=== PATIENT | female | born 1940 | race Caucasian/White ===

== ENCOUNTER → 2018-05-05 10:47 | Outpatient (CLI) | payer MEDICARE, SELFPAY ==
--- NOTE | 2018-05-05 10:54 | RAD_ITS ---
STUDY: X-RAY - ABDOMEN/PELVIS REASON FOR EXAM: Female, 77 years old. Abdominal pain and back pain TECHNIQUE: AP supine and upright views of the abdomen and pelvis. COMPARISON: None. FINDINGS: Normal visualized lung bases. There is a moderate amount of colonic fecal material. There is no demonstrated free abdominal air. The visualized liver, spleen and kidneys are grossly normal in size and morphology. Normal soft tissue structures. Bilateral hip replacements RAD/Abd Inc Decub and/or Erect IMPRESSION: No acute findings Electronically Signed: Andrés Claudio DO at 9:13 EDT Tel , Service support ,
== END ==
PROVIDERS: Family Provider Family Medicine; PCP Family Medicine; Visit Provider Family Medicine
DX: R10.9 Unspecified abdominal pain (principal)
CPT/HCPCS: 74019

== ENCOUNTER → 2018-07-25 11:10 | Outpatient (CLI) | payer MEDICARE, SELFPAY ==
--- NOTE | 2018-07-25 11:15 | RAD_ITS ---
STUDY: X-RAY - FACIAL BONES REASON FOR STUDY: Female, 78 years old. Fall 3 days ago. Multiple contusions. TECHNIQUE: 3 view(s) of the facial bones. COMPARISON: None. FINDINGS: Normal bilateral frontozygomatic and zygomatic-temporal arches. Normal bilateral medial and inferior orbital faustin. Normal bilateral orbits. Normal visualized nasal bones. Normal anterior nasal spine. The remaining visualized osseous structures are normal. Normal visualized paranasal sinuses. RAD/Facial Bones min 3 Views IMPRESSION: No visualized facial bone fracture or dislocation. Electronically Signed: Juan Manuel Castro DO at 18:04 EDT Tel [phone], Service support ,
--- NOTE | 2018-07-25 11:15 | RAD_ITS ---
STUDY: X-RAY - LEFT WRIST REASON FOR EXAM: Female, 78 years old. Fall 3 weeks ago. Multiple contusions and swelling. TECHNIQUE: 3 view(s) of the wrist were obtained. COMPARISON: None. FINDINGS: There is demineralization of the radius and ulna. There is degenerative arthrosis of the radiocarpal articulation. Normal distal radioulnar articulation. There is demineralization of the carpal bones. There is degenerative arthrosis of the carpal articulations. Normal carpometacarpal articulation of the thumb. Normal second through fifth carpometacarpal articulations. There is demineralization of the metacarpal bones. There is an oblique fracture through the distal shaft of the fifth metacarpal with palmar and cephalad displacement of the distal fracture fragment Soft tissue swelling over the lateral hand. RAD/Wrist min 3 Views IMPRESSION: 1. Displaced oblique fracture of the fifth metacarpal. 2. Osteopenia and degenerative changes of the wrist. Electronically Signed: Juan Manuel Castro DO at 18:07 EDT Tel [phone], Service support ,
== END ==
PROVIDERS: Family Provider Family Medicine; PCP Family Medicine; Referring Provider Family Medicine; Visit Provider Family Medicine
DX: T07.XXXA Unspecified multiple injuries, initial encounter (principal)
CPT/HCPCS: 70150; 73110

== ENCOUNTER → 2018-10-09 16:52 | Outpatient (CLI) | payer MEDICARE, SELFPAY ==
[2018-10-09 18:04] LABS: Absolute Lymphocyte Count 1.61 X10^3/ul (0.83-4.51); Absolute Neutrophil Count 3.9 X10^3/uL (2.0-7.7); Basophil# 0.02 X10^3/uL; Basophil% 0.3 % (0-1); Eosinophil# 0.09 X10^3/uL; Eosinophils% 1.5 % (0-5); Hematocrit 33.2 % (37-47); Hemoglobin 10.2 g/dl (12.0-15.0); Lymphocyte # 1.61 X10^3/ul (4.0); Lymphocyte % 26.6 % (19-41); Mean Corp Hgb Conc 30.7 g/gl (32-36); Mean Corpuscular Hgb 29.7 pg (27.0-32.0); Mean Corpuscular Volume 96.5 fL (81-99); Mean Platelet Vol. 11.1 fl (6.2-12.0); Monocyte# 0.43 X10^3/uL; Monocyte% 7.1 % (0-10); Neutrophil % 64.5 % (47-70); Platelet Count 165 K/mm3 (150-450); RBC Distribution Width CV 14.6 % (11.6-14.6); RBC Distribution Width SD 48.4 fl (35.1-43.9); Red Blood Count 3.44 M/mm3 (4.2-5.4); White Blood Count 6.1 K/mm3 (4.4-11.0)
[2018-10-09 18:13] LABS: ALB/GLOB Ratio 0.9 RATIO (0.9-2.4); AST(SGOT) 19 U/L (15-37); Alanine Aminotransfer ALT/SGPT 19 U/L (13-56); Albumin, Serum 3.2 g/dL (3.2-5.0); Alkaline Phosphatase 60 U/L (45-117); Anion Gap 9 (5-15); BUN 26 mg/dL (7-18); BUN/Creat Ratio 14.9 RATIO (10-20); Calcium,Total 8.4 mg/dL (8.5-10.1); Chloride 106 mmol/L (98-107); Creatinine, Serum 1.75 mg/dL (0.55-1.02); EST Glomerular Filtration Rate 30 mL/min (>60); Est Glom Filt Rate - Afr Amer 36 mL/min (>60); Globulin 3.7 g/dL (2.2-4.2); Glucose 98 mg/dL (74-106); Potassium 4.2 mmol/L (3.5-5.1); Protein, Total 6.9 g/dL (6.4-8.2); Sodium Level 143 mmol/L (136-145); Thyroid Stim Hormone (TSH) 2.04 uIU/mL (0.358-3.74)
[2018-10-09 18:19] LABS: POSITIVE COUNT NO; POSITIVE DIFFERENTIAL NO; POSITIVE MORPHOLOGY NO
--- OUTSIDE RECORDS SUMMARY | 2019-01-11 09:24 | XMS RPT_ITS ---
:1940 Author Organization OHIP Support Name Relationship Address Phone BUD BELL Unavailable [address] + [place] [address] BELL, RIAN/GUILLERMO Unavailable [address] + [place] [address] R Unavailable Unavailable Unavailable BELLBUD Unavailable [address] + [place] [address] BELL, RIAN/GUILLERMO Unavailable [address] + [place] [address] R Unavailable Unavailable Unavailable BELLBUD Unavailable [address] + [place] [address] BELL, RIAN/GUILLERMO Unavailable [address] + [place] [address] R Unavailable Unavailable Unavailable BELLBUD Brandon Unavailable [address] + [place] [address] ARABELLA BUD Unavailable [address] + [place] [address] BELLBUD Brandon Unavailable [address] + [place] [address] BELL, RIAN/GUILLERMO Unavailable [address] + [place] [address] R Unavailable Unavailable Unavailable BELLBUD Brandon Unavailable [address] + [place] [address] BELL, RIAN/GUILLERMO Unavailable [address] + [place] [address] R Unavailable Unavailable Unavailable BELLBUD Unavailable [address] + [place] [address] ARABELLABUD Unavailable [address] + [place] [address] BUD BELL Unavailable [address] + [place] [address] BUD BELL Unavailable [address] + [place] [address] Care Team Providers Name Role Phone SONALI BARBARA Attending Unavailable PHUC PARKER, DR. MOODY Primary Care Unavailable BARBARA LYON Attending Unavailable PHUC PARKER, DR. MOODY Primary Care Unavailable PHUC PARKER, DR. MOODY Primary Care Unavailable PHUC PARKER, DR. MOODY Attending Unavailable Jolliff, Candis Attending Unavailable Jolliff, Candis Primary Care Unavailable Jolliff, Candis Attending Unavailable Jolliff, Candis Referring Unavailable Jolliff, Candis Primary Care Unavailable Jolliff, Candis Attending Unavailable Jolliff, Candis Referring Unavailable Jolliff, Candis Primary Care Unavailable Jolliff, Candis Attending Unavailable Jolliff, Candis Referring Unavailable Jolliff, Candis Primary Care Unavailable Evangelista Mc Attending Unavailable Jolliff, Candis Referring Unavailable PROBLEMS PROBLEMS DATE TYPE CONDITION / CODE ATTENDING STATUS SOURCE 07/25/2018 Unknown T07.XXXA - Candis Lawler [facility] multiple Hospital injuries, initial Repository encounter / T07.XXXA(ICD-10) 05/05/2018 Unknown R10.9 - Phuc, Candis [facility] abdominal pain / Hospital R10.9(ICD-10) Repository PROCEDURES PROCEDURES No Procedure Records FoundRESULTS RESULTS ECHO, COMPLETE W/ Observed: 10/13/2018 Status: F Source: [place] CONTRAST 2:24 PM [facility] Cardiovascular Services [address] [place] [address] Echo Complete W/ Contrast 10/13/18 1252 MR#: [id number] Acct: [id number] Name: GIOVANNY BELL Rep #: [id number] : 1940 78 From: Evangelista Mc MD Attending Dr: Candis Lawler MD Status: REG CLI Ordering Dr: Candis Lawler MD Date: 10/13/18 Location: [facility] Sex: F C Admitted: Reason For Study: EDEMA Procedure This was a 2D Doppler, Color Flow transthoracic echocardiogram. The study was technically difficult. Due to left mastectomy and prosthesis. Exam performed in department. Left Ventricle Normal size and thickness. The estimated ejection fraction is 65 %. Stage 1 diastolic dysfunction. No regional wall motion abnormalities noted. Right Ventricle Normal size and thickness. Normal systolic function. Atria The left atrium is mildly enlarged. The right atrium is mildly enlarged. Normal atrial septum. Mitral Valve The mitral valve is structurally normal. No prolapse or stenosis seen. Trivial mitral valve insufficiency. Tricuspid Valve Normal tricuspid valve. Trivial tricuspid valve insufficiency. Right ventricular systolic pressure estimated to be 37 mmHg. Aortic Valve Trisinus/trileaflet aortic valve. Mild diffuse aortic valve thickening. Pulmonic Valve The pulmonic valve is not well visualized. Great Vessels Normal aortic root. Normal arch. Pericardium/Pleural No pericardial effusion. Medication 22 gauge I.V. with prn adaptor inserted into right arm. Diluted definity 2.0ml given slow IV push to enhance endocardial definition. MMode/2D Measurements AND Calculations LVIDd: 4.6 cm IVSd: 0.89 cm Ao root diam: 3.2 cm LVIDs: 2.7 cm LVPWd: 0.88 cm RVDd: 3.0 cm FS: 40.4 % LAV(MOD-bp): 70.6 ml LA A4 area: 22.1 cm2 RA A4 area: 21.6 cm2 LAV(MOD-bp) Indexed: 40.2 ml/m2 LAV(MOD-sp2): 63.1 ml LAV(MOD-sp4): 68.9 ml Time Measurements MV dec time: 0.23 sec Doppler Measurements AND Calculations MV E max kvng: 84.4 cm/sec Lat Peak E' Kvng: 3.7 cm/sec Med Peak E' Kvng: 4.0 cm/sec MV A max kvng: 91.8 cm/sec E/E' lat: 22.6 E/E' med: 21.1 MV E/A: 0.92 Ao V2 max: 147.8 cm/sec LV V1 max: 83.0 cm/sec PA V2 max: 55.4 cm/sec Ao max P.7 mmHg LV V1 max P.8 mmHg TR max kvng: 280.4 cm/sec TR max P.5 mmHg Interpretation Summary The estimated ejection fraction is 65 %. Stage 1 diastolic dysfunction. Trivial mitral valve insufficiency. Trivial tricuspid valve insufficiency. Right ventricular systolic pressure estimated to be 37 mmHg. The study was technically difficult. There is no comparison study available. Contrast injection was performed. Ordering Physician: Candis Lawler Referring Physician: Candis Lawler Performed By: Love Toro RDCS, RVT 10/13/18 1424 Date Evangelista Mc MD CC: Candis Lawler MD Date Dictated: 10/13/18 1252 Date Transcribed: 10/13/18 142 Machine Buffer: Signed COMPREHENSIVE METABOLIC Collected: 10/09/2018 Status: F Source: [place] LONGORIA 4:55 PM [facility] TYPE CODE TESTS RESULT OUT OF RANGE REFERENCE UNITS LAB L501.0100 74-106 mg/dL Normal GLU 98 Result Comment: Please note revised GLUCOSE reference range effective 2017. LAB L501.1000 7-18 mg/dL High BUN 26 LAB L501.1100 0.55-1.02 mg/dL High CREAT,SERUM 1.75 Result Comment: The validity of the calculated GFR AND GFRAA in patients over 70 years has not been determined. Clinical correlation is essential. LAB L501.1110 >60 mL/min Low EST GFR 30 Result Comment: Non- GFR Calc LAB L501.1115 >60 mL/min Low EST GFR - AA 36 Result Comment: GFR Calc LAB L501.1300 10-20 RATIO Normal BUN/CRE 14.9 LAB L501.1500 6.4-8.2 g/dL T Normal PROT 6.9 LAB L501.1800 3.2-5.0 g/dL Normal ALB 3.2 LAB L501.1950 2.2-4.2 g/dL Normal GLOB 3.7 LAB L501.2000 0.9-2.4 RATIO Normal A/G 0.9 LAB L501.2200 8.5-10.1 mg/dL Low CA 8.4 LAB L501.4100 15-37 U/L Normal AST 19 LAB L501.4305 45-117 U/L Normal ALK P 60 LAB L501.4405 13-56 U/L Normal ALT 19 LAB L501.4600 0.20-1.00 mg/dL T Normal BILI 0.30 LAB L501.5300 136-145 mmol/L NA Normal 143 LAB L501.5600 3.5-5.1 mmol/L K Normal 4.2 LAB L501.5900 98-107 mmol/L CL Normal 106 LAB L501.6100 21.0-32.0 mmol/L Normal CO2 28.0 LAB L501.6200 5-15 Normal GAP 9 Performed By: #### L500.4050, L501.9520 #### [facility] [address] [place], [place], [address] THYROID STIM HORMONE Collected: 10/09/2018 Status: F Source: [place] (TSH) 4:55 PM [facility] TYPE CODE TESTS RESULT OUT OF RANGE REFERENCE UNITS LAB L501.9520 0.358-3.74 uIU/mL Normal TSH 2.04 Performed By: #### L500.4050, L501.9520 #### [facility] [place], [address] CBC W/DIFF, AUTOMATED Collected: 10/09/2018 Status: F Source: [place] 4:55 PM [facility] TYPE CODE TESTS RESULT OUT OF RANGE REFERENCE UNITS LAB L100.1000 4.4-11.0 K/mm3 Normal WBC 6.1 LAB L100.1200 4.2-5.4 M/mm3 Low RBC 3.44 LAB L100.1300 12.0-15.0 g/dl Low HGB 10.2 LAB L100.1400 37-47 % Low HCT 33.2 LAB L100.1500 81-99 fL Normal MCV 96.5 LAB L100.1600 27.0-32.0 pg Normal MCH 29.7 LAB L100.1700 32-36 g/gl Low MCHC 30.7 LAB L100.1810 11.6-14.6 % Normal RDW CV 14.6 LAB L100.1820 35.1-43.9 fl High RDW SD 48.4 LAB L100.1900 150-450 K/mm3 Normal PLT 165 LAB L100.2000 6.2-12.0 fl Normal MPV 11.1 LAB L100.2100 47-70 % Normal NEUT% 64.5 LAB L100.2200 19-41 % Normal LY% 26.6 LAB L100.2300 0-10 % Normal MONO% 7.1 LAB L100.2400 0-5 % Normal EO% 1.5 LAB L100.2500 0-1 % Normal BASO% 0.3 LAB L100.2550 0.0-0.9 % Normal IM GRAN % 0.000 Result Comment: IG% - Immature Granulocytes (promyelocytes, myelocytes and metamyelocytes) > 1% indicates that a LEFT SHIFT is Present. LAB L100.2620 2.0-7.7 X10 3/uL Normal Absolute Neut 3.9 LAB L100.2720 0.83-4.51 X10 3/ul Normal Absolute Lymph 1.61 Performed By: #### L100.0100 #### [facility] [address] [place], [address] FACIAL BONES MIN 3 Observed: 07/25/2018 Status: F Source: [place] VIEWS 11:16 AM [facility] Imaging Services [address] [place] [address] Facial Bones min 3 Views MR#: [id number] Acct: [id number] Name: GIOVANNY BELL Rep #: [id number] : 1940 F 78 From: Juan Manuel Castro DO PCP: Candis Lawler MD Status: REG CLI Study: Facial Bones min 3 Views Date of Exam: 07/25/18 Exam# [id number] Ordering Dr: Candis Lawler MD STUDY: X-RAY - FACIAL BONES REASON FOR STUDY: Female, 78 years old. Fall 3 days ago. Multiple contusions. TECHNIQUE: 3 view(s) of the facial bones. COMPARISON: None. FINDINGS: Normal bilateral frontozygomatic and zygomatic-temporal arches. Normal bilateral medial and inferior orbital faustin. Normal bilateral orbits. Normal visualized nasal bones. Normal anterior nasal spine. The remaining visualized osseous structures are normal. Normal visualized paranasal sinuses. RAD/Facial Bones min 3 Views IMPRESSION: No visualized facial bone fracture or dislocation. Electronically Signed: Juan Manuel Castro DO at 18:04 EDT Tel [phone], Service support , CC: Candis Lawler MD Machine Buffer: Signed WRIST MIN 3 VIEWS Observed: 07/25/2018 Status: F Source: [place] 11:16 AM [facility] Imaging Services [address] [place] [address] Wrist min 3 Views MR#: [id number] Acct: [id number] Name: GIOVANNY BELL Rep #: [id number] : 1940 F 78 From: Juan Manuel Castro DO PCP: Candis Lawler MD Status: REG CLI Study: Wrist min 3 Views Date of Exam: 07/25/18 Exam# [id number] Ordering Dr: Candis Lawler MD STUDY: X-RAY - LEFT WRIST REASON FOR EXAM: Female, 78 years old. Fall 3 weeks ago. Multiple contusions and swelling. TECHNIQUE: 3 view(s) of the wrist were obtained. COMPARISON: None. FINDINGS: There is demineralization of the radius and ulna. There is degenerative arthrosis of the radiocarpal articulation. Normal distal radioulnar articulation. There is demineralization of the carpal bones. There is degenerative arthrosis of the carpal articulations. Normal carpometacarpal articulation of the thumb. Normal second through fifth carpometacarpal articulations. There is demineralization of the metacarpal bones. There is an oblique fracture through the distal shaft of the fifth metacarpal with palmar and cephalad displacement of the distal fracture fragment Soft tissue swelling over the lateral hand. RAD/Wrist min 3 Views IMPRESSION: 1. Displaced oblique fracture of the fifth metacarpal. 2. Osteopenia and degenerative changes of the wrist. Electronically Signed: Juan Manuel Castro DO at 18:07 EDT Tel [phone], Service support , CC: Candis Lawler MD Machine Buffer: Signed ABD INC DECUB Observed: 05/05/2018 Status: F Source: [place] AND/OR ERECT 11:02 AM [facility] Imaging Services [address] [place] [address] Abd Inc Decub and/or Erect MR#: [id number] Acct: [id number] Name: GIOVANNY BELL Rep #: [id number] : 1940 F 77 From: Andrés Claudio DO PCP: Candis Lawler MD Status: REG CLI Study: Abd Inc Decub and/or Erect Date of Exam: 05/05/18 Exam# [id number] Ordering Dr: Candis Lawler MD STUDY: X-RAY - ABDOMEN/PELVIS REASON FOR EXAM: Female, 77 years old. Abdominal pain and back pain TECHNIQUE: AP supine and upright views of the abdomen and pelvis. COMPARISON: None. FINDINGS: Normal visualized lung bases. There is a moderate amount of colonic fecal material. There is no demonstrated free abdominal air. The visualized liver, spleen and kidneys are grossly normal in size and morphology. Normal soft tissue structures. Bilateral hip replacements RAD/Abd Inc Decub and/or Erect IMPRESSION: No acute findings Electronically Signed: Andrés Claudio DO at 9:13 EDT Tel , Service support , CC: Candis Lawler MD Machine Buffer: Signed XR FLUORO GUIDANCE FOR Observed: 01/26/2018 Status: F Source: [facility] 8:38 AM [facility] REPOSITORY ORIGINAL Images acquired, not reported on this accession number. XR FLUORO GUIDANCE FOR Observed: 12/22/2017 Status: F Source: [facility] 8:03 AM [facility] REPOSITORY ORIGINAL Images acquired, not reported on this accession number. ALLERGIES ALLERGIES DATE TYPE / CODE NAME / CODE REACTION SEVERITY SOURCE 07/06/2017 Drug Sulfa Itching Unknown [facility]/4160 (Sulfonamide [facility] 36282(SNOMED Antibiotics)/ Repository CT) [id number](RX NORM) 06/20/2014 Drug gabapentin/F0 Nausea Unknown [facility] All[facility]/4160 02598057(RXNO [facility] 29876(SNOMED RM) Repository CT) ENCOUNTERS ENCOUNTERS ADMIT/DISCHARGE ACCOUNT NUMBER ADMITTING ENCOUNTER LOCATION SOURCE CLASS 10/13/2018 [id number] Ambulatory [facility] hospital [facility]ository 10/13/2018 [id number] Ambulatory [facility]MS[facility] Repository 10/09/2018 [id number] Ambulatory General acute hospital ding:[facility] Repository 10/05/2018 [id number] Ambulatory ABuilding:[facility] Repository 07/25/2018 [id number] Ambulatory General acute hospital ding:[facility] Repository 05/05/2018 [id number] Ambulatory General acute hospital ding:[facility] Repository 01/26/2018/01/27/20 [id number] Ambulatory BBuilding:[facility] DURoom: Health 0001Bed: [facility] Repository 12/22/2017/12/23/19 [id number] Ambulatory BBuilding:[facility] D[facility]: Health 0001Bed: A [facility] Repository PAYERS PAYERS ENCOUNTER GUARANTOR PAYER SUBSCRIBER SOURCE 10/13/2018 GIOVANNY Javier Primary GIOVANNY Lopez [id number] [facility] IMESD[facility]: Community [place] MEDICARE[place] [facility] [place] Number: Repository [address]Sti: 330 [id number] [phone] () Date:[id number] [address] [place] [address] 23460WD: 10/13/2018 Secondary NOT GIVENUNK Jessica Insurance:SELF PAY [facility] Number: Effective Repository Date:2018-10-10 10/13/2018 GIOVANNY Herrera Primary GIOVANNY [id number] Insurance:[facility]: Community [place] MEDICAREPolicy 1938[facility] [place] Number: Repository [address]Bku: 330 [id number] [phone] () Date:2703-42-42NZ [address] [place] [address] 38412GP: 10/13/2018 Secondary NOT GIVENUNK Jessica Insurance:SELF PAY [facility] Number: Effective Repository Date:2018-10-13 10/09/2018 Giovanny E Primary Giovanny E [facility] [id number] Insurance:[facility] C[facility] GrimesDOB: Community [place] MEDICAREPolicy [id number] Number: Repository [address]Ppn: 330 [id number] [phone] (HP) Date:4647-58-97VA [address] [place] [address] 80272MT: 10/09/2018 Secondary NOT GIVENUNK [place] Insurance:SELF PAY [facility] Number: Effective Repository Date:2018-10-09 10/05/2018 [facility] IMESDOB: [facility] [id number] INSCOPolicy Number: [id number] [facility] [id number] [address] [place] [address] Date:2018-11-09 [place] [address]~JEREMY@ [id number] [id number]: (209) SSNETEvaDARrhonda: Name:[phone] [place] [address] ()Tel: ([phone]) (HP)Tel: [phone]: (WP) [phone] ([phone] 07/25/2018 Giovanny E Primary Giovanny E [facility] [id number] Insurance:[employer] imesDOB: Community [place] MEDICAREPolicy [id number] Number: Repository [address]Kqv: 330 [id number] [phone] (HP) Date:2373-23-12VQ [address] [place] [address] 36773EE: 07/25/2018 Secondary NOT GIVENUNK [facility] Insurance:SELF PAY [facility] Number: Effective Repository Date:2018-07-25 05/05/2018 Giovanny Herrera Primary Giovanny Lopez [id number] [facility] MED[facility]AREPolicy [id number] [place] Number: Repository [address]Kpe: 330 [id number] [phone] (HP) Date:7137-22-30CO [address], [place] [address]DT: 05/05/2018 Secondary NOT GIVENUNK [place] Insurance:SELF PAY [facility] Number: Effective Repository Date:2018-05-05 01/26/2018 GIOVANNY E Primary GIOVANNY Herrera [facility] [id number] MEDICARE HMOPolicy [id number] Repository [address] Number: [address] [id number] [address]~[email or web address]@S Date:2018-01-09 794[address]Pmw: 330 [email or web address]: [phone] [phone] Name:[address] (HP)Tel: (000) (HP)Tel: [phone], [place] [phone] (WP) [phone] (WP) [phone]: 12/22/2017 GIOVANNY Javier KEARNSET Javier [facility]: Insurance[facility] [id number] MEDICARE HMOPolicy [id number] Repository [address]RE[address] Number: [address] [place] [id number] [address]~[email or web address] Date:2017-12-19 81053Yye: [phone]) [email or web address].COMTel: [phone] [phone] Name:[address] (HP)Tel: (000) (HP)Tel: [phone], [place] [phone] (WP) [phone] ([phone]:
== END ==
PROVIDERS: Family Provider Family Medicine; PCP Family Medicine; Visit Provider Family Medicine
DX: R60.0 Localized edema (principal)
CPT/HCPCS: 36415; 80053; 84443; 85025

== ENCOUNTER → 2018-10-13 12:40 | Outpatient (CLI) | payer MEDICARE, SELFPAY ==
--- NOTE | 2018-10-13 12:42 | ECHOCS_ITS ---
Reason For Study: EDEMA Procedure This was a 2D Doppler, Color Flow transthoracic echocardiogram. The study was technically difficult. Due to left mastectomy and prosthesis. Exam performed in department. Left Ventricle Normal size and thickness. The estimated ejection fraction is 65 %. Stage 1 diastolic dysfunction. No regional wall motion abnormalities noted. Right Ventricle Normal size and thickness. Normal systolic function. Atria The left atrium is mildly enlarged. The right atrium is mildly enlarged. Normal atrial septum. Mitral Valve The mitral valve is structurally normal. No prolapse or stenosis seen. Trivial mitral valve insufficiency. Tricuspid Valve Normal tricuspid valve. Trivial tricuspid valve insufficiency. Right ventricular systolic pressure estimated to be 37 mmHg. Aortic Valve Trisinus/trileaflet aortic valve. Mild diffuse aortic valve thickening. Pulmonic Valve The pulmonic valve is not well visualized. Great Vessels Normal aortic root. Normal arch. Pericardium/Pleural No pericardial effusion. Medication 22 gauge I.V. with prn adaptor inserted into right arm. Diluted definity 2.0ml given slow IV push to enhance endocardial definition. MMode/2D Measurements & Calculations LVIDd: 4.6 cm IVSd: 0.89 cm Ao root diam: 3.2 cm LVIDs: 2.7 cm LVPWd: 0.88 cm RVDd: 3.0 cm FS: 40.4 % LAV(MOD-bp): 70.6 ml LA A4 area: 22.1 cm2 RA A4 area: 21.6 cm2 LAV(MOD-bp) Indexed: 40.2 ml/m2 LAV(MOD-sp2): 63.1 ml LAV(MOD-sp4): 68.9 ml Time Measurements MV dec time: 0.23 sec Doppler Measurements & Calculations MV E max kvng: 84.4 cm/sec Lat Peak E' Kvng: 3.7 cm/sec Med Peak E' Kvng: 4.0 cm/sec MV A max kvng: 91.8 cm/sec E/E' lat: 22.6 E/E' med: 21.1 MV E/A: 0.92 Ao V2 max: 147.8 cm/sec LV V1 max: 83.0 cm/sec PA V2 max: 55.4 cm/sec Ao max P.7 mmHg LV V1 max P.8 mmHg TR max kvng: 280.4 cm/sec TR max P.5 mmHg Interpretation Summary The estimated ejection fraction is 65 %. Stage 1 diastolic dysfunction. Trivial mitral valve insufficiency. Trivial tricuspid valve insufficiency. Right ventricular systolic pressure estimated to be 37 mmHg. The study was technically difficult. There is no comparison study available. Contrast injection was performed. Ordering Physician: Candis Lawler Referring Physician: Candis Lawler Performed By: Love Toro RDCS, RVT
== END ==
PROVIDERS: Family Provider Family Medicine; PCP Family Medicine; Referring Provider Family Medicine; Visit Provider Family Medicine
DX: R60.0 Localized edema (principal)
CPT/HCPCS: 93306; Q9957; A4216; C8929

== ENCOUNTER → 2019-06-13 14:23 | Outpatient (CLI) | payer MEDICARE, SELFPAY ==
[2017-07-06 12:23] VITALS: BMI 23.3
--- NOTE | 2019-06-13 14:29 | RAD_ITS ---
STUDY: X-RAY CHEST REASON FOR EXAM: Female, 79 years old. Chest pain TECHNIQUE: Frontal and lateral views of the chest COMPARISON: 11/12/2014 FINDINGS: There is a stable large hiatal hernia. The lungs are clear. There are no pleural effusions. There is no pneumothorax. The heart is normal in size. The visualized osseous structures are within normal limits. RAD/Chest PA and Lateral IMPRESSION: Stable large hiatal hernia. No acute thoracic pathology. Electronically Signed: Aneudy Hammonds, at 15:09 EDT Tel , Service support ,
[2019-06-13 15:53] LABS: Absolute Lymphocyte Count 1.74 X10^3/uL (0.83-4.51); Absolute Neutrophil Count 10.9 X10^3/uL (2.0-7.7); Basophil# 0.02 X10^3/uL; Basophil% 0.1 % (0-1); Eosinophils% 0.7 % (0-5); Hematocrit 42.8 % (37-47); Hemoglobin 13.4 g/dL (12.0-15.0); Lymphocyte # 1.74 X10^3/ul (4.0); Lymphocyte % 12.6 % (19-41); Mean Corp Hgb Conc 31.3 g/dL (32-36); Mean Corpuscular Hgb 31.7 pg (27.0-32.0); Mean Corpuscular Volume 101.2 fL (81-99); Mean Platelet Vol. 10.3 fl (6.2-12.0); Monocyte# 1.07 X10^3/uL; Monocyte% 7.7 % (0-10); NRBC Flagged by Analyzer 0 % (0-5); Neutrophil # 10.86 X10^3/uL (2.7-7.7); Neutrophil % 78.5 % (47-70); Platelet Count 208 K/mm3 (150-450); RBC Distribution Width CV 14.8 % (11.6-14.6); RBC Distribution Width SD 54.4 fl (35.1-43.9); Red Blood Count 4.23 M/mm3 (4.2-5.4); White Blood Count 13.8 K/mm3 (4.4-11.0)
[2019-06-13 16:10] LABS: Erythrocyte Sedimentation Rate 13 mm/hr (0-30)
[2019-06-13 16:27] LABS: ALB/GLOB Ratio 0.9 RATIO (0.9-2.4); AST(SGOT) 16 U/L (15-37); Alanine Aminotransfer ALT/SGPT 34 U/L (13-56); Albumin, Serum 3.6 g/dL (3.2-5.0); Alkaline Phosphatase 70 U/L (45-117); Anion Gap 7 (5-15); BUN 21 mg/dL (7-18); BUN/Creat Ratio 10.8 RATIO (10-20); Calcium,Total 9.1 mg/dL (8.5-10.1); Chloride 108 mmol/L (98-107); Creatinine, Serum 1.95 mg/dL (0.55-1.02); EST Glomerular Filtration Rate 26 mL/min (>60); Est Glom Filt Rate - Afr Amer 32 mL/min (>60); Globulin 4.1 g/dL (2.2-4.2); Glucose 96 mg/dL (74-106); Potassium 4.3 mmol/L (3.5-5.1); Protein, Total 7.7 g/dL (6.4-8.2); Sodium Level 142 mmol/L (136-145); Thyroid Stim Hormone (TSH) 3.73 uIU/mL (0.358-3.74)
== END ==
PROVIDERS: Family Provider Family Medicine; PCP Family Medicine; Referring Provider Family Medicine; Visit Provider Family Medicine
DX: R53.81 Other malaise (principal)
CPT/HCPCS: 36415; 71046; 80053; 84443; 85025; 85652

== ENCOUNTER 2019-06-13 18:48 | Inpatient (IN) | payer MEDICARE, SELFPAY ==
[2019-06-13] VITALS (9 sets, daily range): BP systolic 103–154; BP diastolic 77–108; PULSE 67–97; RESP 17–21; TEMP 35.5–36.6; O2SAT 91–100; BMI 25.2; BMI 29.0; BMI 29.1
--- NOTE | 2019-06-13 18:50 | RAD_ITS ---
STUDY: X-RAY CHEST REASON FOR EXAM: Female, 79 years old. Myocardial infarction TECHNIQUE: Frontal view of the chest COMPARISON: 06/13/2019 FINDINGS: There is a stable large hiatal hernia noted. The lungs are clear. There are no pleural effusions. There is no pneumothorax. The heart is normal in size. The visualized osseous structures are within normal limits. RAD/Chest 1 View (Portable) IMPRESSION: No acute thoracic pathology. Electronically Signed: Aneudy Hammonds, at 19:04 EDT Tel , Service support ,
--- NOTE | 2019-06-13 18:53 | ED.DCSUM_ITS ---
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 EMS EKG prior to arrival reveals an acute myocardial infarction with ST elevation V3 through V5. Patient states pain started at rest. She complained of dyspnea and diaphoresis. She received aspirin in route. Prior similar symptoms: No Recent Illness/Hospitalization: No - Past Medical History (1) Benign essential HTN Status: Chronic (2) IBS (irritable bowel syndrome) Status: Chronic (3) Spinal stenosis Status: Chronic Past Medical History - Allergies and Home Meds Allergies/Adverse Reactions: Allergies Sulfa (Sulfonamide Antibiotics) Allergy (Verified 07/06/17 12:27) Itching gabapentin [From Neurontin] Adverse Reaction (Verified 06/20/14 11:02) Nausea Prior records reviewed: Yes Surgical History: hysterectomy Lives: Spouse/ Significant Other Smoking Status: Never smoker Alcohol: None Drugs: None Review of Systems General: Denies: Chills, Fever, Sweats Eyes: Denies: Visual changes - bilaterally, Diplopia ENT: Denies: Rhinorrhea, Sore throat Cardiovascular: Reports: Chest pain. Denies: Palpitations, Heart racing, -, - Respiratory: Reports: Dyspnea. Denies: Cough, Sputum, Dyspnea on exertion, Orthopnea, Paroxysmal nocturnal dyspnea, -, - Gastrointestinal: Denies: Abdominal pain, Nausea, Vomiting, Diarrhea, Melena, Hematochezia Genitourinary: Denies: Dysuria, Hematuria, Frequency Musculoskeletal: Denies: Back pain, Extremity Pain Skin: Denies: Rash, Wounds Neurological: Denies: Headache, Weakness, Numbness Hematologic: Reports: Easy bruising Allergy: Denies: Uticaria, Swelling of the mouth Physical Exam Inital Vital Signs reviewed: Yes General: Well nourished, Well developed, No Acute Distress Head: Normocephalic, Atraumatic Eyes: Perrl, EOMI ENT: Moist mucous membranes, No rhinorrhea Neck: Supple, Nontender Cardiovascular: Regular rate, Regular rhythm, No murmurs Respiratory: No distress, CTA bilaterally, Chest nontender Abdomen: Soft, Nontender, Nondistended, Normal bowel sounds Back: Nontender, Normal Inspection Extremities: Nontender, No edema Skin: Normal color, No rash, - - Tubal bruises noted lower extremity and bruises upper extremity. She states that bruises upper extremity from her dog. Negative for: Cyanosis, Jaundice, No Trauma Neurological: Alert, Oriented x3, Cranial nerves II-XII grossly intact, Normal Strength, Normal Sensation Psychological: Normal affect, Normal Mood Diagnostic/Tx/Re-eval Chest X-Ray - ED: 1 View, Read by ED Physician, Normal, Heart, Bony Structures, No Acute Disease, Chronic Changes, - - Illness rotated. Left hemidiaphragm is slightly elevated. There is a large hiatal hernia. There is no evidence of congestive heart failure or effusion. Osseous structures appear normal. There is chronic changes noted. - EKG Initial EKG Interpretation: Sinus Bradycardia - Trickle rate is 59. RI interval is 154 ms. QS duration 78 ms. QT duration to 136 ms. Lebec is normal. Patient has an acute anterior ST elevation OH with ST segment changes V2 through V5. - Medical Decision Making Patient received 180 mg of Brilinta and 4000 units of heparin. EKG reveals acute anterior ST elevation OH. Appropriate blood work was ordered. Dr. Mc was made aware of patient. Spoke with hospitalist. Patient was consented for emergent cardiac catheterization by me. She stated she had no questions because her has 10 stents and knows what needs to be done. Blood pressure treated. She is receiving a 500 cc bolus. Dilaudid was changed to fentanyl which has less hemodynamic effect than Dilaudid. - Critical Care Time Critical care time (excluding procedures): 30-74 minutes - Critical care time 31 minutes, Discussing w/Patient &/or Family/Valve Fitter, Discussing w/Consultants - Spoke with pelt grader regarding patient's history, physical and EKG findings, Arranging Admission or Transfer, Performing Direct Patient Care at Bedside - At bedside to manage hypotension and accompanied patient to Registered Nurse Supervisor until hospitalist arrived and transfer of care ED Disposition - Plan for ED Patient: Disposition: Acute Care Hospital [facility] Diagnosis: Shock, cardiogenic, Acute OH, anterior wall, initial episode of care
--- NOTE | 2019-06-13 19:04 | ED.RN ---
POOLROOM TABLE ATTENDANT RN CALLED IN, HE IS ON HIS WAY IN, GAVE NAME AND REQUESTED.
[2019-06-13] MEDS: Ondansetron 4 MG/2 ML Vial IV (19:06)
[2019-06-13] MEDS: TICAGRELOR 90 MG TABLET 180 MG PO (19:06)
[2019-06-13] MEDS: Heparin Injection (Vial) 5,000 UNIT/ML VIAL 4000 UNIT IV (19:06)
[2019-06-13] MEDS: fentaNYL 100 MCG/2 ML Ampul 50 MCG IV (19:07)
[2019-06-13 19:10] LABS: Absolute Lymphocyte Count 2.39 X10^3/uL (0.83-4.51); Absolute Neutrophil Count 11.3 X10^3/uL (2.0-7.7); Basophil# 0.02 X10^3/uL; Basophil% 0.1 % (0-1); Eosinophil# 0.08 X10^3/uL; Eosinophils% 0.5 % (0-5); Hematocrit 40.6 % (37-47); Hemoglobin 13.2 g/dL (12.0-15.0); Lymphocyte # 2.39 X10^3/ul (4.0); Lymphocyte % 15.8 % (19-41); Mean Corp Hgb Conc 32.5 g/dL (32-36); Mean Corpuscular Hgb 32.3 pg (27.0-32.0); Mean Corpuscular Volume 99.3 fL (81-99); Mean Platelet Vol. 10.8 fl (6.2-12.0); Monocyte# 1.31 X10^3/uL; Monocyte% 8.6 % (0-10); NRBC Flagged by Analyzer 0 % (0-5); Neutrophil # 11.31 X10^3/uL (2.7-7.7); Neutrophil % 74.7 % (47-70); Platelet Count 147 K/mm3 (150-450); RBC Distribution Width CV 14.7 % (11.6-14.6); RBC Distribution Width SD 53.5 fl (35.1-43.9); Red Blood Count 4.09 M/mm3 (4.2-5.4); White Blood Count 15.2 K/mm3 (4.4-11.0)
--- NOTE | 2019-06-13 19:10 | CM.ED ---
Social Work Consult: STEMI Informant: Self referral. Met with patient daughter, Eboni. This nursing home social worker providing support and bridging dorene between medical team and patient/patient family. Eboni voicing to understand what is happening and to have no further questions. This nursing home social worker inquiring as to if any other family needs to be contacted. Eboni stating to be able to notify other family. This nursing home social worker escorting Eboni to hospital laboratory technician waiting area. Patient lives at home with patient spouse and per Eboni has been independent with all daily task and functions. Charity Vance MSW, MARCO
[2019-06-13] MEDS: 0.9% Normal Saline 1,000 ML 999 ML IV (19:13)
[2019-06-13 19:16] LABS: International Normalized Ratio 1.1; Prothrombin Time (Protime)PT. 13.6 SECONDS (11.7-14.9)
[2019-06-13 19:18] LABS: Partial Thromboplast Time 77.9 Seconds (24.1-36.2)
[2019-06-13 19:26] LABS: Anion Gap 6 (5-15); BUN 23 mg/dL (7-18); BUN/Creat Ratio 11.7 RATIO (10-20); Chloride 110 mmol/L (98-107); Creatinine, Serum 1.96 mg/dL (0.55-1.02); EST Glomerular Filtration Rate 26 mL/min (>60); Est Glom Filt Rate - Afr Amer 32 mL/min (>60); Estimated Creatinine Clearance 20.26 ml/min; Glucose 139 mg/dL (74-106); Potassium 4.3 mmol/L (3.5-5.1); Sodium Level 138 mmol/L (136-145)
--- NOTE | 2019-06-13 19:46 | HP.PCM_ITS ---
Problem List (1) Shock, cardiogenic Status: Acute (2) Acute MS, anterior wall, initial episode of care Status: Acute (3) Benign essential HTN Status: Chronic History of Present Illness Date of Admission: 06/13/19 Chief Complaint: Chest pain - 1 day The patient is a 79 year old F with past medical history of hypertension, breast CA s/p mastectomy, IBS, spinal stenosis who presented with chest pain that started at 5 PM while she was sitting down. Patient's chest pain was midsternal associated with dyspnea and diaphoresis. History was obtained from the ED physician as the patient was seen in the cardiac cath and was lethargic. EKG obtained by EMS showed ST segment elevation in lead II, II, aVF as well as V3 to V5. His admitting vitals show blood pressure 154/106, temp 97.8F, heart rate 87, respiratory rate 18, SPO2 was 97% on 4 L of oxygen. Repeat EKG done here showed the same thing. Admitting blood work showed WBC count of 15.2, Hb 13.2, platelet count 147, INR 1.1, BMP was significant for BUN of 23, creatinine 1.96, troponin was 0.219. Admitting chest x-ray showed no acute intrathoracic pathology. Patient received Brilinta. She was soon found to be hypotensive in the ED with blood pressure in the 70s, received 1 L bolus of fluid. Blood pressure in the cardiac cath was 120/75. Her oxygen saturation was in the 70s, she looks very dusky/cyanosed, started on high flow facemask Past Medical History Past Medical History (Chronic Problems): Chronic Problems Spinal stenosis (Chronic) IBS (irritable bowel syndrome) (Chronic) Benign essential HTN (Chronic) Allergies Sulfa (Sulfonamide Antibiotics) Allergy (Verified 07/06/17 12:27) Itching gabapentin [From Neurontin] Adverse Reaction (Verified 06/20/14 11:02) Nausea Home Medications: Ambulatory Orders Medication Instructions Recorded Atenolol [Tenormin (beta tee)] 40 mg PO DAILY 06/20/14 Hydrocodone Bitart/Apap 5-325 1 - 2 tablet PO Q4H PRN PRN #90 07/03/14 [Drayton 5/325] tablet Aspirin E.C. [Ecotrin] 81 mg PO BIDCM 07/06/17 Hydrocodone Bitart/Apap 5-325 1 tablet PO Q6H PRN PRN #20 tablet 07/06/17 [Drayton 5MG-325MG] Citalopram [Celexa] 20 mg PO DAILY 06/13/19 Hydrocodone/Acetaminophen 1 tab PO Q8H 06/13/19 [Hydrocodone-Acetamin 7.5-325] Meloxicam 15 mg PO DAILY 06/13/19 Metoprolol Succinate [Toprol Xl] 50 mg PO DAILY 06/13/19 Oxybutynin Chloride [Oxybutynin 5 mg PO DAILY 06/13/19 Chloride ER] Pregabalin [Lyrica] 50 mg PO DAILY 06/13/19 Surgical History: hysterectomy, mastectomy Psychiatric History: No pertinent psych hx IT TRAINER History: No pertinent IT TRAINER history Lives: Spouse/ Significant Other Smoking Status: Former smoker Alcohol: None Drugs: None - *Family History Maternal History Items: Unknown Paternal History Items: Unknown Review of Systems Unable to obtain accurate/complete ROS d/t: Unable to obtain as patient was lethargic VTE Information - Inpt Only VTE Present on Admission: No VTE Pharm Prophylaxis ordered?: Yes Patient Problems: Active and Suspected Problems Shock, cardiogenic (Acute) Acute MS, anterior wall, initial episode of care (Acute) - Physical Exam General: Alert, Cooperative, Lethargic, - - on high flow oxygen via facemask, patient looks cyanotic with duskiness of the face HEENT: Atraumatic, PERRLA, EOMI, Normocephalic Oral: Dry Mucosa Neck: Supple, No JVD, Negative Carotid Bruits Lungs: Clear to auscultation, Normal air movement Cardiovascular: Regular rate, Regular Rhythm, Normal S1, Normal S2, No murmurs Abdomen: Bowel Sounds Present, Soft, Non Tender, Non-Distended, No Hepato- splenomegaly Extremities: No edema Skin: No rashes, - - Patient's extremities and face was dusky, cyanosis, improved with high flow oxygen Musculoskeletal: No Tenderness to Palpation of Joints or Extremities Lymphatic: No Cervical, Supraclavicular, or Inguinal Adenopathy Neurological: Cranial nerves II-XII grossly intact, Neuro grossly intact Psych/Mental Status: Normal Affect, Appropriate Vital Signs Temp Pulse Resp BP Pulse Ox 98 F 77 18 141/102 H 98 06/13/19 18:54 06/13/19 18:54 06/13/19 18:54 06/13/19 18:54 06/13/19 18:54 Oxygen Flow Rate (L/min) 4 Oxygen Delivery Method Nasal Cannula Weight: 68.7 kg Body Mass Index (BMI) 25.2 Intake and Output for Last 24 Hours 06/11/19 06/12/19 06/13/19 23:59 23:59 23:59 Intake Total 500 / 500 Balance 500 / 500 Laboratory Tests Past 24 Hrs 06/13/19 06/13/19 06/13/19 19:00 19:00 19:00 WBC 15.2 H RBC 4.09 L Hgb 13.2 Hct 40.6 MCV 99.3 H MCH 32.3 H MCHC 32.5 RDW Std Deviation 53.5 H RDW Coeff of Barry 14.7 H Plt Count 147 L MPV 10.8 Immature Gran % (Auto) 0.300 Neut % (Auto) 74.7 H Lymph % (Auto) 15.8 L Evans % (Auto) 8.6 Eos % (Auto) 0.5 Baso % (Auto) 0.1 Absolute Neuts (auto) 11.3 H Absolute Lymphs (auto) 2.39 Nucleated RBC % 0 PT 13.6 INR 1.1 APTT 77.9 H Sodium 138 Potassium 4.3 Chloride 110 H Carbon Dioxide 22.0 Anion Gap 6 BUN 23 H Creatinine 1.96 H Estim Creat Clear Calc 20.26 Est GFR (MDRD) Af Amer 32 L Est GFR (MDRD) Non-Af 26 L BUN/Creatinine Ratio 11.7 Glucose 139 H Calcium 9.0 Troponin I 0.219 H Assessment/Plan All Active Problems Shock, cardiogenic (Acute) Acute MS, anterior wall, initial episode of care (Acute) 79 year old F with past medical history of hypertension, IBS, spinal stenosis who presented with chest pain that started at 6 PM while she was sitting down. 1. Acute STEMI, BENI score 8, EKG shows ST segment elevation in the 2 3 aVF as well as V3 to 6 Patient is undergoing cardiac cath, given Brilinta, editor house organ consulted Plan: Admit to ICU, continue on post STEMI protocol, continue to monitor vitals closely, continue per cardiology's recommendations 2. Transient hypotension likely related to acute MS, responded to IV fluid bolus, continue to monitor 3. Acute hypoxic respiratory failure, unclear etiology for now, likely related to use of fentanyl for pain in an opioid naive patient Patient is admitting chest x-ray shows hiatal hernia, no acute intrathoracic pathology Patient was diagnosed, managed on high flow facemask plan: We will continue to monitor on oxygen, encourage use of incentive spirometer, breathing treatments as needed 4. Hypertension, home med list is yet to be updated, continue to monitor vitals 5. History of breast CA status post mastectomy, will need to be followed in the outpatient. 6. Rest of chronic medical conditions including IBS, spinal stenosis are stable. 7. DVT PPx- per editor house organ Code Visit Inpatient E&M: 49209 Init Hosp L3
[2019-06-13] MEDS: HEPARIN/D5w 25,000 UNITS 25,000 UNITS/250 ML IV.SOLN. 8 UNITS IV (20:35)
--- NOTE | 2019-06-13 20:49 | CL.I_ITS ---
Patient Name: GIOVANNY BELL Study Date: 06/13/2019 Performing: Evangelista Mc MD Ht: 64.96 inches 165 cm : 1940 Wt: 152.12 lbs 69 kg Age: 79 Gender: female BSA: 1.76 PROCEDURE(S) PERFORMED [id number], LUTHER AND/OR PTCA, ARTERY OR GRAFT, SINGLE VESSEL [id number] INSERTION OB49-HRM/COR/LV CLINICAL PROFILE AND CO-MORBIDITIES Patient presents with STEMI for emergent cardiac cath. Indications: ACS <= 24 hrs, Suspected CAD Heart Failure: NYHA Class: 3, Newly Diagnosed: Yes, Heart Failure Type: Systolic Stress/Imaging Stress/Image Study Performed: No Angina Classification Anginal Classification w/in 2 Weeks: No symptoms CAD Presentations: STEMI. 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 Successful emergent IABP for cardiogenic shock and hypoxia. RECOMMENDATIONS Referred for immediate PCI Highly recommend quitting all tobacco products Follow up with primary audio video repairer Risk factor modification ASA Indefinitley Plavix for at least 12 months Routine post interventional care Refer for Outpatient Cardiac Rehab Manual sheath removal per protocol Follow up with Dr. Mc IABP at 1:2 Wean levophed to off keeping MAP>60 mm Hg. DESCRIPTION OF PROCEDURE The patient arrived to the procedure lab. The risks and benefits of the procedure as well as a full d escription of our services here and lack of surgical backup were fully explained to the patient and/o r their significant other prior to the catheterization. The Timeout was completed, verifying the jag ect patient and procedure. The patient's procedural site was prepped and draped in the usual fashion. Local anesthetic was given subcutaneously to right groin region with Lidocaine 2%. Using a modified Seldinger technique, arterial access was obtained via the right femoral artery, a 6Fr sheath was inse rted.. Right Coronary Artery selective angiography was then performed in multiple views using a 4 Fr . 3DRC catheter. Left Ventriculography was performed in HILLS projection using a 4 Fr. Pigtail catheter . LV to AO pullback pressures were then recordedSheath(s) - The arterial sheath was exchanged for IAB P introducer, Arrow 40cc 7.5F UltraFlex IABP - Qty: 1 Each Part #: [id number], A 7Fr 40cc IABP catheter was inserted into the right femoral artery, IABP settings: 1:2, The IABP catheter and sheath were secured in place, IABP Augumented BP: 129 mmHg Systemic BP: 102 mmHg EBU 3.5 Guide catheter was inserted and engaged into the LCA. Runthrough Guide wire was advanced to the LAD. 2 x 12 Emerge Balloon catheter was inserted. Balloon catheter was advanced across lesion in the LAD, mid. PTCA balloon inflated at 6 atms for 10 secs. PTCA balloon inflated at 6 atms for 8 s ecs. PTCA balloon inflated at 6 atms for 8 secs. PTCA balloon inflated at 7 atms for 9 secs. PTCA bal loon inflated at 6 atms for 7 secs. Angiogram performed post balloon dilatation. [place] AP inserted P ass # 1 Angiogram performed post exportation. [place] AP Removed 2.25 x 32 Synergy Drug Eluting stent was inserted. Drug Eluting stent was advanced across the lesion in the LAD, mid. Angiogram performed post stent deployment. 2.25 x 8 Synergy Drug Eluting stent was advanced across the lesion in the LAD, mid. Angiogram performed post stent deployment. 2.5 x 32 Synergy Drug Eluting stent was advanced acr oss the lesion in the LAD, mid. Angiogram performed post stent deployment. [place] AP inserted Pass # 2 [place] AP Removed 2.25 x 8 Synergy Drug Eluting stent was advanced across the lesio n in the LAD, mid. The arterial sheath was exchanged for IABP introducer CORONARY ANGIOGRAPHY DOMINANCE: Right Dominant LEFT HEART ASSESSMENT Left Ventricular Ejection Fraction: by LV Gram 50 % Depressed Left Ventricular systolic function LVEDP: 21 mmHg Elevated Left Ventricular End Diastolic Pressure Anterior Hypokinesis - Moderate. Apical Akinesis LEFT MAIN: Angiographically normal LEFT ANTERIOR DESCENDING ARTERY: MID LAD: is occluded CIRCUMFLEX ARTERY: Non-obstructive RIGHT CORONARY ARTERY: Angiographically normal INTERVENTION INFORMATION LESION SITE: LAD (Mid) Lesion Complexity: High/C, lesion at bifurcation: No, thrombus present: Yes, lesion length: 80 mm, cu lprit lesion: Yes Pre Stenosis: 100 % Pre intervention BENI flow: 0 PROCEDURE: Balloon Angioplasty, Thrombectomy, Drug Eluting Stent with pre dilatation. Post Stenosis: 0 % Post intervention BENI flow: 3 Lesion Devices: Medtronic 6 Fr EBU3.5 100cm Guide Catheter Terumo .014 Runthrough Extra Floppy 180cm straight Romel Sci EMERGE MR 2.00x12 BALLOON Romel Sci Synergy MR LUTHER 2.25x32 Romel Sci Synergy MR LUTHER 2.25x08 Romel Sci Synergy MR LUTHER 2.50x32 Romel Sci Synergy MR LUTHER 2.25x08 COMPLICATIONS No Complications PROCEDURE MEDICATIONS Oxygen: 6 L/min via non-rebreather mask Heparin 6000 unit(s) IV 06/13/2019 19:41:21 Heparin 25,000u / 250ml D5W @ 800 u/hr IV started 06/13/2019 20:25:21 Nitro 200 mcg IC 06/13/2019 19:44:15 Nitro 200 mcg IC 06/13/2019 19:44:15 Sodium Bicarbonate 50meq/50ml 1 amp 06/13/2019 20:31:04 IV Bolus: .9 NaCl 500 ml total 06/13/2019 19:54:14 SUMMARY OF HEMODYNAMIC DATA Time AIR REST ECG 19:23:05 LV 87/13, 21 20:12:56 LV 83/14, 20 20:13:01 LVp 84/13, 20 20:13:07 AOp 91/59 (73) 20:13:12 20:47:29 Signed By Evangelista Mc MD On 06/13/2019 20:48:50 Evangelista Mc MD
--- NOTE | 2019-06-13 21:33 | ECHOCS_ITS ---
Reason For Study: STEMI Procedure This was a 2D Doppler, Color Flow transthoracic echocardiogram. The study was technically difficult. Patient scanned supine on balloon pump. Exam performed portable in ICU/CCU. Left Ventricle Normal size and thickness. The estimated ejection fraction is 65 %. Stage 1 diastolic dysfunction. Septal [place] : Mildly hypokinetic. Right Ventricle Normal size and thickness. Normal systolic function. Atria Normal left atrium. Normal right atrium. Normal atrial septum. Mitral Valve The mitral valve is structurally normal. No prolapse or stenosis seen. Tricuspid Valve Normal tricuspid valve. Trivial tricuspid valve insufficiency. Right ventricular systolic pressure estimated to be 28 mmHg. Aortic Valve Normal aortic valve. Trisinus/trileaflet aortic valve. Pulmonic Valve The pulmonic valve is not well visualized. Great Vessels Normal aortic root. Normal arch. Pericardium/Pleural Small pericardial effusion. There are no echocardiographic indications of cardiac tamponade. 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 Free fluid around gelatinous mass of 0.9 to 1.3 cm. Medication Diluted definity 2.5ml given slow IV push to enhance endocardial definition. MMode/2D Measurements & Calculations LVIDd: 3.7 cm IVSd: 1.2 cm Ao root diam: 3.1 cm LVIDs: 2.7 cm LVPWd: 1.1 cm RVDd: 2.4 cm FS: 28.8 % LA dimension(2D): 2.5 cm Doppler Measurements & Calculations Ao V2 max: 93.8 cm/sec LV V1 max: 78.5 cm/sec PA V2 max: 84.6 cm/sec Ao max P.6 mmHg LV V1 max P.5 mmHg TR max evi: 232.4 cm/sec TR max P.7 mmHg Interpretation Summary The estimated ejection fraction is 65 %. Stage 1 diastolic dysfunction. Trivial tricuspid valve insufficiency. Right ventricular systolic pressure estimated to be 28 mmHg. There are no echocardiographic indications of cardiac tamponade. 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 Free fluid around gelatinous mass of 0.9 to 1.3 cm. The study was technically difficult. Contrast injection was performed. There is no comparison study available. Ordering Physician: Evangelista Mc Referring Physician: Evangelista Mc Performed By: Desire Terrazas, KRYSTIAN, RVT
--- NOTE | 2019-06-13 21:33 | EKG12_ITS ---
Test Reason : CP Blood Pressure : / mmHG Vent. Rate : 059 BPM Atrial Rate : 059 BPM P-R Int : 154 ms QRS Dur : 078 ms QT Int : 436 ms P-R-T Axes : 062 012 060 degrees QTc Int : 431 ms Sinus bradycardia Acute IN Abnormal ECG Confirmed by ROGER MC ([id number]), senior technical editor LILY DONG ([id number]) on 06/18/2019 1:43:46 PM Referred By: Roger Mc Confirmed By:ROGER MC
[2019-06-13] MEDS: 0.9% Normal Saline 1,000 ML 150 ML IV (23:37)
[2019-06-13] MEDS: 0.9% NaCl Peripheral Flush Adult/Peds IV (23:37)
[2019-06-14] VITALS (37 sets, daily range): BP systolic 61–132; BP diastolic 45–110; PULSE 97–171; RESP 14–26; TEMP 37.3–37.7; O2SAT 94–100; BMI 28.0
[2019-06-14 00:10] LABS: Partial Thromboplast Time > 250.0 Seconds (24.1-36.2)
[2019-06-14] MEDS: Nitroglycerin (INPATIENT USE) 0.4 MG TAB.SUBL SUBLINGUAL (00:17)
[2019-06-14] MEDS: Morphine 2 MG/ML Syringe IV ×3 (00:18→07:58)
[2019-06-14] MEDS: Nitroglycerin Infusion 250 ML 3 MG CONT INF (02:25)
--- NOTE | 2019-06-14 05:55 | RAD_ITS ---
HISTORY: STEMI 06/13BALLOON POSITION EXAMINATION/TECHNIQUE: XR Chest 1 View: Portable supine COMPARISON: 06/13/2019 FINDINGS: EKG leads in place. LINES/DEVICES: Intrathoracic aortic balloon pump which appears in satisfactory position with the distal catheter tip at the level of the aortic knob. Normal heart size. No vascular congestion or acute infiltrate. No significant pleural effusion. How to hernia. Atherosclerotic thoracic aorta. RAD/Chest 1 View (Portable) IMPRESSION: 1. The intrathoracic aortic balloon pump appears in satisfactory position. 2. No acute cardiopulmonary disease identified. at 0742 Reported and signed by: Zan Arrington MD Electronically Signed: Zan Arrington, at 7:41 EDT Tel , Service support ,
[2019-06-14 06:09] LABS: Hematocrit 26.7 % (37-47); Hemoglobin 8.3 g/dL (12.0-15.0); Mean Corp Hgb Conc 31.1 g/dL (32-36); Mean Corpuscular Hgb 32.3 pg (27.0-32.0); Mean Corpuscular Volume 103.9 fL (81-99); Mean Platelet Vol. 10.6 fl (6.2-12.0); Platelet Count 138 K/mm3 (150-450); RBC Distribution Width CV 15.5 % (11.6-14.6); RBC Distribution Width SD 58.6 fl (35.1-43.9); Red Blood Count 2.57 M/mm3 (4.2-5.4); White Blood Count 13.2 K/mm3 (4.4-11.0)
[2019-06-14 06:27] LABS: Partial Thromboplast Time 241.1 Seconds (24.1-36.2)
[2019-06-14 06:35] LABS: ALB/GLOB Ratio 0.8 RATIO (0.9-2.4); AST(SGOT) 132 U/L (15-37); Alanine Aminotransfer ALT/SGPT 134 U/L (13-56); Albumin, Serum 1.9 g/dL (3.2-5.0); Alkaline Phosphatase 56 U/L (45-117); Anion Gap 10 (5-15); BUN 19 mg/dL (7-18); BUN/Creat Ratio 13.8 RATIO (10-20); Calcium,Total 5.9 mg/dL (8.5-10.1); Chloride 122 mmol/L (98-107); Cholesterol 107 mg/dL (200); Creatinine, Serum 1.38 mg/dL (0.55-1.02); EST Glomerular Filtration Rate 39 mL/min (>60); Est Glom Filt Rate - Afr Amer 47 mL/min (>60); Estimated Creatinine Clearance 26.45 ml/min; Globulin 2.4 g/dL (2.2-4.2); Glucose 136 mg/dL (74-106); High Density Lipoprotein 37 mg/dL; Potassium 3.4 mmol/L (3.5-5.1); Protein, Total 4.3 g/dL (6.4-8.2); Sodium Level 150 mmol/L (136-145); Triglycerides 77 mg/dL; Very Low Density Lipoprotein 15 mg/dL (5-40)
[2019-06-14 07:15] LABS: ACT Activated Clotting Time 175 sec (74-137)
[2019-06-14 07:21] LABS: Blood Gas Specimen Type VEN; VBG BASE EXCESS -12 mmol/L (-1.0-3.5); VBG Bicarbonate 15 mmol/L (22-26); VBG Oxygen Content 16 mmol/L (23-33); VBG PO2 312 mmHg (25-40); VBG SO2 100 % (50-70); VBG pCO2 31.1 mmHg (41-51); VBG pH 7.29 (7.32-7.42)
[2019-06-14 07:21] LABS: ACT Activated Clotting Time 230 sec (74-137)
[2019-06-14] MEDS: Potassium Chloride 10mEq/100mL 10 MEQ/100 ML IV.SOLN. 100 MEQ IV BOLUS ×4 (07:45→12:58)
[2019-06-14] MEDS: Aspirin E.C. 81 MG Tablet PO (08:05)
[2019-06-14] MEDS: TICAGRELOR 90 MG TABLET PO (08:05)
[2019-06-14] MEDS: Tolterodine Tartrate 2 MG CAP.SA PO (08:06)
--- NOTE | 2019-06-14 08:19 | EKG12_ITS ---
Test Reason : AM EKG Blood Pressure : / mmHG Vent. Rate : 104 BPM Atrial Rate : 104 BPM P-R Int : 146 ms QRS Dur : 068 ms QT Int : 364 ms P-R-T Axes : 068 016 062 degrees QTc Int : 478 ms Sinus tachycardia T wave abnormality, consider lateral ischemia Abnormal ECG When compared with ECG of 13-JUN-2019 18:50, MANUAL COMPARISON REQUIRED, DATA IS UNCONFIRMED Confirmed by ROGER MC ([id number]), purchasing expeditor LILY DONG ([id number]) on 07/02/2019 2:57:43 PM Referred By: Roger Mc Confirmed By:ROGER MC
[2019-06-14 08:56] LABS: ACT Activated Clotting Time 153 sec (74-137)
--- NOTE | 2019-06-14 09:16 | CASEMGMT ---
Insurance review for In-network facilities for [employer] M[employer] if transfer is recommended: [facility], [facility], [facility], [facility], [facility], [facility], [facility], [facility], and [facility]. Parker BSN RN CM
--- NOTE | 2019-06-14 09:21 | PCM.PN.CARD ---
Subjectve: Patient seen and examined this morning. The patient had an episode of chest pain last evening, relieved with IV nitroglycerin but then returned this morning. Upon arrival the patient's balloon pump was at 1-1, and her augmented pressure was in the 120s. Hemoglobin dropped from 13 down to 8. Baseline bedside echo showed what appeared to be a gelatinous pericardial effusion inferior to the surface of the heart, with minimal peripheral free-floating fluid. Patient had a pericardial friction rub as well. There appeared to be no evidence of right ventricular tamponade, but there was some mild right atrial collapse. Indurated balloon pump placed at 1-1, and heparin and nitroglycerin were discontinued. Patient was typed and crossed for 1 unit of PRBCs which will be transfused later. She is awake and alert, answers questions appropriate. at the bedside. Monitor overnight showed sinus tachycardia with rare PVCs and 3 beats of nonsustained ventricular tachycardia. Right groin is clean/dry/intact with 1+ DP and PT pulses bilaterally. Objective: Vital Signs Temp Pulse Resp BP Pulse Ox 99.8 F H 103 H 18 86/51 L 97 06/14/19 09:00 06/14/19 09:00 06/14/19 09:00 06/14/19 09:00 06/14/19 09:00 Oxygen Flow Rate (L/min) 4 Oxygen Delivery Method Nasal Cannula Weight: 158 lb 1.143 oz Body Mass Index (BMI) 29.0 Intake and Output for Last 24 Hours 06/12/19 06/13/19 06/14/19 23:59 23:59 23:59 Intake Total 1999 1070.23 / 1070.23 Output Total 525 / 525 Balance 1999 545.23 / 545.23 General: Awake, Alert, Oriented x 3 HEENT: PERRL, EOMI, Sclera Non Icteric Neck: Supple, Good ROM, No Lymph Node Enlargement Lungs: Clear to auscultation Cardiovascular: Regular Rhythm, Normal S1, Normal S2, No Murmurs, No Gallops, Pericardial Friction Rub Vascular: No Carotid Bruits, Normal Femoral Pulses, Normal Radial Pulses, Normal Dorsalis Pedal Pulse, Normal Posterior Tibial Pulses Abdomen: Bowel Sounds Present, Soft, Non Tender, No HSM, No Organomegaly Extremities: No Cyanosis, No Clubbing, No edema Neurological: No Focal Motor or Sensory Deficit 08/21/19 19:00: WBC 15.2 H, RBC 4.09 L, Hgb 13.2, Hct 40.6, MCV 99.3 H, MCH 32.3 H, MCHC 32.5, Plt Count 147 L, MPV 10.8, Immature Gran % (Auto) 0.300, Neut % (Auto) 74.7 H, Lymph % (Auto) 15.8 L, Duval % (Auto) 8.6, Eos % (Auto) 0.5, Baso % (Auto) 0.1, Absolute Neuts (auto) 11.3 H, Nucleated RBC % 0 06/13/19 19:00: PT 13.6, INR 1.1, APTT 77.9 H 06/13/19 19:00: Sodium 138, Potassium 4.3, Chloride 110 H, Carbon Dioxide 22.0, Anion Gap 6, BUN 23 H, Creatinine 1.96 H, Est GFR (MDRD) Af Amer 32 L, Est GFR (MDRD) Non-Af 26 L, BUN/Creatinine Ratio 11.7, Glucose 139 H, Calcium 9.0, Troponin I 0.219 H 06/13/19 20:24: VBG pH 7.29 L, VBG pO2 312 H*, VBG O2 Sat (Calc) 100 H, VBG O2 Content 16 L, VBG Base Excess -12 L 06/13/19 23:30: Troponin I 35.100 H* 06/13/19 23:30: APTT > 250.0 H* 06/14/19 02:20: Troponin I 39.100 H* 06/14/19 05:45: WBC 13.2 H, RBC 2.57 L, Hgb 8.3 L, Hct 26.7 L, MCV 103.9 H, MCH 32.3 H, MCHC 31.1 L, Plt Count 138 L, MPV 10.6 06/14/19 05:45: Sodium 150 H, Potassium 3.4 L, Chloride 122 H, Carbon Dioxide 18.0 L, Anion Gap 10, BUN 19 H, Creatinine 1.38 H, Est GFR (MDRD) Af Amer 47 L, Est GFR (MDRD) Non-Af 39 L, BUN/Creatinine Ratio 13.8, Glucose 136 H, Calcium 5.9 L*, Total Bilirubin 0.30, Triglycerides 77, Cholesterol 107, LDL Cholesterol 55, VLDL Cholesterol 15, HDL Cholesterol 37 L 06/14/19 05:45: Troponin I 31.800 H* 06/14/19 05:45: APTT 241.1 H* 06/14/19 08:10: APTT 121.0 H* Rhythm: EKG: ECHO: Preliminary results as above. Final result pending. Stress Test: Cardiac Cath: PCI: CT Surgery: Holter monitor: EPS: PPM: CXR: Chest CT Scan: Medical Necessity - Tobacco Use Smoking Status: Never smoker Assessment/Plan 1. Coronary artery disease: The patient presented with acute anterior wall myocardial infarction requiring emergent angioplasty and stenting x4 to the LAD with associated thrombectomy. Echocardiogram this morning demonstrates a circumferential gelatinoid is adhered pericardial effusion, with minimal right atrial collapse, no evidence of right ventricular collapse. It is possible the patient may have had a wire perforation or a dehiscence during the final angioplasty and stenting of the distal LAD. At this point the patient is hemodynamically stable although somewhat tachycardic. Her hemoglobin has decreased from 13 to around 8.0. I recommended a type and cross of 2 units with transfusion of 1 unit at this time. In addition we have discontinued her heparin, and will keep the balloon pump at 1: 1. I discussed the patient's situation with Dr. Gerardo Mejia, cardio vascular surgeon of [facility], who is agreed to accept the patient on precautionary terms in case the patient requires pericardial evacuation. Arrangements will be made for the cardiac catheterization film and echocardiogram found to be copied and transferred with the patient. The patient will either be transferred by ground or go by air which ever is first available. Per Dr. Mejia's request, we will keep the balloon pump in a 1:1. Patient did receive baby aspirin and Brilinta this morning for her new stents. Would recommend repeating echocardiogram upon arrival to [facility] to get an update on the patient's pericardial condition. 2. We will hold off on antihypertensive medications at this time until her pericardial effusion has been evaluated and/or treated. 3. Hyperlipidemia: Continue statin based medications once clinically stable. 4. I explained the findings of the echocardiogram to both the patient and the patient's , both of agreed for transfer to [facility]. We will transfer once bed is available. Her graph 5. Thank you very much for the opportunity to participate in the cardiac care of your patient.
--- NOTE | 2019-06-14 09:27 | NURSING ---
0810- Dr Mc at bedside to assess patient. Echo currently being performed at the bedside, Dr Mc observing. Per Dr Mc, Pericardial effusion present on echo, nitro gtt and heparin gtt discontinued at this time per verbal order by Dr Mc. Blood collected and sent to lab. 0900- Dr Mc arranging to have patient transferred to [facility] for continued care.
--- NOTE | 2019-06-14 09:58 | CRPHASE1 ---
Patient Communication PHII Cardiac Rehab Discussed with Patient:: Yes Guide to Cardiac Rehab Given to Patient:: Yes Cardiac Rehab Facility Choice List Given to Patient:: Yes - [facility] Choice Program [facility] CR PHII:: Communication Given to CR, Refer to [facility] Management Professor:: Evangelista Mc PCP:: Candis Lawler Refer Phase II Cardiac Rehab:: Yes Sessions:: 36 sessions - 3 days/wk, 12 weeks Phase I Charge:: Level I - Education Risk Factors/Lifestyle Smoking Status: Former smoker Hx Hypertension: Yes Hx Dyslipidemia: Yes Hx Obesity: No Height: 5 ft 3 in Weight:: 158 lb BMI: 28.0 Post-Menopausal: Yes Laboratory Values: Cardiac Rehab Phase I Labs Triglycerides 77 mg/dL (-199) 06/14/19 05:45 Cholesterol 107 mg/dL (200) 06/14/19 05:45 55 mg/dL (0-130) 06/14/19 05:45 37 mg/dL (40-) L 06/14/19 05:45 Phase I Education Given On:: [place] - Pt awaiting transfer to [facility] with and daughter at bedside. CR booklet briefly explained and given to daughter. Verballize understanding. Issues Affecting Care:: Physical - awaiting transfer to [facility] Knowledge of Condition:: Yes Learning Preferences: Written Medical/Surgical History AK:: Yes - STEMI Hypertension:: Yes Dyslipidemia:: Yes Cancer:: Yes - breast s/t mastectomy Other Medical/Surgical Issues:: spinal stenosis Discharge/Home/Social Eval Discharge Disposition: Acute Care Facility - pending to [facility] Marital Status: Cardiac Rehabilitation Info Cardiac Rehabilitation Program Information: Cardiac Rehabilitation is important for patients like you who are recovering from a heart problem. Cardiac rehabilitation programs are recognized as integral to the continued care of the patient with coronary heart disease. The cardiac rehabilitation program is designed to optimize a patient's physical, psychological, and social functioning. Health career technical supervisor work in cardiac rehabilitation programs and assist you with getting the treatments you need to get stronger and healthier - like exercise, healthy eating habits, and medications. Cardiac rehabilitation has been show to help people with heart problems live longer and have better life enjoyment than people who do not go to cardiac rehabilitation. Please contact the Cardiac Rehabilitation Program at [facility] at in two weeks if you have not heard from them.
--- NOTE | 2019-06-14 10:00 | EKG12_ITS ---
Test Reason : CP Blood Pressure : / mmHG Vent. Rate : 110 BPM Atrial Rate : 110 BPM P-R Int : 146 ms QRS Dur : 068 ms QT Int : 350 ms P-R-T Axes : 067 009 067 degrees QTc Int : 473 ms Sinus tachycardia with Premature atrial complexes Otherwise normal ECG Possible acute anterolateral CO vs. pericarditis When compared with ECG of 14-JUN-2019 05:21, MANUAL COMPARISON REQUIRED, DATA IS UNCONFIRMED Confirmed by ROGER MC ([id number]), associate editor LILY DONG ([id number]) on 07/02/2019 2:59:22 PM Referred By: Roger Mc Confirmed By:ROGER MC
--- NOTE | 2019-06-14 10:05 | CRPH1.INSTRU ---
General Education CAD and cardiac anatomy and function:: Not instructed - Pt awaiting transfer to [facility] with and daughter at bedside. CR booklet briefly explained and given to daughter. Smoking Patient Nicotine/Smoking Risk Factors Are:: Non-smoker Recommendations Include:: Previous smoker; encourage continued cessation Nicotine/Smoking Response Code:: Needs reinforcement Dyslipidemia Recommendations Include:: Lipid profile provided Dyslipidemia Response Code:: Needs reinforcement Hypertension Recommendations Include:: Maintain BP <130/85, DASH dietary guidelines, Decrease/maintain normal body weight, Moderation of ETOH Hypertension:: Needs reinforcement Heart Disease Heart Disease Response Code:: Not instructed Diabetes Diabetes:: Not instructed Metabolic Syndrome Metabolic Syndrome Response Code:: Not instructed Sedentary Sedentary Response Code:: Not instructed Stress Stress Response Code:: Not instructed
--- NOTE | 2019-06-14 12:15 | NURSING ---
Bertha life flight at bedside preparing patient for transport to [facility]. This RN assisted with transfer, gave report to Bertha RN and [facility] RN over phone.
--- NOTE | 2019-06-14 13:13 | NURSING ---
KCL bolus and PRBC's hanging when Bertha was ready to leave. Both infusions continued by Bertha en rout to [facility].
== END 2019-06-14 13:00 | disposition short-term general hospital (02) | DRG 270 ==
LOC: ED 19:07 → ICU 19:23
PROVIDERS: Admitting Provider Hospitalist; Emergency Provider Emergency Medicine; Family Provider Family Medicine; PCP Family Medicine; Referring Provider Internal Medicine Cardiovascular Disease; Visit Provider Hospitalist
DX: I21.09 ST elevation (STEMI) myocardial infarction involving other coronary artery of anterior wall (principal); R57.0 Cardiogenic shock; J96.01 Acute respiratory failure with hypoxia; I31.3 Pericardial effusion (noninflammatory); I50.20 Unspecified systolic (congestive) heart failure; I11.0 Hypertensive heart disease with heart failure; I25.10 Atherosclerotic heart disease of native coronary artery without angina pectoris; E78.5 Hyperlipidemia, unspecified; Z85.3 Personal history of malignant neoplasm of breast; Z90.10 Acquired absence of unspecified breast and nipple; Z79.82 Long term (current) use of aspirin; Z79.899 Other long term (current) drug therapy; Z79.1 Long term (current) use of non-steroidal anti-inflammatories (NSAID); Z87.891 Personal history of nicotine dependence; M48.00 Spinal stenosis, site unspecified; K58.9 Irritable bowel syndrome, unspecified
CPT/HCPCS: 33967; 36415; 71045; 71046; 80048; 80053; 80061; 82803; 84443; 84484; 85025; 85027; 85347; 85610; 85652; 85730; 86850; 86900; 86901; 86920; 86922; 92941; 93005; 93306; 93458; 99285; J7030; J7050; P9016; Q9957; Q9967; A4216; C1725; C1757; C1769; C1874; C1887; C8929; C9606; J2405

== ENCOUNTER → 2019-06-22 | Outpatient (CLI) | payer MEDICARE, SELFPAY ==
[2019-06-13 21:36] VITALS: BMI 29.0
[2019-06-14 10:04] VITALS: BMI 28.0
[2019-06-22 14:40] LABS: Hematocrit 31.6 % (37-47); Hemoglobin 9.8 g/dL (12.0-15.0); Mean Corpuscular Hgb 31.5 pg (27.0-32.0); Mean Corpuscular Volume 101.6 fL (81-99); Mean Platelet Vol. 10.1 fl (6.2-12.0); Platelet Count 244 K/mm3 (150-450); RBC Distribution Width CV 15.3 % (11.6-14.6); Red Blood Count 3.11 M/mm3 (4.2-5.4); White Blood Count 7.5 K/mm3 (4.4-11.0)
[2019-06-22 15:00] LABS: Anion Gap 8 (5-15); BUN 22 mg/dL (7-18); BUN/Creat Ratio 14.1 RATIO (10-20); Calcium,Total 8.4 mg/dL (8.5-10.1); Chloride 109 mmol/L (98-107); Creatinine, Serum 1.56 mg/dL (0.55-1.02); EST Glomerular Filtration Rate 34 mL/min (>60); Est Glom Filt Rate - Afr Amer 41 mL/min (>60); Glucose 86 mg/dL (74-106); Potassium 4.3 mmol/L (3.5-5.1); Sodium Level 141 mmol/L (136-145)
== END | disposition home or self-care (01) ==
LOC: LAB 14:10
PROVIDERS: Family Provider Family Medicine; PCP Family Medicine; Referring Provider Internal Medicine Cardiovascular Disease; Visit Provider Internal Medicine Cardiovascular Disease
DX: I25.10 Atherosclerotic heart disease of native coronary artery without angina pectoris (principal); I25.2 Old myocardial infarction; I31.3 Pericardial effusion (noninflammatory); R57.0 Cardiogenic shock; Z95.5 Presence of coronary angioplasty implant and graft; Z98.890 Other specified postprocedural states
CPT/HCPCS: 36415; 80048; 85027

== ENCOUNTER → 2019-07-09 | Outpatient (CLI) | payer MEDICARE, SELFPAY ==
[2019-06-14 10:04] VITALS: BMI 28.0
[2019-06-29 09:38] VITALS: BMI 26.0
--- NOTE | 2019-07-09 13:41 | ECHOD_ITS ---
Reason For Study: Pericardial effusion Procedure This was a 2D Doppler, Color Flow transthoracic echocardiogram. The study was technically difficult. Exam performed in department. Left Ventricle Normal size and thickness. The estimated ejection fraction is 60 %. Stage 1 diastolic dysfunction. No regional wall motion abnormalities noted. Right Ventricle Mildly dilated right ventricle. Normal systolic function. Atria Normal left atrium. Normal right atrium. Normal atrial septum. Mitral Valve The mitral valve is structurally normal. No prolapse or stenosis seen. Tricuspid Valve Normal tricuspid valve. Mild (1+) tricuspid valve insufficiency. Right ventricular systolic pressure estimated to be 38 mmHg. Mild pulmonary hypertension. Aortic Valve Trisinus/trileaflet aortic valve. Pulmonic Valve The pulmonic valve is not well visualized. Great Vessels Normal aortic root. Normal arch. Normal inferior vena cava. Inferior vena cava collapse with sniff. Pericardium/Pleural No pericardial effusion. MMode/2D Measurements & Calculations LVIDd: 4.2 cm IVSd: 0.91 cm Ao root diam: 2.9 cm LVIDs: 2.6 cm LVPWd: 1.1 cm RVDd: 3.7 cm FS: 36.8 % LAV(MOD-bp): 53.5 ml LA A4 area: 19.4 cm2 LA dimension(2D): 3.4 cm LAV(MOD-bp) Indexed: 29.4 ml/m2 LAV(MOD-sp2): 44.4 ml LAV(MOD-sp4): 54.2 ml RA A4 area: 16.2 cm2 Doppler Measurements & Calculations MV E max kvng: 103.9 cm/sec Lat Peak E' Kvng: 10.0 cm/sec Med Peak E' Kvng: 6.1 cm/sec MV A max kvng: 62.7 cm/sec E/E' lat: 10.4 E/E' med: 16.9 MV E/A: 1.7 Ao V2 max: 140.3 cm/sec LV V1 max: 100.4 cm/sec PA V2 max: 99.3 cm/sec Ao max P.9 mmHg LV V1 max P.0 mmHg TR max kvng: 275.3 cm/sec TR max P.5 mmHg Interpretation Summary The estimated ejection fraction is 60 %. Stage 1 diastolic dysfunction. Mild (1+) tricuspid valve insufficiency. Right ventricular systolic pressure estimated to be 38 mmHg. Mild pulmonary hypertension. Compared to echo report dated 06/14/2019, LV function has been about the same, pericardial effusion has completely resolved. RVSP is about the same. The study was technically difficult. Contrast injection was performed. Ordering Physician: Evangelista Mc Referring Physician: Evangelista Mc Performed By: Marcy Granados RDCS
== END | disposition home or self-care (01) ==
LOC: CVS 13:40
PROVIDERS: Family Provider Family Medicine; PCP Family Medicine; Referring Provider Internal Medicine Cardiovascular Disease; Visit Provider Internal Medicine Cardiovascular Disease
DX: I25.10 Atherosclerotic heart disease of native coronary artery without angina pectoris (principal); Z98.890 Other specified postprocedural states
CPT/HCPCS: 93306

== ENCOUNTER → 2019-08-02 | Outpatient (CLI) | payer MEDICARE, SELFPAY ==
[2019-06-14 10:04] VITALS: BMI 28.0
[2019-07-23 14:04] VITALS: BMI 26.7
--- NOTE | 2019-08-02 12:07 | CR.ITP_ITS ---
General Information - General Information Admitting Diagnosis: PCI with stent Special Needs: using cane now. - Education/Goals Barriers to Learning: None, Vision Impairment - wears glasses Individual Counseling: Initial Assessment: Abnormal Cholesterol Levels, High Blood Pressure, Overweight/Obesity, Hypertension, Sedentary Lifestyle, Stress, Family History of Heart Disease (under 65 years) Cardiac Rehabilitation Goals: 1. Maintain the individual as the primary focus of care. 2. To improve the patient's quality of life. 3. Identification of cardiac risk factors and provide cardiac risk factor management. 4. Enhance the psychosocial status of the patient. 5. Reconditioning enough to allow the patient to resume customary activities. 6. Control symptoms of cardiac disease Scale for measuring improvement of personal goals: Enter appropriate number in Comments. 2 = Unchanged. 3 = Slightly Better. 4 = Moderate Improvement. 5 = Met my Goal Personal Goals: Initial Assessment: Improve management of stress and emotions, Improve energy level, Participate in home exercise program, Get back to work, or to resume activities faster, Improve knowledge of cardiac disease, Improve muscle strength and endurance, Improve diet and eating habits (eat healthier), Control risk factors (learn risk factor modification) Exercise - Initial Assessment - Visit Date of Eval: 08/02/19 - Stages of Change Stages of Change:: Action - Physician Prescribed Exercise Modalities: Treadmill, Biodyne, Rower, Airdyne, NuStep, SciFit Frequency (days/week): 3x/week for 12 weeks [36 sessions] Duration (Minutes):: 30-35 Intensity: 60-80% age predicted maximum heart rate reserve METs - Progression: 0.5-1.0 MET, RPE 11-14 WEEK: 0.5-1.0 Target Heart Rate:: 90-118 - Hypertension Do any of the following apply?: Yes, Medication, Diet - Intervention Home Exercise/Activity Goal:: Moderate Exercise 30 min/day x 5 days/wk - Education Goals:: Warm-up, RPE NIMISHA Scale, S/S, Safe Exercise, Self-Monitoring - Exercise Program Goals Exercise Program Goals: Aerobic Activity >30 min Nutrition - Initial Assessment - Program Goals Nutrition Program Goals: LDL <70. Total Cholesterol <200. HDL >45. Triglycerides <150. HgbA1C <7%. BMI <25 - Visit Date of Assessment:: 08/02/19 - Stages of Change Stages of Change:: Action - Lipids Total Cholesterol (mg/dL) Goal = less than 200 mg/dL: 107 HDL Cholesterol (mg/dL) Goal = less than 45 mg/dL: 37 LDL Cholesterol (mg/dL) Goal = less than 70 mg/dL: 55 Triglycerides (mg/dL) Goal = less than 150 mg/dL: 77 Lipid Medication: yes - Diabetes Diabetes:: No - Weight Management Height: 5 ft 3 in Weight:: 151 lb Weight Goal (kg):: 135 lb Body Fat %:: 26.7 - Intervention Referral to dietitian:: Yes Referral to Diabetic Clinic:: No Will attend diet classes:: Yes - Education Gave educational materials for:: Healthy eating Tobacco - Initial Assessment - Program Goals Tobacco Program Goals: Complete smoking cessation. Attend education classes. Improve Knowledge Test score - Stage of Change Stages of Change:: Maintenance - Learning Barriers Learning Barriers: Vision - wears glasses, Ready to Learn Total Score:: 17 - Family Support Do you have family support?: Yes - Tobacco Use Tobacco Use: Non-smoker Do you use smokeless tobacco?: No - Intervention Smoking Cessation Referral:: No Individual Education/Counseling:: No Education Schedule Given:: Yes - Education Attended class for:: Treating Heart Disease, How The Heart Works, What it means to have Heart Disease, How Coronary Artery Disease is Diagnosed, Heart Procedures, What Heart Medications Do, Risk Factors & Modifications, Living an Active Life, Nutrition, Emotions & Heart Disease, Stress Management & Relaxation, Sleep Disorders & Heart Disease Psychosocial - Initial Assess - Target Goals Target Goals: Assess presence or absence of depression. Using a valid screening tool, maximizes coping skills. Positive support system - Stages of Change Stages of Change:: Action - Psychosocial Test Tool Used:: HANDS Depression Questionnaire Self-reported stress:: yes Tests Completed: SF - 36 survey completed, Mood Scale Test - 20 score- MD aware of anxiety,depression. Also on meds. Counselling info given. Total Mood Screening Score:: 20 Self-Efficacy Score:: 4 - Intervention PS - Interventions: Yes Referral to Physician, Yes Attend Stress Management Classes, Yes Uses Stress Management Skills, No Referral to Mental Health, No Referral to [facility] Case Management - Education Gave educational materials for:: Coping techniques, Signs & symptoms of depression, Stress management, Relaxation techniques - Patient/Program Goal Preventative Medication(s):: Aspirin, BRENDON inhibitor, Clopidogrel, Beta tee, Statin/lipid - Assistive Devices Assistive Devices:: Cane Fall Risk Assessed:: Yes Patient Health Questionnaire Initial Assessment 1. Little interest or pleasure in doing things: Nearly every day 2. Feeling down, depressed, or hopeless: More than half the days 3. Trouble falling or staying asleep, or sleeping too much: Nearly every day 4. Feeling tired or having little energy: Nearly every day 5. Poor appetite or overeating: More than half the days 6. Feeling bad about yourself -- or that you are a failure or have let yourself or your family down: More than half the days 7. Trouble concentrating on things, such as reading the newspaper or watching television: More than half the days 8. Moving or speaking so slowly that other people could have noticed. Or the opposite - being so fidgety or restless that you have been moving around a lot more than usual: Nearly every day 9. Thoughts that you would be better off , or of hurting yourself in some way: Not at all How difficult have these problems made it for you to do your work, take care of things at home, or get along with other people?: Not difficult at all Total Score: 20 FRANDY-Q SV Test - Statements CAD is a disease of the arteries in the heart: False Examples of risk factors for heart disease: True Angina is chest pain or discomfort: True The benefits of resistance training include: I Don't Know Eating more meat and dairy products: False Anti-platelet medications such as aspirin are important: True The only effective way to manage stress: False An exercise warm-up slowly increases heart rate: True Prepared, processed foods usually have high sodium: True Depression is common after a heart attack: True The statin medications lower cholesterol: True To control blood pressure, lower the amount of sodium: True If someone gets chest discomfort during walking: False Transfats are partially hydrogenated vegetable oils: True Sleep apnea that is not treated increases the risk: I Don't Know To control cholesterol, one should become a vegetarian: False Someone knows if he/she is exercising at the right level: True Diabetes cannot be prevented with exercise & health eating: I Don't Know Stress is a large risk for heart attack: True A diet that can help lower blood pressure is rich in: True - Total Score Total Correct Responses: 17 Self-Efficacy Initial Assessment We would like to know how confident you are in doing certain activities. Please select your confidence level for:: Select your confidence level for the followin g using the scale 1-10 where 1 is not at all confident and 10 is totally confident. Your score is the average of all 6 responses. Fatigue: How confident are you that you can keep the fatigue caused by your disease from interfering with the things you want to do? Select Number: 5 Physical Discomfort or Pain: How confident are you that you can keep the physical discomfort or pain of your disease from interfering with the things you want to do? Select Number: 5 Emotional Distress: How confident are you that you can keep the emotional distress caused by your disease from interfering with the things you want to do? Select Number: 5 Other Symptoms or Health Problems: How confident are you that you can keep other symptoms or health problems from interfering with the things you want to do? Select Number: 4 Different Tasks and Activities: How confident are you that you can do the different tasks and activities needed to manage your health condition so as to reduce your need to see a doctor? Select Number: 5 Medication: How confident are you that you can do things other than just taking medication to reduce how much your illness affects your everyday life? Select Number: 5 Total Score:: 4 Nutrition Survey - Nutrition Survey Instructions Scoring Instructions: Scoring is as follows: Yes = 1 points. No = 0 point. Patient score that is >/=12 is considered to be at potential nutritional risk and could benefit from a referral to a registered dietitian. - Nutrition Survey Initial Have you lost >10 lbs over the past 2 months without trying?: No Are you following a special diet at home for diabetes, low fat, or low salt?: No Are you interested in meeting with a dietitian for help understanding your d iet?: No Do you eat less than 3 meals a day?: Yes Do you eat fatty meats (ruelas, sausage, ribs, etc), fried foods, desserts, large amounts of salad dressings, margarine, butter, or cheese most days?: No Do you have food allergies? [Enter types in comment field]: No Do you eat in restaurants more than 3 times a week?: No Do you season food with salt, seasoning salt, or garlic salt?: No Do you used canned, boxed, frozen meals, or soups, seasoning packets?: Yes Total Score:: 2
--- NOTE | 2019-08-02 12:07 | PCM.CR.HP2 ---
CR - History & Physical - General Arrival date:: 08/02/19 Arrival time:: 12:08 Date of Referral:: 06/14/19 Date of CR Evaluation:: 08/02/19 Referring Physician: Dr. Evangelista Mc Primary Diagnosis: PCI with coronary stent - History of Present Cardiac Event Onset Date: Enter Onset Date of cardiac illnesses in Comment field below Current stable Angina Pectoris:: No Acute Myocardial Infarction within 12 months:: Yes - 06/14/19 Coronary Artery Bypass Graft:: No Heart valve replacement or repair:: No PTCA or coronary stenting:: Yes - 06/14/19 Heart or Heart-Lung Transplant:: No Heart Failure EF <35%:: No Type of Symptoms:: chest pain Interventions with present event:: PCI with stent, transferred to [facility] Were there any complications?: Pericardial effusion - Medications Home Medications: Ambulatory Orders Medication Instructions Recorded Pregabalin [Lyrica] 50 mg PO DAILY 06/13/19 citalopram 20 mg tablet 20 mg PO DAILY 06/20/19 clopidogrel 75 mg tablet 75 mg PO DAILY 06/20/19 ranitidine 75 mg tablet 75 mg PO DAILY 06/20/19 aspirin 81 mg tablet,delayed 81 mg PO DAILY #30 tab 06/22/19 release hydrocodone 5 mg-acetaminophen 325 1 tab PO Q8H PRN tab 06/22/19 mg tablet furosemide 40 mg tablet 20 mg PO DAILY tab 06/29/19 meloxicam 15 mg tablet 15 mg PO DAILY 06/29/19 gemfibrozil 600 mg tablet 600 mg PO DAILY tab 07/23/19 metoprolol succinate ER 50 mg 50 mg PO BID #180 tab 07/23/19 tablet,extended release 24 hr - Allergies Allergies/Adverse Reactions: Allergies Sulfa (Sulfonamide Antibiotics) Allergy (Verified 07/18/19 20:33) Itching soap Adverse Reaction (Intermediate, Verified 07/18/19 20:33) Pre-operative: Itching gabapentin [From Neurontin] Adverse Reaction (Verified 07/18/19 20:33) Nausea - Sleep Disorder Evaluation Hx of Sleep Apnea: No Do you snore loudly (louder than talking or can be heard through closed doors)?: Yes Do you often feel tired/ fatigued/ sleepy during daytime?: Yes Has anyone observed you stop breathing during sleep?: No History of Hypertension (for STOP score): Yes STOP Results: Positive Advanced Directives - Advanced Directives Power of Animal Science Instructor: Yes Living Will: Yes Advance Directives Information Provided: Yes Advance Directives on File: No - Pt to bring in copy Past Medical History - Past Medical Illness Medical History: Past Medical History (Last Reviewed 07/18/19 @ 20:33 by Tesha Kingsley) Pericardial effusion without cardiac tamponade (Resolved) Onset Date: 06/14/19 I31.3 History of acute anterior wall myocardial infarction (Chronic) Onset Date: 06/13/19 I25.2 Shock, cardiogenic (Resolved) Onset Date: 06/13/19 R57.0 Acute IN, anterior wall, initial episode of care (Resolved) I21.09 - Past Surgical History Surgical History: Past Surgical History (Last Reviewed 07/18/19 @ 20:33 by Tesha Kingsley) Status post pericardiocentesis (Chronic) Onset Date: 06/14/19 Z98.890 Stented coronary artery (Chronic) Onset Date: 06/14/19 Z95.5 Segmented LV systolic dysfunction- Moderate; LVEF: by LV gram 50 %; Elevated Left Ventricular End Diastolic Pressure; 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 Successful emergent IABP for cardiogenic shock and hypoxia. Surgical History: hysterectomy, mastectomy Social History - Smoking History Smoking Status: Never smoker Hx Tobacco Use: No Hx Smoking Exposure: No - Alcohol Use Alcohol Usage: Yes - wine, 6 oz daily if avail in the home. - Substance Abuse Hx Substance Use: No - Occupation Occupation (List type of work in comments):: Retired - Hobbies, Recreation, Social Activities Hobbies: Reading, Other - computer, active in [employer]. Recreational Activities: I am able to engage in all my recreational activities Social Environment - Status Marital Status: - Current Living Arrangements Living Environment:: Family - daughter, Spouse - Children How many children do you have?: 3 Do any of your children live nearby?: Yes - Safety Do you feel safe in your surroundings?: Yes - Assistance Do you need any assistance at home?: no Review of Systems - Review of Systems Hints: Right click = Denies (Slash). Left click = Reports (Enola) Review of Present Symptoms: Reports: PVD - left leg with ambulation problems after back surgery., Dizziness/Lightheadedness - one time, meds were changed., Fatigue, Appetite - Normal - cardiac diet., Appetite - Special Diet - cardiac, Sleep - Normal. Denies: Shortness of Breath at Rest, Shortness of Breath with Exertion, Operative Discomfort, Angina, Wound Healing, Heart Arrhythmia/Irregularities, Sexual Changes - Pain Is Patient Pain Free?: No Pain Location: back, lower extremity - takes pain pills Pain Level: 5/10 Previous experience dealing with pain?: takes pain meds, gets caudal shots twice a year Risk Factor Assessment - Chief Complaint Chief Complaint: S/P PCI with stents. - Vital Signs Pulse Ox: 95 - Pulse Pulse Rate: 57 Pulse Rhythm: Regular - Hypertension Blood Pressure Sitting - Right Arm: 106/70 - Stress Stress: Home/Family - Blood Cholesterol/Lipids Total Cholesterol (mg/dL) Goal = less than 200 mg/dL: 107 HDL Cholesterol (mg/dL) Goal = less than 40 mg/dL: 37 LDL Cholesterol (mg/dL) Goal = less than 70 mg/dL: 55 Triglycerides (mg/dL) Goal = less than 150 mg/dL: 77 - Diabetes Nutrition Referral for Diabetes: No - Obesity Height: 5 ft 3 in Weight:: 150 lb Weight in Pounds: 150.0 lbs Weight Source: Stated by Patient Body Mass Index (BMI): 26.5 Desired Body Weight: 135 Realistic Weight Goal (Loss of 1-2 lbs/week): 135 Nutritional Referral for Obesity: Yes - pt request - Physical Inactivity Physical Inactivity: None Exercise Limitations: back and leg pain - Risk Stratification Risk Guidelines: Lowest Risk: Risk Factor for Smoking, Risk Factor for Diabetes, Risk Factor for Hypertension, Moderate Risk: Risk Factor for Dyslipidemia, Risk Factor for Obesity, Risk Factor for Sedentary Lifestyle, Risk Factor for Depression - For Smoking Smoking Risk Guidelines: Smoking Low Risk: None or quit greater than 6 months ago. Smoking Moderate Risk: Smoker or quit 6 months or less ago. Smoking High Risk: Smoker - For Dyslipidemia Dyslipidemia Risk Guidelines: Low Risk: Moderate Risk: High Risk: 15-25% fat 25.1-29% fat >/= 30% fat. <7% sat fat 7-9% sat fat >9% sat fat. <150 mg chol 150-299 mg chol >/= 300 mg chol. LDL <100 LDL 100-129 LDL >/= 130. Chol/HDL ratio <5.0 Chol/HDL ratio 5.0-6.0 Chol/HDL ratio >6.0. Triglycerides <100 Triglycerides 100-149 Triglycerides >/= 150 - For Diabetes Mellitus Diabetes Risk Guidelines: Diabetes Low Risk: HgA1c <6.5% and/or FBG <120. Diabetes Moderate Risk: HgA1c 6.6-7.9% and/or FBG 120-180. Diabetes High Risk: HgA1c >/= 8% and/or FBG >180 - For Obesity/Overweight Obesity/Overweight Risk Guidelines: Obesity Low Risk: BMI <25.0. Obesity Moderate Risk: BMI 25-29.9. Obesity High Risk: BMI >/= 30.0 - For Hypertension Hypertension Risk Guidelines: Hypertension Low Risk: Systolic <120 and Diastolic <80. Hypertension Moderate Risk: Systolic 120-139 and Diastolic 80-89. Hypertension High Risk: Systolic >/= 140 and Diastolic >/= 90 - For Sedentary Lifestyle Sedentary Lifestyle Risk Guidelines: Sedentary Lifestyle Low Risk: >/= 1,500 kcal/week. Sedentary Lifestyle Moderate Risk: 700-1,499 kcal/week. Sedentary Lifestyle High Risk: < 700 kcal/week - For Depression Depression Risk Guidelines: Depression Low Risk: Not clinically depressed. Depression Moderate Risk: Mildly depressed. Depression High Risk: Clinically depressed Motivation - Motivation to Participate On a scale of 1 to 10, how prepared are you to commit to attending program?: 10
[2019-08-02 13:05] VITALS: BP 106/70; PULSE 57; O2SAT 95; BMI 26.5
== END | disposition home or self-care (01) ==
LOC: CR 12:05
PROVIDERS: Family Provider Family Medicine; PCP Family Medicine; Referring Provider Internal Medicine Cardiovascular Disease; Visit Provider Internal Medicine Cardiovascular Disease
DX: Z95.5 Presence of coronary angioplasty implant and graft (principal)

== ENCOUNTER 2019-08-22 13:00 | Outpatient (RCR) | payer MEDICARE, SELFPAY ==
[2019-06-14 10:04] VITALS: BMI 28.0
[2019-08-02 13:05] VITALS: BMI 26.5
== END 2019-08-23 23:59 ==
LOC: CR 13:00
PROVIDERS: Family Provider Family Medicine; PCP Family Medicine; Referring Provider Internal Medicine Cardiovascular Disease; Visit Provider Internal Medicine Cardiovascular Disease
DX: Z95.5 Presence of coronary angioplasty implant and graft (principal)
CPT/HCPCS: 93798

== ENCOUNTER 2019-09-17 13:00 | Outpatient (RCR) | payer MEDICARE, SELFPAY ==
[2019-06-14 10:04] VITALS: BMI 28.0
[2019-08-02 13:05] VITALS: BMI 26.5
--- NOTE | 2019-08-31 12:00 | PCM.CR.ITP ---
Exercise - 30-day Assessment - Visit Date of Eval: 08/31/19 Session #:: 10 - has missed 1 session - Stages of Change Stages of Change:: Action - Physician Prescribed Exercise Modalities: Airdyne, NuStep, SciFit Frequency (days/week): 3 Duration (Minutes):: 30-45 Intensity: 60-80% age predicted maximum heart rate reserve METs - Progression: 0.5-1.0 MET, RPE 11-14 WEEK: 3 Target Heart Rate:: 90-118 w max hr 104 - Hypertension Resting Blood Pressure:: 102/64 Peak Exercise Blood Pressure:: 124/78 Medication Changes:: No - Intervention Home Exercise/Activity Goal:: Sitting Time <3 hrs/day - Education Goals:: Warm-up, RPE NIMISHA Scale, S/S, Safe Exercise, Self-Monitoring - Exercise Program Goals Exercise Program Goals: Aerobic Activity >30 min Nutrition - 30-Day Assessment - Program Goals Nutrition Program Goals: LDL <70. Total Cholesterol <200. HDL >45. Triglycerides <150. HgbA1C <7%. BMI <25 - Visit Date of Eval: 08/31/19 - Stages of Change Stages of Change:: Action - Lipids Has the patient seen the dietitian?: No - Diabetes Diabetes:: No Insulin: No Non-Insulin Dependent?: No - Weight Management Weight:: 150 lb 8 oz - down 3.5 pounds - Intervention Referral to dietitian:: No Referral to Diabetic Clinic:: No Will attend diet classes:: Yes - Education Attended class for:: Healthy eating Tobacco - Initial Assessment - Program Goals Tobacco Program Goals: Complete smoking cessation. Attend education classes. Improve Knowledge Test score - Learning Barriers Learning Barriers: Vision - wears glasses, Ready to Learn Tobacco - 30-Day Assessment - Program Goals Tobacco Program Goals: Complete smoking cessation. Attend education classes. Improve Knowledge Test score - Stage of Change Stages of Change:: Action - Learning Barriers Learning Barriers: Participates in education - Family Support Do you have family support?: Yes - Tobacco Use Tobacco Use: Non-smoker Do you use smokeless tobacco?: No - Intervention Smoking Cessation Referral:: No Individual Education/Counseling:: No Education Schedule Given:: Yes - Education Attended class for:: Treating Heart Disease, Emotions & Heart Disease, Stress Management & Relaxation, Sleep Disorders & Heart Disease Psychosocial - Initial Assess - Target Goals Target Goals: Assess presence or absence of depression. Using a valid screening tool, maximizes coping skills. Positive support system - Psychosocial Test Tool Used:: HANDS Depression Questionnaire - Assistive Devices Fall Risk Assessed:: Yes Psychosocial - 30-Day Assess - Target Goals Target Goals: Assess presence or absence of depression. Using a valid screening tool, maximizes coping skills. Positive support system - Stages of Change Stages of Change:: Action - Psychosocial Test Tool Used:: HANDS Depression Questionnaire - Intervention PS - Interventions: Yes Attend Stress Management Classes, Yes Uses Stress Management Skills, No Referral to Mental Health, No Referral to [facility] Case Management, No Referral to Physician - Education Attended classes for:: Coping techniques, Signs & symptoms of depression, Stress management - Patient/Program Goal Preventative Medication(s):: Aspirin, BRENDON inhibitor, Clopidogrel, Beta tee, Statin/lipid - patient is compliant with medications - Assistive Devices Assistive Devices:: Cane Fall Risk Assessed:: Yes - does not use treadmill due to fall risk. Patient Health Questionnaire 30-Day Re-eval Assessment 1. Little interest or pleasure in doing things: Nearly every day 2. Feeling down, depressed, or hopeless: More than half the days 3. Trouble falling or staying asleep, or sleeping too much: More than half the days 4. Feeling tired or having little energy: More than half the days 5. Poor appetite or overeating: Several days 6. Feeling bad about yourself -- or that you are a failure or have let yourself or your family down: Several days 7. Trouble concentrating on things, such as reading the newspaper or watching television: Several days 8. Moving or speaking so slowly that other people could have noticed. Or the opposite - being so fidgety or restless that you have been moving around a lot more than usual: Nearly every day 9. Thoughts that you would be better off , or of hurting yourself in some way: Not at all How difficult have these problems made it for you to do your work, take care of things at home, or get along with other people?: Not difficult at all Total Score: 15 Self-Efficacy 30-Day Re-eval Assessment We would like to know how confident you are in doing certain activities. Please select your confidence level for:: Select your confidence level for the following using the scale 1-10 where 1 is not at all confident and 10 is totally confident. Your score is the average of all 6 responses. Fatigue: How confident are you that you can keep the fatigue caused by your disease from interfering with the things you want to do? Select Number: 6 Physical Discomfort or Pain: How confident are you that you can keep the physical discomfort or pain of your disease from interfering with the things you want to do? Select Number: 6 Emotional Distress: How confident are you that you can keep the emotional distress caused by your disease from interfering with the things you want to do? Select Number: 6 Other Symptoms or Health Problems: How confident are you that you can keep other symptoms or health problems from interfering with the things you want to do? Select Number: 5 Different Tasks and Activities: How confident are you that you can do the different tasks and activities needed to manage your health condition so as to reduce your need to see a doctor? Select Number: 6 Medication: How confident are you that you can do things other than just taking medication to reduce how much your illness affects your everyday life? Select Number: 6 Total Score:: 5
[2019-08-31 12:04] VITALS: BP 102/64; BP 124/78
== END 2019-09-22 23:59 ==
LOC: CR 13:00
PROVIDERS: Family Provider Family Medicine; PCP Family Medicine; Referring Provider Internal Medicine Cardiovascular Disease; Visit Provider Internal Medicine Cardiovascular Disease
DX: Z95.5 Presence of coronary angioplasty implant and graft (principal); I21.09 ST elevation (STEMI) myocardial infarction involving other coronary artery of anterior wall; R57.0 Cardiogenic shock; I25.10 Atherosclerotic heart disease of native coronary artery without angina pectoris
CPT/HCPCS: 93798

== ENCOUNTER → 2019-09-26 14:06 | Outpatient (CLI) | payer MEDICARE, SELFPAY ==
[2019-06-14 10:04] VITALS: BMI 28.0
[2019-08-02 13:05] VITALS: BMI 26.5
[2019-09-26 16:16] LABS: Absolute Lymphocyte Count 1.68 X10^3/uL (0.83-4.51); Absolute Neutrophil Count 3.6 X10^3/uL (2.0-7.7); Basophil# 0.02 X10^3/uL; Basophil% 0.3 % (0-1); Eosinophil# 0.14 X10^3/uL; Eosinophils% 2.3 % (0-5); Hematocrit 35.2 % (37-47); Hemoglobin 11.1 g/dL (12.0-15.0); Lymphocyte # 1.68 X10^3/ul (4.0); Mean Corp Hgb Conc 31.5 g/dL (32-36); Mean Corpuscular Hgb 31.7 pg (27.0-32.0); Mean Corpuscular Volume 100.6 fL (81-99); Mean Platelet Vol. 11.6 fl (6.2-12.0); Monocyte# 0.56 X10^3/uL; Monocyte% 9.3 % (0-10); NRBC Flagged by Analyzer 0 % (0-5); Neutrophil # 3.58 X10^3/uL (2.7-7.7); Neutrophil % 59.9 % (47-70); Platelet Count 165 K/mm3 (150-450); RBC Distribution Width CV 12.7 % (11.6-14.6); RBC Distribution Width SD 46.6 fl (35.1-43.9)
[2019-09-26 16:48] LABS: Anion Gap 7 (5-15); BUN 48 mg/dL (7-18); BUN/Creat Ratio 15.8 RATIO (10-20); Calcium,Total 8.7 mg/dL (8.5-10.1); Chloride 100 mmol/L (98-107); Creatinine, Serum 3.04 mg/dL (0.55-1.02); EST Glomerular Filtration Rate 16 mL/min (>60); Est Glom Filt Rate - Afr Amer 19 mL/min (>60); Glucose 70 mg/dL (74-106); Potassium 4.3 mmol/L (3.5-5.1); Sodium Level 137 mmol/L (136-145); T4 Free Direct 0.92 ng/dL (0.76-1.46); Thyroid Stim Hormone (TSH) 2.16 uIU/mL (0.358-3.74)
== END ==
PROVIDERS: Family Provider Family Medicine; PCP Family Medicine; Referring Provider Nurse Practitioner Family; Visit Provider Nurse Practitioner Family
DX: I10 Essential (primary) hypertension (principal); I25.10 Atherosclerotic heart disease of native coronary artery without angina pectoris; R53.83 Other fatigue; R57.0 Cardiogenic shock; Z95.5 Presence of coronary angioplasty implant and graft
CPT/HCPCS: 36415; 80048; 84439; 84443; 85025; 93798

== ENCOUNTER 2019-10-12 13:00 | Outpatient (RCR) | payer MEDICARE, SELFPAY ==
[2019-06-14 10:04] VITALS: BMI 28.0
[2019-08-02 13:05] VITALS: BMI 26.5
[2019-09-23 01:02] VITALS: BP 102/64; BP 124/78
--- NOTE | 2019-10-01 08:42 | CR.ITP_ITS ---
General Information - General Information Admitting Diagnosis: PCI with stent - Education/Goals Barriers to Learning: None Cardiac Rehabilitation Goals: 1. Maintain the individual as the primary focus of care. 2. To improve the patient's quality of life. 3. Identification of cardiac risk factors and provide cardiac risk factor management. 4. Enhance the psychosocial status of the patient. 5. Reconditioning enough to allow the patient to resume customary activities. 6. Control symptoms of cardiac disease Scale for measuring improvement of personal goals: Enter appropriate number in Comments. 2 = Unchanged. 3 = Slightly Better. 4 = Moderate Improvement. 5 = Met my Goal Exercise - 60-Day Assessment - Visit Date of Eval: 10/01/19 Session #:: 19 - Stages of Change Stages of Change:: Action - Physician Prescribed Exercise Modalities: Treadmill, Airdyne, SciFit Duration (Minutes):: 30-45 Intensity: 60-80% age predicted maximum heart rate reserve METs - Progression: 0.5-1.0 MET, RPE 11-14 WEEK: 3 Target Heart Rate:: 90-118 Max HR 100 - Hypertension Resting Blood Pressure:: 112/74 Peak Exercise Blood Pressure:: 142/80 - Intervention Home Exercise/Activity Goal:: Sitting Time <3 hrs/day - Education Goals:: Warm-up, RPE NIMISHA Scale, S/S, Safe Exercise, Self-Monitoring - Exercise Program Goals Exercise Program Goals: Aerobic Activity >30 min, B/P <130/80 Nutrition - 60-Day Assessment - Program Goals Nutrition Program Goals: LDL <70. Total Cholesterol <200. HDL >45. Triglycerides <150. HgbA1C <7%. BMI <25 - Visit Date of Eval: 10/01/19 - Stages of Change Stages of Change:: Action - Lipids Has the patient seen the dietitian?: No - Diabetes Diabetes:: No - Weight Management Weight:: 68.946 kg - Intervention Referral to dietitian:: No Referral to Diabetic Clinic:: No Will attend diet classes:: Yes - Education Attended class for:: Signs & symptoms of hypoglycemia, Signs & symptoms of hyperglycemia, Relate diabetes to coronary artery disease, Healthy eating Tobacco - Initial Assessment - Program Goals Tobacco Program Goals: Complete smoking cessation. Attend education classes. Improve Knowledge Test score - Learning Barriers Learning Barriers: Vision - wears glasses, Ready to Learn Tobacco - 60-Day Assessment - Program Goals Tobacco Program Goals: Complete smoking cessation. Attend education classes. Improve Knowledge Test score - Stage of Change Stages of Change:: Action - Learning Barriers Learning Barriers: Participates in education - Family Support Do you have family support?: Yes - Tobacco Use Tobacco Use: Non-smoker Do you use smokeless tobacco?: No - Intervention Smoking Cessation Referral:: No Individual Education/Counseling:: No Education Schedule Given:: Yes - Education Attended class for:: Treating Heart Disease, How The Heart Works, What it means to have Heart Disease, How Coronary Artery Disease is Diagnosed, Heart Procedures, Emotions & Heart Disease, Stress Management & Relaxation, Sleep Disorders & Heart Disease Psychosocial - Initial Assess - Target Goals Target Goals: Assess presence or absence of depression. Using a valid screening tool, maximizes coping skills. Positive support system - Psychosocial Test Tool Used:: HANDS Depression Questionnaire - Assistive Devices Fall Risk Assessed:: Yes Psychosocial - 60-Day Assess - Target Goals Target Goals: Assess presence or absence of depression. Using a valid screening tool, maximizes coping skills. Positive support system - Stages of Change Stages of Change:: Action - Psychosocial Test Tool Used:: HANDS Depression Questionnaire - Intervention PS - Interventions: Yes Attend Stress Management Classes, Yes Uses Stress Management Skills, No Referral to Mental Health, No Referral to [facility] Case Management, No Referral to Physician - Education Attended classes for:: Coping techniques, Signs & symptoms of depression, Stress management, Relaxation techniques - Assistive Devices Assistive Devices:: Cane Fall Risk Assessed:: Yes - no treadmill due to fall risk Patient Health Questionnaire 60-Day Re-eval Assessment 1. Little interest or pleasure in doing things: Nearly every day 2. Feeling down, depressed, or hopeless: More than half the days 3. Trouble falling or staying asleep, or sleeping too much: More than half the days 4. Feeling tired or having little energy: More than half the days 5. Poor appetite or overeating: Several days 6. Feeling bad about yourself -- or that you are a failure or have let yourself or your family down: Several days 7. Trouble concentrating on things, such as reading the newspaper or watching television: Several days 8. Moving or speaking so slowly that other people could have noticed. Or the o pposite - being so fidgety or restless that you have been moving around a lot more than usual: Nearly every day 9. Thoughts that you would be better off , or of hurting yourself in some way: Not at all How difficult have these problems made it for you to do your work, take care of things at home, or get along with other people?: Not difficult at all Total Score: 15 Self-Efficacy 60-Day Re-eval Assessment We would like to know how confident you are in doing certain activities. Please select your confidence level for:: Select your confidence level for the following using the scale 1-10 where 1 is not at all confident and 10 is totally confident. Your score is the average of all 6 responses. Fatigue: How confident are you that you can keep the fatigue caused by your disease from interfering with the things you want to do? Select Number: 6 Physical Discomfort or Pain: How confident are you that you can keep the physical discomfort or pain of your disease from interfering with the things you want to do? Select Number: 6 Emotional Distress: How confident are you that you can keep the emotional distress caused by your disease from interfering with the things you want to do? Select Number: 6 Other Symptoms or Health Problems: How confident are you that you can keep other symptoms or health problems from interfering with the things you want to do? Select Number: 5 Different Tasks and Activities: How confident are you that you can do the different tasks and activities needed to manage your health condition so as to reduce your need to see a doctor? Select Number: 6 Medication: How confident are you that you can do things other than just taking medication to reduce how much your illness affects your everyday life? Select Number: 6 Total Score:: 5
[2019-10-01 08:50] VITALS: BP 112/74; BP 142/80
== END 2019-10-23 23:59 ==
LOC: CR 13:00
PROVIDERS: Family Provider Family Medicine; PCP Family Medicine; Referring Provider Internal Medicine Cardiovascular Disease; Visit Provider Internal Medicine Cardiovascular Disease
DX: I21.09 ST elevation (STEMI) myocardial infarction involving other coronary artery of anterior wall (principal); Z95.5 Presence of coronary angioplasty implant and graft; R57.0 Cardiogenic shock; I25.10 Atherosclerotic heart disease of native coronary artery without angina pectoris
CPT/HCPCS: 93798

== ENCOUNTER → 2019-10-29 14:48 | Outpatient (CLI) | payer MEDICARE, SELFPAY ==
[2019-06-14 10:04] VITALS: BMI 28.0
[2019-08-02 13:05] VITALS: BMI 26.5
[2019-10-29 18:16] LABS: Anion Gap 7 (5-15); BUN 34 mg/dL (7-18); BUN/Creat Ratio 12.4 RATIO (10-20); Calcium,Total 8.8 mg/dL (8.5-10.1); Chloride 106 mmol/L (98-107); Creatinine, Serum 2.75 mg/dL (0.55-1.02); EST Glomerular Filtration Rate 18 mL/min (>60); Est Glom Filt Rate - Afr Amer 21 mL/min (>60); Glucose 110 mg/dL (74-106); Potassium 3.9 mmol/L (3.5-5.1); Sodium Level 143 mmol/L (136-145)
== END ==
PROVIDERS: Family Provider Family Medicine; PCP Family Medicine; Visit Provider Family Medicine
DX: I10 Essential (primary) hypertension (principal)
CPT/HCPCS: 36415; 80048

== ENCOUNTER → 2019-11-29 | Outpatient (CLI) | payer MEDICARE, SELFPAY ==
[2019-06-14 10:04] VITALS: BMI 28.0
[2019-11-29 14:53] VITALS: BMI 25.7
[2019-11-29 16:18] LABS: Absolute Neutrophil Count 3.8 X10^3/uL (2.0-7.7); Basophil# 0.02 X10^3/uL; Basophil% 0.3 % (0-1); Eosinophil# 0.08 X10^3/uL; Eosinophils% 1.3 % (0-5); Hematocrit 37.6 % (37-47); Hemoglobin 11.8 g/dL (12.0-15.0); Lymphocyte % 26.6 % (19-41); Mean Corp Hgb Conc 31.4 g/dL (32-36); Mean Corpuscular Hgb 31.1 pg (27.0-32.0); Mean Corpuscular Volume 98.9 fL (81-99); Mean Platelet Vol. 11.4 fl (6.2-12.0); Monocyte# 0.55 X10^3/uL; Monocyte% 9.2 % (0-10); NRBC Flagged by Analyzer 0 % (0-5); Neutrophil # 3.75 X10^3/uL (2.7-7.7); Neutrophil % 62.4 % (47-70); Platelet Count 177 K/mm3 (150-450); RBC Distribution Width SD 51.4 fl (35.1-43.9)
[2019-11-29 18:33] LABS: AST(SGOT) 16 U/L (15-37); Alanine Aminotransfer ALT/SGPT 20 U/L (13-56); Albumin, Serum 3.7 g/dL (3.2-5.0); Alkaline Phosphatase 69 U/L (45-117); Anion Gap 6 (5-15); BUN 41 mg/dL (7-18); BUN/Creat Ratio 16.1 RATIO (10-20); Bilirubin, Direct 0.12 mg/dL (0.00-0.30); Calcium,Total 9.1 mg/dL (8.5-10.1); Chloride 105 mmol/L (98-107); Creatinine, Serum 2.55 mg/dL (0.55-1.02); EST Glomerular Filtration Rate 19 mL/min (>60); Est Glom Filt Rate - Afr Amer 23 mL/min (>60); Globulin 3.9 g/dL (2.2-4.2); Glucose 99 mg/dL (74-106); Potassium 4.6 mmol/L (3.5-5.1); Protein, Total 7.6 g/dL (6.4-8.2); Sodium Level 138 mmol/L (136-145)
== END | disposition home or self-care (01) ==
LOC: LAB 15:33
PROVIDERS: PCP Family Medicine; Referring Provider Internal Medicine Cardiovascular Disease; Visit Provider Internal Medicine Cardiovascular Disease
DX: I31.3 Pericardial effusion (noninflammatory) (principal); E78.00 Pure hypercholesterolemia, unspecified; I10 Essential (primary) hypertension
CPT/HCPCS: 36415; 80048; 80076; 85025

== ENCOUNTER → 2019-12-27 | Outpatient (CLI) | payer MEDICARE, SELFPAY ==
[2019-06-14 10:04] VITALS: BMI 28.0
[2019-11-29 14:53] VITALS: BMI 25.7
--- NOTE | 2019-12-27 13:37 | ECHOCS_ITS ---
Reason For Study: PERICARDIAL EFFUSION Procedure This was a 2D Doppler, Color Flow transthoracic echocardiogram. Exam performed in department. Left Ventricle Normal size and thickness. The estimated ejection fraction is 65 %. Stage 1 diastolic dysfunction. Anterior [place] : Akinetic. Right Ventricle Normal size and thickness. Normal systolic function. Atria Normal left atrium. Normal right atrium. Normal atrial septum. Mitral Valve The mitral valve is structurally normal. No prolapse or stenosis seen. Tricuspid Valve Normal tricuspid valve. Trivial tricuspid valve insufficiency. Right ventricular systolic pressure estimated to be 39 mmHg. Mild pulmonary hypertension. Aortic Valve Trisinus/trileaflet aortic valve. Mild diffuse aortic valve thickening. Pulmonic Valve Normal pulmonic valve. Great Vessels Normal aortic root. Normal arch. Normal inferior vena cava. Inferior vena cava collapse with sniff. Pericardium/Pleural No pericardial effusion. Medication 22 gauge I.V. with prn adaptor inserted into right arm. Diluted definity 7ml given slow IV push to enhance endocardial definition. MMode/2D Measurements & Calculations LVIDd: 4.3 cm IVSd: 0.85 cm Ao root diam: 3.0 cm LVIDs: 2.9 cm LVPWd: 1.0 cm RVDd: 3.0 cm FS: 32.5 % LAV(MOD-bp): 36.0 ml LVAd ap4: 19.9 cm2 SV(MOD-sp4): 32.2 ml LAV(MOD-bp) Indexed: 20.8 ml/m2 EDV(MOD-sp4): 54.9 ml LAV(MOD-sp2): 48.6 ml EDV(sp4-el): 53.7 ml LAV(MOD-sp4): 26.6 ml LVAs ap4: 12.1 cm2 ESV(MOD-sp4): 22.6 ml ESV(sp4-el): 22.0 ml EF(MOD-sp4): 58.8 % EF(sp4-el): 59.1 % SV(sp4-el): 31.7 ml LA A4 area: 12.9 cm2 LA dimension(2D): 3.1 cm RA A4 area: 10.4 cm2 Time Measurements MV dec time: 0.26 sec Doppler Measurements & Calculations MV E max kvng: 72.9 cm/sec Lat Peak E' Kvng: 6.1 cm/sec Med Peak E' Kvng: 5.6 cm/sec MV A max kvng: 79.9 cm/sec E/E' lat: 12.0 E/E' med: 13.0 MV E/A: 0.91 Ao V2 max: 138.4 cm/sec LV V1 max: 85.6 cm/sec PA V2 max: 77.4 cm/sec Ao max P.7 mmHg LV V1 max P.9 mmHg TR max kvng: 292.6 cm/sec TR max P.3 mmHg Interpretation Summary The estimated ejection fraction is 65 %. Stage 1 diastolic dysfunction. Trivial tricuspid valve insufficiency. Right ventricular systolic pressure estimated to be 39 mmHg. Compared to echo report dated 07/09/2019, LV function and pulmonary pressures are about the same, and pericardial effusion has completely resolved. Ordering Physician: Evangelista Mc Referring Physician: HEIDY FRIEND Performed By: Magi Dior RDCS
== END | disposition home or self-care (01) ==
LOC: CVS 13:37
PROVIDERS: PCP Family Medicine; Referring Provider Internal Medicine Cardiovascular Disease; Visit Provider Internal Medicine Cardiovascular Disease
DX: I31.3 Pericardial effusion (noninflammatory) (principal); Z98.890 Other specified postprocedural states
CPT/HCPCS: 93306; Q9957; A4216; C8929

== ENCOUNTER 2020-02-14 10:28 | Inpatient (IN) | payer MEDICARE, SELFPAY ==
[2019-06-14 10:04] VITALS: BMI 28.0
[2019-11-29 14:53] VITALS: BMI 25.7
[2020-02-14] VITALS (12 sets, daily range): BP systolic 137–176; BP diastolic 61–98; PULSE 68–91; RESP 11–24; TEMP 36.7–37.6; O2SAT 88–100; BMI 27.4; BMI 25.7; BMI 25.8
--- NOTE | 2020-02-14 10:48 | EKG12_ITS ---
Test Reason : Blood Pressure : / mmHG Vent. Rate : 083 BPM Atrial Rate : 083 BPM P-R Int : 156 ms QRS Dur : 080 ms QT Int : 388 ms P-R-T Axes : 058 039 067 degrees QTc Int : 455 ms Sinus rhythm with Premature atrial complexes ST & T wave abnormality, consider anterolateral ischemia Abnormal ECG Confirmed by TREVOR MARRUFO, SCAR ([id number]), newspaper managing editor NGUYEN BROWN ([id number] on 02/18/2020 10:13:31 AM Referred By: BEVERLEY Confirmed By:SCAR MURRAY MD
[2020-02-14 11:18] LABS: Absolute Lymphocyte Count 0.26 X10^3/uL (0.83-4.51); Basophil# 0.01 X10^3/uL; Basophil% 0.2 % (0-1); Eosinophil# 0.01 X10^3/uL; Eosinophils% 0.2 % (0-5); Hematocrit 36.7 % (37-47); Hemoglobin 11.6 g/dL (12.0-15.0); Lymphocyte # 0.26 X10^3/ul (4.0); Mean Corp Hgb Conc 31.6 g/dL (32-36); Mean Corpuscular Hgb 31.4 pg (27.0-32.0); Mean Corpuscular Volume 99.5 fL (81-99); Mean Platelet Vol. 10.5 fl (6.2-12.0); Monocyte# 0.28 X10^3/uL; Monocyte% 4.3 % (0-10); NRBC Flagged by Analyzer 0 % (0-5); Neutrophil # 5.95 X10^3/uL (2.7-7.7); POSITIVE DIFFERENTIAL YES; Platelet Count 104 K/mm3 (150-450); RBC Distribution Width CV 13.2 % (11.6-14.6); RBC Distribution Width SD 47.9 fl (35.1-43.9); Red Blood Count 3.69 M/mm3 (4.2-5.4); White Blood Count 6.5 K/mm3 (4.4-11.0)
--- NOTE | 2020-02-14 11:21 | NURSING ---
when pt arrived to the ER she was in a wheelchair, moved the pt from the wheelchair to the bed, pt was steady but slow and weak. when I got the pt in a gown and settled in the bed, with good waveform the pt was saturating at 88-90%. put the pt on 2 liters of oxygen. I then titrated the pt's oxygen to 1 liters and pt was maintaining adequate oxygenation. took the pt of the oxygen and is now still maintaining oxygenation in does not appear to have any signs of SOB at this time.
[2020-02-14 11:25] LABS: Mucous, Urine 0 SEEN /hpf (<or=2+)
[2020-02-14 11:25] LABS: Differential Indicated SCAN CRITERIA MET; Prothrombin Time (Protime)PT. 12.8 SECONDS (11.7-14.9)
--- NOTE | 2020-02-14 11:30 | RAD_ITS ---
STUDY: X-RAY CHEST REASON FOR EXAM: Female, 79 years old. WEAKNESS,NAUSEA,FEVER AND SOB -- HX STEMI, HX Mass on lung WITH surgery, HX BREAST CA TECHNIQUE: Single AP portable view of the chest. COMPARISON: Comparison is made with prior examination dated June 14, 2019. FINDINGS: EKG electrodes are seen. Elevation of the right hemidiaphragm. Increased markings in the left mid lung suggestive of early infiltrate. There is evidence of a 7.8 cm x 8 cm soft tissue density in the left lower lobe. This is unchanged. This most likely represents a large hiatal hernia. There is blunting of the left costophrenic angle. There is borderline cardiomegaly. Normal mediastinum and brigitte. Normal visualized pulmonary arteries. There is atherosclerotic tortuosity of the aortic arch and descending thoracic aorta. There are diffuse degenerative changes of the visualized thoracic spine. Normal visualized ribs, clavicles, and shoulders. There is no demonstrated abnormality of the visualized soft tissue structures of the upper abdomen. RAD/Chest 1 View (Portable) IMPRESSION: New focus of increased markings in the left mid lung suggestive of early infiltrate. Findings suggestive of a moderate to large hiatal hernia. Electronically Signed: Bayron Tucker, at 11:52 EDT , Service support ,
--- NOTE | 2020-02-14 11:30 | ED.RN ---
the pt stated to me that she had a PR in May and her had a stroke in September. She states that she has been taking care of him. The pt states that she has been helping with his care and getting him dressed, ADLS. pt states that she is too weak to help, and didn't feel like helping him last night and states that she is just tired.
[2020-02-14 11:34] LABS: ALB/GLOB Ratio 0.9 RATIO (0.9-2.4); AST(SGOT) 14 U/L (15-37); Alanine Aminotransfer ALT/SGPT 14 U/L (13-56); Albumin, Serum 3.5 g/dL (3.2-5.0); Alkaline Phosphatase 73 U/L (45-117); Anion Gap 9 (5-15); BUN 24 mg/dL (7-18); BUN/Creat Ratio 13.7 RATIO (10-20); Calcium,Total 9.2 mg/dL (8.5-10.1); Chloride 109 mmol/L (98-107); Creatinine, Serum 1.75 mg/dL (0.55-1.02); EST Glomerular Filtration Rate 30 mL/min (>60); Est Glom Filt Rate - Afr Amer 36 mL/min (>60); Estimated Creatinine Clearance 21.77 ml/min; Globulin 3.7 g/dL (2.2-4.2); Glucose 98 mg/dL (74-106); Potassium 3.5 mmol/L (3.5-5.1); Protein, Total 7.2 g/dL (6.4-8.2); Sodium Level 143 mmol/L (136-145)
[2020-02-14 11:35] LABS: Color, Urine Yellow (Yellow); Glucose, Dipstick Normal (Normal); Ketone-Dipstick Negative (Negative); Leukocyte Esterase-Dipstick 100 /ul (Negative); Nitrite-Dipstick Positive (Negative); Occult Blood-Urine 25 /ul (Negative); Protein-Dipstick 30 mg/dl (Negative); Urine Bilirubin Dipstick Negative (Negative); Urine Clarity Sl. Cloudy (Clear); Urine Urobilinogen Normal (Normal)
[2020-02-14 11:41] LABS: Bacteria 2+ /hpf (None Seen); Red Blood Cells-Urine 0-5 SEEN /hpf (0-5); White Blood Cells 10-25 SEEN /hpf (0-5)
[2020-02-14 11:42] LABS: Squamous Epithelial Cells - UA 0-5 SEEN /hpf (5-10)
--- NOTE | 2020-02-14 12:08 | ED.DCSUM_ITS ---
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 She reports that she has weakness that is come on over the course of months. She states that she has had very poor energy as well. She is a poor in formant. She denies sick contacts. She reports that she is in self-isolation and lives with her who has not been ill. She goes to the grocery stores and wears a mask. She has not been out otherwise. Patient denies fever, but has had chills. She denies cough or shortness of breath. She denies abdominal pain. She reports is been nauseated and had dry heaves. She is had one episode of diarrhea today. No blood in her stools or black tarry stools. No dysuria or frequency. She reports she has a headache that is 5-10 in severity. She does have a history of similar headaches. She also complains of generalized weakness. Physical Examination: Vitals: 98.9, 145/76, 87, 19, 88% on room air which is hypoxic. General: Well-nourished and well-developed. Head: Normocephalic atraumatic. Neck: Supple, no lymphadenopathy. No JVD. Nontender. Cardiovascular: Regular rate and rhythm. 2 out of 6 systolic murmur. Respiratory: No respiratory distress. Crackles at the bases bilaterally. Abdominal: Soft, nontender, nondistended, normal bowel sounds. No guarding, rebound, or peritoneal signs. Back: Nontender. Extremities: Nontender, no edema. Skin: Normal color, no rash. Neurologic: Alert and oriented ?3. Cranial nerves II through XII are intact. Normal strength and sensation. Psych: Normal affect. Test Results: EKG is sinus at [address] changes. She has T wave inversions in leads V2 to V5. This is unchanged from June 22, 2019. Initial troponin 0 0.022. Chem-7 shows a chloride of 109, BUN 24, creatinine 1.75. CBC shows an H&H of 11.6 and 36.7, platelets 104, segmented 59 1, etc. 4. Lactic acid is 1.0. UA does show UTI with nitrites, blood, 10-25 white blood cells, 2+ bacteria. LFTs are normal. Coags are normal. Clinical Impression(s) from Imaging Studies Chest X-Ray 02/14/20 11:30 IMPRESSION: New focus of increased markings in the left mid lung suggestive of early infiltrate. Findings suggestive of a moderate to large hiatal hernia. Electronically Signed: Bayron Tucker, at 11:52 EDT , Service support , Emergency Department Course and Treatment: Patient was given dose of Rocephin IV and her urine was sent for culture. Because IV Zithromax is in short supply she was given a dose of Zithromax p.o. Treatment Plan: Patient will be discussed with the hospitalist and admitted for further evaluation and treatment. Disposition: Admitted in improved condition. Impression: 1. UTI. 2. Pneumonia, community-acquired. 3. Hypoxia. This note was generated with [employer] dictation software. It may contain incorrect words, spelling, and punctuation that were not noted in review of the chart prior to signing ED Disposition - Plan for ED Patient: Referrals: Candis Lawler MD [Primary Care Provider] -
[2020-02-14 12:13] LABS: Platelet Estimate SLT DEC (ADEQ); Red Cell Morphology NORM C+C NORMAL (NORM C&C)
[2020-02-14] MEDS: Azithromycin 250 MG Tablet 500 MG PO (12:27)
--- NOTE | 2020-02-14 12:27 | HP.PCM_ITS ---
Problem List (1) Pneumonia Status: Acute Qualifiers: Pneumonia type: due to unspecified organism Laterality: unspecified laterality Lung location: unspecified part of lung Qualified Code(s): J18.9 - Pneumonia, unspecified organism (2) UTI (urinary tract infection) Status: Acute Qualifiers: Urinary tract infection type: site unspecified (3) HLD (hyperlipidemia) Status: Chronic Qualifiers: Hyperlipidemia type: unspecified Qualified Code(s): E78.5 - Hyperlipidemia, unspecified (4) Anxiety and depression Status: Chronic (5) Pericardial effusion without cardiac tamponade Status: Resolved (6) History of acute anterior wall myocardial infarction Status: Chronic (7) Atherosclerosis of coronary artery of [place] heart without angina pectoris Status: Chronic Qualifiers: Coronary Disease-Associated Artery/Lesion type: [place] artery Qualified Code(s): I25.10 - Atherosclerotic heart disease of [place] coronary artery without angina pectoris Comment: Segmented LV systolic dysfunction- Moderate LVEF: by LV gram 50 % Elevated Left Ventricular End Diastolic Pressure Single vessel CAD of the MID LAD Non obstructive coronary arteries Successful PTCA/LUTHER Mid LAD with thrombectome, utilizing a 2.25 x 32 Promus Synergy, followed immediately distally with a 2.25 x 8 Promus Synergy x 2, followed immediately upstream from initial stent with a 2.5 x 32 Promus Synergy; 100%-->0%, no dissection. Successful emergent IABP for cardiogenic shock and hypoxia. (8) Spinal stenosis Status: Chronic Qualifiers: Spinal region: unspecified Qualified Code(s): M48.00 - Spinal stenosis, site unspecified (9) IBS (irritable bowel syndrome) Status: Chronic Qualifiers: Irritable bowel syndrome type: unspecified Qualified Code(s): K58.9 - Irritable bowel syndrome without diarrhea (10) Benign essential HTN Status: Chronic History of Present Illness Date of Admission: 02/14/20 Chief Complaint: Weakness, fever, nausea, dyspnea The patient is a 79 y/o F w/ PMHx: Chronic anemia, PAF, Former Tobacco use, Hx Breast CA s/p mastectomy, CKD stage III/IV, Anxiety and Depression, IBS, GERD, Hx pericardial effusion s/p pericardial window, Hx STEMI, CAD s/p PCI, HTN, HLD, Chronic back pain with spinal stenosis who presents to the [facility] ED on 02/14/20 with history of several days of significant fatigue, malaise, poor oral intake with chills, elevated temperatures at home (100.4) but no specific cough or dyspnea with recent nausea and dry heaves and an episode of loose stools on day of ED presentation in addition to a frontal throbbing headache rated at 5-10 in severity history of prior similar headaches but not improving prompting eventual ED presentation for evaluation. Work-up in the ED included T 99.6, heart rate 91, BP 137/79, respiratory rate 18 noted to be 88% on room air but improved to 96% on 2 L nasal cannula, CBC with WBC 6.5, hemoglobin 11.6, platelet 104 with lymphopenia noted no severe left shift as well as thrombocytopenia new from prior, unremarkable coags, troponin 0.022, EKG with no acute evidence of ischemia, CMP with chloride 109, BUN/creatinine 24/1.75, lactic acid 1.0, u rinalysis with specific gravity 1.010, protein 30, occult blood 25, positive nitrite, 100 leukocyte esterase, WBCs 10-25, 2+ urine bacteria, urine culture pending per ED, blood culture x2 pending per ED, chest x-ray with new focus of increased markings in the left midlung suggestive of early infiltrate with a moderate to large hiatal hernia. In the ED patient ministered Rocephin and azithromycin. Past Medical History Past Medical History (Chronic Problems): Chronic Problems (Last Reviewed 11/29/19 @ 14:53 by Tesha Kingsley) HLD (hyperlipidemia) (Chronic) Anxiety and depression (Chronic) Status post pericardiocentesis (Chronic 06/14/19) History of acute anterior wall myocardial infarction (Chronic 06/13/19) Atherosclerosis of coronary artery of [place] heart without angina pectoris (Chronic) Segmented LV systolic dysfunction- Moderate LVEF: by LV gram 50 % Elevated Left Ventricular End Diastolic Pressure Single vessel CAD of the MID LAD Non obstructive coronary arteries Successful PTCA/LUTHER Mid LAD with thrombectome, utilizing a 2.25 x 32 Promus Synergy, followed immediately distally with a 2.25 x 8 Promus Synergy x 2, followed immediately upstream from initial stent with a 2.5 x 32 Promus Synergy; 100%-->0%, no dissection. Successful emergent IABP for cardiogenic shock and hypoxia. Stented coronary artery (Chronic 06/14/19) Segmented LV systolic dysfunction- Moderate; LVEF: by LV gram 50 %; Elevated Left Ventricular End Diastolic Pressure; 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 Successful emergent IABP for cardiogenic shock and hypoxia. Spinal stenosis (Chronic) IBS (irritable bowel syndrome) (Chronic) Benign essential HTN (Chronic) Medical History: Medical History (Last Reviewed 11/29/19 @ 14:53 by Tesha Kingsley) Pericardial effusion without cardiac tamponade (Resolved) Onset Date: 06/14/19 I31.3 History of acute anterior wall myocardial infarction (Chronic) Onset Date: 06/13/19 I25.2 Shock, cardiogenic (Resolved) Onset Date: 06/13/19 R57.0 Acute CO, anterior wall, initial episode of care (Resolved) I21.09 Allergies Sulfa (Sulfonamide Antibiotics) Allergy (Verified 02/14/20 10:32) Itching soap Adverse Reaction (Intermediate, Verified 02/14/20 10:32) Pre-operative: Itching gabapentin [From Neurontin] Adverse Reaction (Verified 02/14/20 10:32) Nausea Home Medications: Ambulatory Orders Medication Instructions Recorded Pregabalin [Lyrica] 50 mg PO DAILY 06/13/19 citalopram 20 mg tablet 20 mg PO DAILY 06/20/19 aspirin 81 mg tablet,delayed 81 mg PO DAILY #30 tab 06/22/19 release hydrocodone 5 mg-acetaminophen 325 1 tab PO Q8H PRN tab 06/22/19 mg tablet meloxicam 15 mg tablet 15 mg PO DAILY 06/29/19 gemfibrozil 600 mg tablet 600 mg PO DAILY tab 07/23/19 metoprolol succinate 50 mg 50 mg PO DAILY #90 tab 09/25/19 tablet,extended release 24 hr alprazolam 0.25 mg tablet 0.25 mg PO BID PRN 10/22/19 furosemide 40 mg tablet 20 mg PO Q OTHER DAY tab 10/22/19 clopidogrel 75 mg tablet 75 mg PO DAILY #90 tab 11/02/19 losartan 25 mg tablet 25 mg PO DAILY #30 tab 11/09/19 coenzyme Q10 100 mg capsule 100 mg PO DAILY 11/29/19 famotidine 20 mg tablet 20 mg PO BID PRN tab 11/29/19 lactobacillus combination no.9 4 4,000 mmu cells PO DAILY 11/29/19 billion cell capsule Surgical History: Surgical History (Last Reviewed 11/29/19 @ 14:53 by Tesha Kingsley) Status post pericardiocentesis (Chronic) Onset Date: 06/14/19 Z98.890 Stented coronary artery (Chronic) Onset Date: 06/14/19 Z95.5 Segmented LV systolic dysfunction- Moderate; LVEF: by LV gram 50 %; Elevated Left Ventricular End Diastolic Pressure; 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 Successful emergent IABP for cardiogenic shock and hypoxia. Surgical History: angioplasty, hysterectomy, mastectomy, - - PCI, hysterectomy, left mastectomy reconstruction in 1981, bilateral total hip replacement, cho lecystectomy, laminectomy. 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 Review of Systems Constitutional: Reports: Anorexia, Chills, Fever, Malaise, Weakness, Fatigue. Denies: Weight Change HEENT: Reports: Head Aches, Sinus Congestion. Denies: Sinus Drainage Cardiovascular: Denies: Chest Pain, Palpitations Respiratory: Reports: Cough, Shortness of Breath, Shortness of breath at rest, Shortness of breath upon exertion. Denies: Sputum production, Wheezing Gastrointestinal: Reports: Diarrhea, Nausea, Vomiting. Denies: Abdominal Pain Genitourinary: Denies: Dysuria Musculoskeletal: Reports: Back Pain, Joint Pain. Denies: Joint Tenderness Skin: Denies: Rash, Wounds Neurological: Denies: Numbness, Tingling, Focal weakness Psychiatric: Reports: Anxiety, Depression. Denies: Homicidal Ideations, Suicidal Ideations Hematologic/ Lymphatic: Reports: Anemia. Denies: Easy Bruising, Easy Bleeding VTE Information - Inpt Only VTE Present on Admission: No VTE Mechan Device Prophylaxis: SCD's VTE Pharm Prophylaxis ordered?: Yes Patient Problems: Active and Suspected Problems (Last Reviewed 11/29/19 @ 14:53 by Tesha Kingsley) Pneumonia (Acute) UTI (urinary tract infection) (Acute) Subjective: Seated upright in the medical surgical bed, fatigued appearance, no acute distress. Objective: Physical Examination: General: awake, alert, oriented x 3 and cooperative, seated upright in the medical surgical bed, no acute distress. Skin: normal color, turgor, no icterus, cyanosis occasional very staged ecchymoses to the extremities. HEENT: AT/NC, EOMI, PERRLA, moderately dry MM, no carotid bruits or JVD noted. Lungs: Diminished breath sounds, greater bases, no evidence of distress, no rales, ronchi or wheezing. Heart: Regular rate and rhythm; no gallop, rub audible. Abdomen: soft, NTTP, ND, mildly hyperactive BS, no HSM. Extremities: no cyanosis, clubbing, mild discomfort to the left lateral leg where she notes she bumped her leg. Neurological: patient awake, alert, oriented x 3; cognitive function appears baseline intact; pupils equally reactive to light and accomodation; cranial nerves II-XII grossly normal, moving all 4 extremities, no focal deficits, strength moderately global decreased. Psychiatric: affect appears mildly fatigued otherwise normal, no acute evidence of depressive or anxiety feelings. - Physical Exam Vitals/I&O's: Vital Signs Temp Pulse Resp BP Pulse Ox 98.9 F 87 19 H 145/76 H 95 02/14/20 11:35 02/14/20 11:35 02/14/20 11:35 02/14/20 11:35 02/14/20 11:35 Oxygen Flow Rate (L/min) 2 Oxygen Delivery Method Room Air Weight: 160 lb Body Mass Index (BMI) 27.4 Laboratory Results 02/14/20 11:00: WBC 6.5, RBC 3.69 L, Hgb 11.6 L, Hct 36.7 L, MCV 99.5 H, MCH 31.4, MCHC 31.6 L, RDW Std Deviation 47.9 H, RDW Coeff of Barry 13.2, Plt Count 104 L, MPV 10.5, Immature Gran % (Auto) 0.300, Neut % (Auto) 91.0 H, Lymph % (Auto) 4.0 L, Collier % (Auto) 4.3, Eos % (Auto) 0.2, Baso % (Auto) 0.2, Absolute Neuts (auto) 6.0, Absolute Lymphs (auto) 0.26 L, Nucleated RBC % 0, Differential Comment , Platelet Estimate SLT DEC, RBC Morphology NORM C+C 02/14/20 11:00: PT 12.8, INR 1.0, APTT 31.0 02/14/20 11:00: Sodium 143, Potassium 3.5, Chloride 109 H, Carbon Dioxide 25.0, Anion Gap 9, BUN 24 H, Creatinine 1.75 H, Estim Creat Clear Calc 21.77, Est GFR (MDRD) Af Amer 36 L, Est GFR (MDRD) Non-Af 30 L, BUN/Creatinine Ratio 13.7, Glucose 98, Calcium 9.2, Total Bilirubin 0.60, AST 14 L, ALT 14, Alkaline Phosphatase 73, Troponin I 0.022, Total Protein 7.2, Albumin 3.5, Globulin 3.7, Albumin/Globulin Ratio 0.9 02/14/20 11:00: Lactic Acid 1.0 02/14/20 11:19: Urine Color Yellow, Urine Clarity Sl. Cloudy, Urine pH 6.0, Ur Specific Cos Cob 1.010, Urine Protein 30 H, Urine Glucose (UA) Normal, Urine Ketones Negative, Urine Occult Blood 25 H, Urine Nitrite Positive H, Urine Bilirubin Negative, Urine Urobilinogen Normal, Ur Leukocyte Esterase 100 H, Urine RBC 0-5 SEEN, Urine WBC 10-25 SEEN, Ur Squamous Epith Cells 0-5 SEEN, Urine Bacteria 2+, Urine Mucus 0 SEEN Assessment/Plan All Active Problems (Last Reviewed 11/29/19 @ 14:53 by Tesha Kingsley) Pneumonia (Acute) UTI (urinary tract infection) (Acute) Pericardial effusion without cardiac tamponade (Resolved 06/14/19) Shock, cardiogenic (Resolved 06/13/19) Acute CO, anterior wall, initial episode of care (Resolved) The patient is a 79 y/o F w/ PMHx: Chronic anemia, PAF, Former Tobacco use, Hx Breast CA s/p mastectomy, CKD stage III/IV, Anxiety and Depression, IBS, GERD, Hx pericardial effusion s/p pericardial window, Hx STEMI, CAD s/p PCI, HTN, HLD, Chronic back pain with spinal stenosis who presents to the [facility] ED on 02/14/20 with history of several days of significant fatigue, malaise, poor oral intake with chills, elevated temperatures at home (100.4) but no specific cough or dyspnea with recent nausea and dry heaves and an episode of loose stools on day of ED presentation in addition to a frontal throbbing headache rated at 5-10 in severity history of prior similar headaches but not improving. 1. Acute Malaise, Nausea, Emesis, Diarrhea, Fever, Chills with Incidentally noted Hypoxia, L Midlung Infiltrate Pneumonia possible secondary to Acute Viral Syndrome, COVID-19: Patient with lymphopenia, CXR with new focus of increased markings in left midlung, although urinalysis notable with concern for UTI concurrently, will admit to the COVID unit, will maintain on oxygen with wean as tolerated to room air, continue MDI inhaler, maintain on IV Rocephin and Dora thromycin, HOB, IS parameters w/ pending sputum cultures and urine antigens, pending respiratory panel per ED, will obtain procalcitonin, CRP, CPK, Ferritin, LDH, COVID-19 testing. If patient worsens with need for oxygen >6 L would plan intubation with ICU physician continued care. Bld cx x 2 obtained in the ED. 2. Acute Urinary Tract Infection: UA upon ED evaluation remarkable, pending UCx, admission CBC w/ WBC 6.5 without marked L shift however, continue judicious IVFs given #1, monitor I/Os, continue IV Rocephin pending sensitivities and speciation. Bld cx x 2 obtained in the ED. 3. Pericardial Effusion: Onset following 06/14/19 catheterization, ECHO at that time w/ ? gelatinous substance adhered to the epicardium with a small liquid pericardial effusion with possible perforation either from the wire or from her stenting w/ emergent transfer to [facility]. Patient underwent repeat catheterization at [facility] w/ no overt bleeding from her coronary arteries w/ successful percutaneous pericardiocentesis with subsequent drainage. 4. PAF: Most recent echocardiogram 07/09/2019 with EF 60%, stage I diastolic dysfunction, mild TBI, RVSP 38 mmHg, mild pulmonary hypertension, had noted to have this transiently at [facility] and had been placed on anticoagulant therapy at that time, currently maintained on aspirin, Plavix, metoprolol. 5. Chronic anemia: Admission hemoglobin 11.6, baseline appears 10-11, stable, trend. 6. CAD, Hx STEMI: s/p 06/14/19 PTCA/LUTHER Mid LAD with thrombectomy, currently maintained on aspirin, Plavix, losartan, metoprolol, current list without statin therapy. Presentation troponin 0 0.022, EKG with no acute evidence of ischemia. 7. Hypertension: Continue home regimen including Lasix, losartan, metoprolol, Lasix every other day, PRN hydralazine. 8. Hyperlipidemia: Not on statin therapy but no allergy specifically listed, currently maintained on gemfibrozil. 9. Anxiety and depression: We will continue patient home low-dose alprazolam as well as citalopram. 10. Chronic Kidney Disease Stage III/IV: Admission BUN/Cr 24/1.75, baseline renal function 1.5-1.9, similar, stable, repeat BMP in AM. 11. History of breast cancer: Status post left sided mastectomy, remission. 12. GERD: We will maintain on famotidine. 13. DVT prophylaxis: SCDs, heparin. 14. CODE status: Patient HCPOA is her and secondary is her daughter who is a nurse and living will is currently in place. Discussed CODE status at length including difference between FULL code, DNR-CCA and DNR-CC status. Following discussions about the differences in these status, requested full CODE STATUS however she notes that if events lead to her cardiac arrest she only wants 2 cycles. Advanced Care Planning Face to Face Time: 16 minutes. Inpatient E&M: 16524 Init Hosp L3 Procedures: 85235 Advncd Care Plan 30 Min
[2020-02-14] MEDS: Ceftriaxone 1 GM/50 ML BAG IV (12:28)
--- NOTE | 2020-02-14 13:29 | CASEMGMT ---
Social Work Pt does have a living will on file but no health care POA. SW spoke with pt who states she does have a HCPOA which names her first and daughter second. Pt notified that document not on file and requested to bring in when able. HANY Stoll
[2020-02-14] MEDS: 0.9% Normal Saline 1,000 ML 100 ML IV (15:00)
[2020-02-14 15:19] LABS: Ferritin 42 ng/mL (8-252); LDH 172 U/L (84-246); Magnesium 1.9 mg/dL (1.6-2.6)
[2020-02-14] MEDS: Ceftriaxone 1 GM/50 mL Premix x1 IV (17:22)
[2020-02-14] MEDS: Acetaminophen 325 MG Tablet 650 MG PO (20:10)
[2020-02-14] MEDS: Heparin Injection (Vial) 5,000 UNIT/ML VIAL 5000 UNIT SC (21:46)
[2020-02-15] VITALS (8 sets, daily range): BP systolic 134–172; BP diastolic 72–92; PULSE 69–119; RESP 16–18; TEMP 36.6–37; O2SAT 95–99
[2020-02-15] MEDS: 0.9% Normal Saline 1,000 ML 100 ML IV ×3 (01:44→20:40)
--- NOTE | 2020-02-15 03:58 | RAD_ITS ---
STUDY: X-RAY CHEST REASON FOR EXAM: Female, 79 years old. Dyspnea, shortness of breath TECHNIQUE: Single AP portable view of the chest. COMPARISON: February 12 and 2019. FINDINGS: Presumed superimposed left breast parenchyma-breast implant probable hiatal hernia. Hazy opacification left perihilar parenchyma. There is no demonstrated pleural abnormality. Normal size heart. Normal mediastinum and brigitte. Normal visualized pulmonary arteries. Normal visualized aortic arch and descending thoracic aorta. There is a dextroscoliosis of the thoracic spine. Normal visualized ribs, clavicles, and shoulders. There is no demonstrated abnormality of the visualized soft tissue structures of the upper abdomen. RAD/Chest 1 View (Portable) IMPRESSION: Hazy opacification left perihilar lung exaggerated by presumed superimposed parenchyma/breast prostheses. Pneumonia may be present. Electronically Signed: Rebeca Chavez MD at 4:49 EDT , Service support ,
[2020-02-15] MEDS: hydrALAZINE 20 MG/ML Vial 10 MG IV ×2 (05:11→09:00)
[2020-02-15 05:13] LABS: Basophil# 0.01 X10^3/uL; Basophil% 0.1 % (0-1); Eosinophil# 0.04 X10^3/uL; Eosinophils% 0.5 % (0-5); Hematocrit 34.4 % (37-47); Hemoglobin 10.8 g/dL (12.0-15.0); Lymphocyte % 14.3 % (19-41); Mean Corp Hgb Conc 31.4 g/dL (32-36); Mean Corpuscular Hgb 31.6 pg (27.0-32.0); Mean Corpuscular Volume 100.6 fL (81-99); Mean Platelet Vol. 10.7 fl (6.2-12.0); Monocyte# 0.51 X10^3/uL; Monocyte% 6.6 % (0-10); NRBC Flagged by Analyzer 0 % (0-5); Neutrophil # 5.99 X10^3/uL (2.7-7.7); Platelet Count 117 K/mm3 (150-450); RBC Distribution Width CV 13.2 % (11.6-14.6); RBC Distribution Width SD 48.2 fl (35.1-43.9); Red Blood Count 3.42 M/mm3 (4.2-5.4); White Blood Count 7.7 K/mm3 (4.4-11.0)
[2020-02-15 05:29] LABS: ALB/GLOB Ratio 0.8 RATIO (0.9-2.4); AST(SGOT) 14 U/L (15-37); Alanine Aminotransfer ALT/SGPT 15 U/L (13-56); Alkaline Phosphatase 63 U/L (45-117); Anion Gap 11 (5-15); BUN 22 mg/dL (7-18); Calcium,Total 8.4 mg/dL (8.5-10.1); Chloride 111 mmol/L (98-107); Creatinine, Serum 1.47 mg/dL (0.55-1.02); EST Glomerular Filtration Rate 36 mL/min (>60); Est Glom Filt Rate - Afr Amer 44 mL/min (>60); Estimated Creatinine Clearance 27.01 ml/min; Globulin 3.6 g/dL (2.2-4.2); Glucose 68 mg/dL (74-106); Potassium 3.6 mmol/L (3.5-5.1); Protein, Total 6.6 g/dL (6.4-8.2); Sodium Level 142 mmol/L (136-145)
--- NOTE | 2020-02-15 06:59 | PCM.PN.HOSP ---
Patient Problems: Active and Suspected Problems (Last Reviewed 11/29/19 @ 14:53 by Tesha Kingsley) Pneumonia (Acute) UTI (urinary tract infection) (Acute) Subjective: Patient notes feeling remarkably improved since initial ED presentation. She denies any current coughing or dyspnea. She states she is urinating frequently but denies any dysuria. She states she does have ongoing chills but denies any fever. She notes mild nausea but no emesis nor any abdominal cramping, pain or loose stools. Patient denies abdominal pain, chest pain. Objective: Physical Examination: General: awake, alert, oriented x 3 and cooperative, seated upright in the [facility] unit bed, [facility]. Skin: normal color, turgor, no icterus, cyanosis occasional very staged ecchymoses to the extremities. HEENT: AT/NC, EOMI, PERRLA, improved MMM. Lungs: Diminished breath sounds, greater bases, no evidence of distress, no rales, ronchi or wheezing. Heart: Regular rate and rhythm; no gallop, rub audible. Abdomen: soft, NTTP, ND, normalized BS. Extremities: no cyanosis, clubbing, mild discomfort to the left lateral leg. Neurological: patient awake, alert, oriented x 3; cognitive function appears baseline intact; pupils equally reactive to light and accomodation; cranial nerves II-XII grossly normal, moving all 4 extremities, no focal deficits, strength improving, remains moderately globally decreased. Psychiatric: affect appears improved, less fatigued, no acute evidence of depressive or anxiety feelings. Vitals/I&O's: Vital Signs Temp Pulse Resp BP Pulse Ox 98.3 F 72 16 170/73 H 95 02/15/20 04:59 02/15/20 05:11 02/15/20 04:59 02/15/20 04:59 02/15/20 04:59 Oxygen Flow Rate (L/min) 2 Oxygen Delivery Method Room Air Weight: 154 lb 15.759 oz Body Mass Index (BMI) 25.7 Intake and Output for Last 24 Hours 02/13/20 02/14/20 02/15/20 23:59 23:59 23:59 Intake Total 220 / 320 1160 / 1160 Balance 220 / 320 1160 / 1160 Microbiology Past 72 Hours 02/14/20 11:19 Urine Catheter - Catheter Streptococcus pneumoniae Antigen (M - Final 02/14/20 11:19 Urine Catheter - Catheter Legionella Antigen - Final 02/14/20 12:40 Mucosa - Nose Respiratory Panel (PCR) - Final 02/14/20 12:40 Mucosa - Nose Influenza Types A,B Direct FA (GIFTY) - Final Laboratory Results 02/14/20 11:00: WBC 6.5, RBC 3.69 L, Hgb 11.6 L, Hct 36.7 L, MCV 99.5 H, MCH 31.4, MCHC 31.6 L, RDW Std Deviation 47.9 H, RDW Coeff of Barry 13.2, Plt Count 104 L, MPV 10.5, Immature Gran % (Auto) 0.300, Neut % (Auto) 91.0 H, Lymph % (Auto) 4.0 L, Coke % (Auto) 4.3, Eos % (Auto) 0.2, Baso % (Auto) 0.2, Absolute Neuts (auto) 6.0, Absolute Lymphs (auto) 0.26 L, Nucleated RBC % 0, Differential Comment , Platelet Estimate SLT DEC, RBC Morphology NORM C+C 02/14/20 11:00: PT 12.8, INR 1.0, APTT 31.0 02/14/20 11:00: Sodium 143, Potassium 3.5, Chloride 109 H, Carbon Dioxide 25.0, Anion Gap 9, BUN 24 H, Creatinine 1.75 H, Estim Creat Clear Calc 21.77, Est GFR (MDRD) Af Amer 36 L, Est GFR (MDRD) Non-Af 30 L, BUN/Creatinine Ratio 13.7, Glucose 98, Calcium 9.2, Total Bilirubin 0.60, AST 14 L, ALT 14, Alkaline Phosphatase 73, Troponin I 0.022, Total Protein 7.2, Albumin 3.5, Globulin 3.7, Albumin/Globulin Ratio 0.9 02/14/20 11:00: Lactic Acid 1.0 02/14/20 11:19: Urine Color Yellow, Urine Clarity Sl. Cloudy, Urine pH 6.0, Ur Specific [place] 1.010, Urine Protein 30 H, Urine Glucose (UA) Normal, Urine Ketones Negative, Urine Occult Blood 25 H, Urine Nitrite Positive H, Urine Bilirubin Negative, Urine Urobilinogen Normal, Ur Leukocyte Esterase 100 H, Urine RBC 0-5 SEEN, Urine WBC 10-25 SEEN, Ur Squamous Epith Cells 0-5 SEEN, Urine Bacteria 2+, Urine Mucus 0 SEEN 02/14/20 11:40: COVID-19 (WILLIAM) Pending 02/14/20 14:55: Magnesium 1.9, Ferritin 42, Lactate Dehydrogenase 172, C-React Prot Ext Range 27.10 H 02/14/20 14:55: Procalcitonin 6.10 H 02/15/20 05:00: WBC 7.7, RBC 3.42 L, Hgb 10.8 L, Hct 34.4 L, MCV 100.6 H, MCH 31.6, MCHC 31.4 L, RDW Std Deviation 48.2 H, RDW Coeff of Barry 13.2, Plt Count 117 L, MPV 10.7, Immature Gran % (Auto) 0.500, Neut % (Auto) 78.0 H, Lymph % (Auto) 14.3 L, Coke % (Auto) 6.6, Eos % (Auto) 0.5, Baso % (Auto) 0.1, Absolute Neuts (auto) 6.0, Absolute Lymphs (auto) 1.10, Nucleated RBC % 0 02/15/20 05:00: Sodium 142, Potassium 3.6, Chloride 111 H, Carbon Dioxide 20.0 L, Anion Gap 11, BUN 22 H, Creatinine 1.47 H, Estim Creat Clear Calc 27.01, Est GFR (MDRD) Af Amer 44 L, Est GFR (MDRD) Non-Af 36 L, BUN/Creatinine Ratio 15.0, Glucose 68 L, Calcium 8.4 L, Total Bilirubin 0.40, AST 14 L, ALT 15, Alkaline Phosphatase 63, Total Protein 6.6, Albumin 3.0 L, Globulin 3.6, Albumin/Globulin Ratio 0.8 L Current Medications Acetaminophen (Tylenol) 650 mg PO Q6H PRN PRN PRN Reason: Pain Score 1-10/Temp > 100.7 F Last Admin: 02/14/20 20:10 Dose: 650 mg Documented by: Al Hydroxide/Mg Hydroxide (Mylanta Ii) 30 ml PO Q6H PRN PRN PRN Reason: Gastric Burning Albuterol Sulfate (Ventolin Aerosols) 2.5 mg INHALATION Q4H PRN PRN PRN Reason: Dyspnea, wheezing Alprazolam (Xanax) 0.25 mg PO BID PRN PRN Reason: ANXIETY Aspirin (Ecotrin) 81 mg PO DAILY [facility] Azithromycin (Zithromax) 500 mg PO Q24 [facility] Citalopram Hydrobromide (Celexa) 20 mg PO DAILY [facility] Clopidogrel Bisulfate (Plavix) 75 mg PO DAILY [facility] Dextrose (D50w Syringe) 0 gm IV X1 PRN; Protocol PRN Reason: Hypoglycemia Famotidine (Pepcid) 20 mg PO DAILY PRN PRN Reason: ACID REFLUX Furosemide (Lasix) 20 mg PO QODAY@1000 [facility] Gemfibrozil (Lopid) 600 mg PO DAILY [facility] Glucagon () 1 mg IM .X1 PRN PRN Reason: Hypoglycemia Guaifenesin (Robitussin) 20 ml PO Q4H PRN PRN PRN Reason: COUGH Heparin Sodium (Porcine) (Heparin Na) 5,000 unit SC Q12 [facility] Last Admin: 02/14/20 21:46 Dose: 5,000 unit Documented by: Hydralazine HCl (Apresoline Iv) 10 mg IV Q4H PRN PRN PRN Reason: SBP > 160 Last Admin: 02/15/20 05:11 Dose: 10 mg Documented by: Sodium Chloride () 1,000 mls @ 100 mls/hr IV .Q10H [facility] Last Admin: 02/15/20 01:44 Dose: 100 mls/hr Documented by: Ceftriaxone Sodium 2 gm/ (Sodium Chloride) 50 mls @ 100 mls/hr IV Q24 [facility] Lactobacillus Acidophilus (Acidophilus) 1 tablet PO TID [facility] Last Admin: 02/15/20 05:11 Dose: 1 tablet Documented by: Losartan Potassium (Cozaar) 25 mg PO DAILY [facility] Magnesium Hydroxide (Milk Of Magnesia) 30 ml PO DAILY PRN PRN PRN Reason: Constipation Melatonin (Melatonin) 3 mg PO QHS PRN PRN PRN Reason: INSOMNIA Metoprolol Succinate (Toprol Xl (Beta Alessandra)) 50 mg PO DAILY [facility] Morphine Sulfate () 2 mg IV Q3H PRN PRN PRN Reason: Pain Score 6-10/10 Nitroglycerin (Nitrostat) 0.4 mg SUBLINGUAL Q5M PRN PRN Reason: CARDIAC/CHEST PAIN Ondansetron HCl (Zofran) 4 mg IV Q8H PRN PRN PRN Reason: NAUSEA/VOMITING Pregabalin (Lyrica) 50 mg PO DAILY [facility] Prochlorperazine Edisylate (Compazine Iv) 5 mg IV Q4H PRN PRN PRN Reason: Breakthrough nausea/vomiting Psyllium Hydrophilic Mucilloid (Metamucil) 1 packet PO DAILY PRN PRN PRN Reason: Constipation Senna/Docusate Sodium (Senokot-S, Nayely-Colace) 2 tablet PO BID PRN PRN PRN Reason: Constipation Sodium Chloride () 10 - 40 ml IV UD PRN PRN Reason: SALINE FLUSH Throat Lozenges (Cepacol Sore Throat Lozenge) 1 lozenge MUCOUS MEM Q2H PRN PRN PRN Reason: SORE THROAT STROKE Vital Signs/Narrative: Vital Signs Temp Pulse Resp BP Pulse Ox 02/15/20 05:11 72 02/15/20 04:59 98.3 F 72 16 170/73 H 95 Medical Necessity - Tobacco Use Smoking Status: Former smoker Tobacco Use: Non-smoker Assessment/Plan All Active Problems (Last Reviewed 11/29/19 @ 14:53 by Tesha Kingsley) Pneumonia (Acute) UTI (urinary tract infection) (Acute) Pericardial effusion without cardiac tamponade (Resolved 06/14/19) Shock, cardiogenic (Resolved 06/13/19) Acute SC, anterior wall, initial episode of care (Resolved) The patient is a 79 y/o F w/ PMHx: Chronic anemia, PAF, Former Tobacco use, Hx Breast CA s/p mastectomy, CKD stage III/IV, Anxiety and Depression, IBS, GERD, Hx pericardial effusion s/p pericardial window, Hx STEMI, CAD s/p PCI, HTN, HLD, Chronic back pain with spinal stenosis who presents to the [facility] ED on 02/14/20 with history of several days of significant fatigue, malaise, poor oral intake with chills, elevated temperatures at home (100.4) but no specific cough or dyspnea with recent nausea and dry heaves and an episode of loose stools on day of ED presentation in addition to a frontal throbbing headache rated at 5-10 in severity history of prior similar headaches but not improving. 1. Acute Malaise, Nausea, Emesis, Diarrhea, Fever, Chills with Incidentally noted Hypoxia, L Midlung Infiltrate Pneumonia possible secondary to Acute Viral Syndrome, COVID-19: Patient with lymphopenia, CXR with new focus of increased markings in left midlung, although urinalysis notable with concern for UTI concurrently, admitted to the COVID unit, maintained on oxygen with wean as tolerated to room air, continue MDI inhaler, maintained on IV Rocephin and Azithromycin, HOB, IS parameters. Repeat 02/15/2020 a.m. chest x-ray with hazy opacification left perihilar lung exaggerated by breast prosthesis. 02/15/2020 CBC with WC 7.7, hemoglobin 10.8, platelet 117 with no severe left shift and improvement of prior absolute lymphopenia noted. COVID testing pending. Additional labs obtained including normal ferritin 42, normal LDH is 172, elevated CRP 27.10, elevated procalcitonin 6.10, negative respiratory panel, negative urine antigens, pending urine culture. D-dimer also obtained and noted to be 0.76 however when age-adjusted is normal. Bld cx x 2 obtained in the ED. 2. Acute Urinary Tract Infection: Likely cause of presentation, UA upon ED evaluation remarkable, pending UCx, admission CBC w/ WBC 6.5 without marked L shift, continue judicious IVFs given #1, monitor I/Os, continue IV Rocephin pending sensitivities and speciation. Bld cx x 2 obtained in the ED. 3. Chronic pain syndrome: Patient with chronic pain and upon initial presentation given symptoms PRN agents had been held however will resume now as patient's noting discomfort and mildly anxious with repeat EKG with no acute evidence of ischemia, requesting her [employer]. 4. Pericardial Effusion: Onset following 06/14/19 catheterization, ECHO at that time w/ ? gelatinous substance adhered to the epicardium with a small liquid pericardial effusion with possible perforation either from the wire or from her stenting w/ emergent transfer to [facility]. Patient underwent repeat catheterization at [facility] w/ no overt bleeding from her coronary arteries w/ successful percutaneous pericardiocentesis with subsequent drainage. 5. PAF: Most recent echocardiogram 07/09/2019 with EF 60%, stage I diastolic dysfunction, mild TBI, RVSP 38 mmHg, mild pulmonary hypertension, had noted to have this transiently at [facility] and had been placed on anticoagulant therapy at that time, currently maintained on aspirin, Plavix, metoprolol. 5. Chronic anemia: Admission hemoglobin 11.6, baseline appears 10-11, 02/15/20 HGb 10.8, stable, trend. 6. CAD, Hx STEMI: s/p 06/14/19 PTCA/LUTHER Mid LAD with thrombectomy, currently maintained on aspirin, Plavix, losartan, metoprolol, current list without statin therapy. Presentation troponin 0.022, EKG with no acute evidence of ischemia and repeat given anxiety obtained but similar to prior. 7. Hypertension: Continue home regimen including Lasix, losartan, metoprolol, Lasix every other day, PRN hydralazine. 8. Hyperlipidemia: Not on statin therapy but no allergy specifically listed, currently maintained on gemfibrozil. 9. Anxiety and depression: We will continue patient home low-dose alprazolam as well as citalopram. 10. Chronic Kidney Disease Stage III/IV: Admission BUN/Cr 24/1.75, baseline renal function 1.5-1.9, similar, 02/15/20 BUN/Cr 22/1.47, repeat BMP in AM. 11. History of breast cancer: Status post left sided mastectomy, remission. 12. GERD: We will maintain on famotidine. 13. DVT prophylaxis: SCDs, heparin. 14. CODE status: Patient HCPOA is her and secondary is her daughter who is a nurse and living will is currently in place. Full Code status. Inpatient E&M: 56747 Subs Hosp L2
[2020-02-15] MEDS: Ondansetron 4 MG/2 ML Vial IV (08:21)
[2020-02-15] MEDS: Losartan Potassium 25 MG Tablet PO (09:18)
[2020-02-15] MEDS: Furosemide 40 MG Tablet 20 MG PO (09:18)
[2020-02-15] MEDS: Pregabalin 50 MG Capsule PO (09:18)
[2020-02-15] MEDS: ALPRAZolam 0.25 MG Tablet PO ×2 (09:19→20:41)
[2020-02-15] MEDS: Acetaminophen 325 MG Tablet 650 MG PO (09:19)
[2020-02-15] MEDS: Citalopram 20 MG Tablet PO (09:19)
[2020-02-15] MEDS: Metoprolol(XL)Succ 50 MG Tablet PO (09:19)
[2020-02-15] MEDS: Clopidogrel Bisulfate 75 MG Tablet PO (09:20)
[2020-02-15] MEDS: Azithromycin 250 MG Tablet 500 MG PO (09:20)
[2020-02-15] MEDS: Aspirin E.C. 81 MG Tablet PO (09:21)
[2020-02-15] MEDS: Heparin Injection (Vial) 5,000 UNIT/ML VIAL 5000 UNIT SC ×2 (09:21→20:41)
--- NOTE | 2020-02-15 09:30 | EKG12_ITS ---
Test Reason : ARRYTHMIA Blood Pressure : / mmHG Vent. Rate : 114 BPM Atrial Rate : 114 BPM P-R Int : 178 ms QRS Dur : 080 ms QT Int : 392 ms P-R-T Axes : 075 027 160 degrees QTc Int : 540 ms Sinus tachycardia with Premature atrial complexes ST & T wave abnormality, consider inferior ischemia ST & T wave abnormality, consider anterolateral ischemia Abnormal ECG When compared with ECG of 14-FEB-2020 11:23, MANUAL COMPARISON REQUIRED, DATA IS UNCONFIRMED Confirmed by ROGER BALLARD ([id number]), associate entertainment editor NGUYEN BROWN ([id number] on 02/22/2020 10:34:21 AM Referred By: OTÑO Confirmed By:ROGER BALLARD
[2020-02-15] MEDS: HYDROcodone Bitartrate/Apap 5/325 Tablet PO ×2 (10:11→20:41)
--- NOTE | 2020-02-15 10:20 | CASEMGMT ---
ISAMAR CM Assessment Note Presentation: pneumonia, UTI. COVID-19 testing pending Attempted numerous times to contact pt in room. She is not able to participate in assessment at this time. Call to Daughter Eboni who lives with pt and her . Per Eboni, she helps take care of her parents since pt's had a stroke earlier this year. Pt is independent, no care needs per daughter, but pt does alot for her . Daughter needed information on how to get Home Health Care for if needed- information given to call PCP office and discuss with nurse in PCP office. Daughter helps with yard work, cleaning, shopping if needed. -Daughter is @ home currently until pt's COVID-19 results are returned. If negative, she will return to work. Pt can isolate in home, and daughter is aware that pt's will need to be kept away from pt if results are positive. Other family can assist with shopping, getting prescriptions or outside home needs. PCP: Dr. Candis Lawler Specialists: Dr. Mc, cardiology; Pain clinic in [place]. [facility]erred [facility]acy: [facility] Prescription Benefit: none LNOK : Daughter Eboni is contact. Pierre Barcenas, -cannot participate currently due to stroke. Living Arrangements: lives in one story home. No care needs identified. Transportation: pt drives, or if needed, daughter can drive DME: cane only HHC: none Patient DC goals: Home DC PLAN: Anticipate Home on dc. Pt is currently on RA. PT/OT evaluations are pending. Andrew ROJO RN ACM
[2020-02-15] MEDS: Gemfibrozil 600 MG Tablet PO (11:36)
[2020-02-15] MEDS: Meloxicam 15 MG Tablet PO (11:36)
[2020-02-15 14:31] LABS: D-Dimer Quantitative (DVT/PE) 0.76 FEU/ug/m (0.27-0.49)
[2020-02-16 05:10] VITALS: BP 141/81; PULSE 78; RESP 16; TEMP 36.6; O2SAT 92
[2020-02-16] MEDS: 0.9% Normal Saline 1,000 ML 100 ML IV (05:12)
[2020-02-16 07:00] VITALS: O2SAT 97
[2020-02-16 07:23] LABS: D-Dimer Quantitative (DVT/PE) 0.64 FEU/ug/m (0.27-0.49)
[2020-02-16 07:34] VITALS: BP 155/97; PULSE 76; RESP 16; TEMP 36.8; O2SAT 97
--- NOTE | 2020-02-16 07:54 | PN_ITS ---
Patient Problems: Active and Suspected Problems (Last Reviewed 11/29/19 @ 14:53 by Tesha Kingsley) Pneumonia (Acute) UTI (urinary tract infection) (Acute) Subjective: Patient with no acute events overnight per self and per nursing report. She notes her urinary frequency has normalized and she has resolution of previous chills. Discussed current results which included E. coli urinary tract infection with plan to transition to oral antibiotic therapy. Reviewed that possible chest x-ray findings secondary to left-sided breast implant versus pneumonia with plan to continue to treat both possible pneumonia and her urinary tract infection. Discussed options of care and patient amenable to discharge to home. Discussed that COVID test would be pending and we would need to continue quarantine at home pending these results and patient noted understanding. Only complaint is that patient made the mistake of drinking a chocolate supplemental shake and this did cause her to have some loose stools as she notes she has an intolerance to chocolate which frequently causes her diarrhea. Patient denies fevers, chills, nausea, emesis, abdominal pain, chest pain or dyspnea. Objective: Physical Examination: General: awake, alert, oriented x 3 and cooperative, seated upright in the COVID unit bed, NAD. Skin: normal color, turgor, no icterus, cyanosis occasional very staged ecchymoses to the extremities. HEENT: AT/NC, EOMI, PERRLA, MMM. Lungs: Diminished breath sounds, greater bases, no evidence of distress, no rales, ronchi or wheezing. Heart: Regular rate and rhythm; no gallop, rub audible. Abdomen: soft, NTTP, ND, normalized BS. Extremities: no cyanosis, clubbing, edema. Neurological: patient awake, alert, oriented x 3; cognitive function appears baseline intact; pupils equally reactive to light and accomodation; cranial nerves II-XII grossly normal, moving all 4 extremities, no focal deficits, strength improving, remains mildly to moderately globally decreased. Psychiatric: affect appears improved, amenable to discharge, no acute evidence of depressive or anxiety feelings. Vitals/I&O's: Vital Signs Temp Pulse Resp BP Pulse Ox 98.2 F 76 16 155/97 H 97 02/16/20 07:34 02/16/20 07:34 02/16/20 07:34 02/16/20 07:34 02/16/20 07:34 Oxygen Flow Rate (L/min) 2 Oxygen Delivery Method Room Air Weight: 145 lb 4.554 oz Body Mass Index (BMI) 25.7 Intake and Output for Last 24 Hours 02/14/20 02/15/20 02/16/20 23:59 23:59 23:59 Intake Total 220 / 320 3625 / 3625 903.33 / 903.33 Output Total 700 / 700 300 / 300 Balance 220 / 320 2925 / 2925 603.33 / 603.33 Microbiology Past 72 Hours 02/14/20 11:19 Urine Catheter - Catheter Urine Culture - Preliminary Presumptive E. coli 02/14/20 11:19 Urine Catheter - Catheter Streptococcus pneumoniae Antigen (M - Final 02/14/20 11:19 Urine Catheter - Catheter Legionella Antigen - Final 02/14/20 12:40 Mucosa - Nose Respiratory Panel (PCR) - Final 02/14/20 12:40 Mucosa - Nose Influenza Types A,B Direct FA (GIFTY) - Final Laboratory Results 02/15/20 13:35: D-Dimer Quant (PE/DVT) 0.76 H* 02/16/20 06:12: D-Dimer Quant (PE/DVT) 0.64 H* Current Medications Acetaminophen (Tylenol) 650 mg PO Q6H PRN PRN PRN Reason: Pain Score 1-10/Temp > 100.7 F Last Admin: 02/15/20 09:19 Dose: 650 mg Documented by: Hydrocodone Bitart/Acetaminophen ([place] 5mg-325mg) 1 tablet PO Q8H PRN PRN PRN Reason: 4-10/10 Last Admin: 02/15/20 20:41 Dose: 1 tablet Documented by: Al Hydroxide/Mg Hydroxide (Mylanta Ii) 30 ml PO Q6H PRN PRN PRN Reason: Gastric Burning Albuterol Sulfate (Ventolin Aerosols) 2.5 mg INHALATION Q4H PRN PRN PRN Reason: Dyspnea, wheezing Alprazolam (Xanax) 0.25 mg PO BID PRN PRN Reason: ANXIETY Last Admin: 02/15/20 20:41 Dose: 0.25 mg Documented by: Aspirin (Ecotrin) 81 mg PO DAILY [facility] Last Admin: 02/15/20 09:21 Dose: 81 mg Documented by: Azithromycin (Zithromax) 500 mg PO Q24 [facility] Last Admin: 02/15/20 09:20 Dose: 500 mg Documented by: Citalopram Hydrobromide (Celexa) 20 mg PO DAILY [facility] Last Admin: 02/15/20 09:19 Dose: 20 mg Documented by: Clopidogrel Bisulfate (Plavix) 75 mg PO DAILY [facility] Last Admin: 02/15/20 09:20 Dose: 75 mg Documented by: Dextrose (D50w Syringe) 0 gm IV X1 PRN; Protocol PRN Reason: Hypoglycemia Famotidine (Pepcid) 20 mg PO DAILY PRN PRN Reason: ACID REFLUX Furosemide (Lasix) 20 mg PO QODAY@1000 [facility] Last Admin: 02/15/20 09:18 Dose: 20 mg Documented by: Gemfibrozil (Lopid) 600 mg PO DAILY [facility] Last Admin: 02/15/20 11:36 Dose: 600 mg Documented by: Glucagon () 1 mg IM .X1 PRN PRN Reason: Hypoglycemia Guaifenesin (Robitussin) 20 ml PO Q4H PRN PRN PRN Reason: COUGH Heparin Sodium (Porcine) (Heparin Na) 5,000 unit SC Q12 [facility] Last Admin: 02/15/20 20:41 Dose: 5,000 unit Documented by: Hydralazine HCl (Apresoline Iv) 10 mg IV Q4H PRN PRN PRN Reason: SBP > 160 Last Admin: 02/15/20 09:00 Dose: 10 mg Documented by: Sodium Chloride () 1,000 mls @ 100 mls/hr IV .Q10H [facility] Last Admin: 02/16/20 05:12 Dose: 100 mls/hr Documented by: Ceftriaxone Sodium 2 gm/ (Sodium Chloride) 50 mls @ 100 mls/hr IV Q24 [facility] Last Infusion: 02/15/20 09:48 Dose: Infused Documented by: Lactobacillus Acidophilus (Acidophilus) 1 tablet PO TID [facility] Last Admin: 02/16/20 05:12 Dose: 1 tablet Documented by: Losartan Potassium (Cozaar) 25 mg PO DAILY [facility] Last Admin: 02/15/20 09:18 Dose: 25 mg Documented by: Magnesium Hydroxide (Milk Of Magnesia) 30 ml PO DAILY PRN PRN PRN Reason: Constipation Melatonin (Melatonin) 3 mg PO QHS PRN PRN PRN Reason: INSOMNIA Meloxicam (Mobic) 15 mg PO DAILY [facility] Last Admin: 02/15/20 11:36 Dose: 15 mg Documented by: Metoprolol Succinate (Toprol Xl (Beta Alessandra)) 50 mg PO DAILY [facility] Last Admin: 02/15/20 09:19 Dose: 50 mg Documented by: Morphine Sulfate () 2 mg IV Q3H PRN PRN PRN Reason: Pain Score 6-10/10 Nitroglycerin (Nitrostat) 0.4 mg SUBLINGUAL Q5M PRN PRN Reason: CARDIAC/CHEST PAIN Ondansetron HCl (Zofran) 4 mg IV Q8H PRN PRN PRN Reason: NAUSEA/VOMITING Last Admin: 02/15/20 08:21 Dose: 4 mg Documented by: Pregabalin (Lyrica) 50 mg PO DAILY [facility] Last Admin: 02/15/20 09:18 Dose: 50 mg Documented by: Prochlorperazine Edisylate (Compazine Iv) 5 mg IV Q4H PRN PRN PRN Reason: Breakthrough nausea/vomiting Psyllium Hydrophilic Mucilloid (Metamucil) 1 packet PO DAILY PRN PRN PRN Reason: Constipation Senna/Docusate Sodium (Senokot-S, Nayely-Colace) 2 tablet PO BID PRN PRN PRN Reason: Constipation Sodium Chloride () 10 - 40 ml IV UD PRN PRN Reason: SALINE FLUSH Throat Lozenges (Cepacol Sore Throat Lozenge) 1 lozenge MUCOUS MEM Q2H PRN PRN PRN Reason: SORE THROAT STROKE Vital Signs/Narrative: Vital Signs Temp Pulse Resp BP Pulse Ox 02/16/20 07:34 98.2 F 76 16 155/97 H 97 02/16/20 05:10 97.9 F 78 16 141/81 H 92 Medical Necessity - Tobacco Use Smoking Status: Former smoker Tobacco Use: Non-smoker Assessment/Plan All Active Problems (Last Reviewed 11/29/19 @ 14:53 by Tesha Kingsley) Pneumonia (Acute) UTI (urinary tract infection) (Acute) Pericardial effusion without cardiac tamponade (Resolved 06/14/19) Shock, cardiogenic (Resolved 06/13/19) Acute OR, anterior wall, initial episode of care (Resolved) The patient is a 79 y/o F w/ PMHx: Chronic anemia, PAF, Former Tobacco use, Hx Breast CA s/p mastectomy, CKD stage III/IV, Anxiety and Depression, IBS, GERD, Hx pericardial effusion s/p pericardial window, Hx STEMI, CAD s/p PCI, HTN, HLD, Chronic back pain with spinal stenosis who presents to [facility] ED on 02/14/20 with history of several days of significant fatigue, malaise, poor oral intake with chills, elevated temperatures at home (100.4) but no specific cough or dyspnea with recent nausea and dry heaves and an episode of loose stools on day of ED presentation in addition to a frontal throbbing headache rated at 5-10 in severity history of prior similar headaches but not improving. 1. Acute Malaise, Nausea, Emesis, Diarrhea, Fever, Chills with Incidentally noted Hypoxia, L Midlung Infiltrate Pneumonia possible secondary to Acute Viral Syndrome, COVID-19: Patient with lymphopenia, CXR with new focus of increased markings in left midlung, although urinalysis notable with concern for UTI concurrently, admitted to the COVID unit, maintained on oxygen with wean as tolerated to room air, continue MDI inhaler, maintained on IV Rocephin and Azithromycin, HOB, IS parameters. Repeat 02/15/2020 a.m. chest x-ray with hazy opacification left perihilar lung exaggerated by breast prosthesis. 02/15/2020 CBC with WC 7.7, hemoglobin 10.8, platelet 117 with no severe left shift and improvement of prior absolute lymphopenia noted. COVID testing pending. Additional labs obtained including normal ferritin 42, normal LDH is 172, elevated CRP 27.10, elevated procalcitonin 6.10, negative respiratory panel, negative urine antigens, pending urine culture. D-dimer also obtained and noted to be 0.76 however when age-adjusted is normal. Given possibility of pneumonia as well as #2 we will transition given patient readiness for discharge with no oxygen supplemental needs to oral renally dosed Levaquin regimen. 2. Acute E. Coli Urinary Tract Infection: Likely cause of presentation, treated with judicious IVFs given #1, monitor I/Os, continue IV Rocephin with planned transition to renally dosed Levaquin to treat concurrent possible #1, pneumonia concurrently. 3. Chronic pain syndrome: Patient with chronic pain and upon initial presentation given symptoms PRN agents had been held however will resume now as patient's noting discomfort and mildly anxious with repeat EKG with no acute evidence of ischemia, requesting her [place]. 4. Pericardial Effusion: Onset following 06/14/19 catheterization, ECHO at that time w/ ? gelatinous substance adhered to the epicardium with a small liquid pericardial effusion with possible perforation either from the wire or from her stenting w/ emergent transfer to [facility]. Patient underwent repeat catheterization at [facility] w/ no overt bleeding from her coronary arteries w/ successful percutaneous pericardiocentesis with subsequent drainage. 5. PAF: Most recent echocardiogram 07/09/2019 with EF 60%, stage I diastolic dysfunction, mild TBI, RVSP 38 mmHg, mild pulmonary hypertension, had noted to have this transiently at [facility] and had been placed on anticoagulant therapy at that time, currently maintained on aspirin, Plavix, metoprolol. 5. Chronic anemia: Admission hemoglobin 11.6, baseline appears 10-11, 02/15/20 HGb 10.8, stable, urine plan discharge patient preference for lab holiday. 6. CAD, Hx STEMI: s/p 06/14/19 PTCA/LUTHER Mid LAD with thrombectomy, currently maintained on aspirin, Plavix, losartan, metoprolol, current list without statin therapy. Presentation troponin 0.022, EKG with no acute evidence of ischemia and repeat given anxiety obtained but similar to prior. 7. Hypertension: Continue home regimen including Lasix, losartan, metoprolol, Lasix every other day, PRN hydralazine. 8. Hyperlipidemia: Not on statin therapy but no allergy specifically listed, currently maintained on gemfibrozil. 9. Anxiety and depression: We will continue patient home low-dose alprazolam as well as citalopram. 10. Chronic Kidney Disease Stage III/IV: Admission BUN/Cr 24/1.75, baseline renal function 1.5-1.9, similar, 02/15/20 BUN/Cr 22/1.47, given planned discharge patient preference for lab holiday and renal function at baseline. 11. History of breast cancer: Status post left sided mastectomy, remission. 12. GERD: We will maintain on famotidine. 13. DVT prophylaxis: SCDs, heparin. 14. CODE status: Patient HCPOA is her and secondary is her daughter who is a nurse and living will is currently in place. Full Code status.
[2020-02-16 09:27] VITALS: PULSE 76
[2020-02-16] MEDS: Aspirin E.C. 81 MG Tablet PO (09:27)
[2020-02-16] MEDS: Meloxicam 15 MG Tablet PO (09:27)
[2020-02-16] MEDS: Citalopram 20 MG Tablet PO (09:27)
[2020-02-16] MEDS: Metoprolol(XL)Succ 50 MG Tablet PO (09:27)
[2020-02-16] MEDS: Clopidogrel Bisulfate 75 MG Tablet PO (09:27)
[2020-02-16] MEDS: Losartan Potassium 25 MG Tablet PO (09:27)
[2020-02-16] MEDS: Azithromycin 250 MG Tablet 500 MG PO (09:27)
[2020-02-16] MEDS: Gemfibrozil 600 MG Tablet PO (09:27)
[2020-02-16] MEDS: Pregabalin 50 MG Capsule PO (09:28)
[2020-02-16] MEDS: Heparin Injection (Vial) 5,000 UNIT/ML VIAL 5000 UNIT SC (09:28)
--- NOTE | 2020-02-16 10:06 | PCM.DC ---
- Discharge Diagnoses Current Active Problems: Current Active and Chronic Problems (Last Reviewed 11/29/19 @ 14:53 by Tesha Kingsley) 1. Acute Malaise, Nausea, Emesis, Diarrhea, Fever, Chills with Incidentally noted Hypoxia, L Midlung Infiltrate (Lower suspicion) versus Artifact with L breast implant versus Possible Acute Viral Syndrome, COVID-19 (Lower suspicion), more likely secondary to #2 2. Acute E. Coli Urinary Tract Infection 3. Chronic pain syndrome 4. Hx of Pericardial Effusion 5. PAF 6. Chronic anemia 7. CAD, Hx STEMI 8. Hypertension 9. Hyperlipidemia 10. Anxiety and depression 11. Chronic Kidney Disease Stage III/IV 12. History of breast cancer 13. GERD You will use the following diet at home:: Cardiac, Renal (restricted protein/sodium) Your food should be the consistency of: Regular Your liquids should be the consistency of: Regular/Thin Discharge Activity: - - Encourage routine activity in your home with assist devices as needed. Please maintain home quarantine pending COVID testing results and also for your safety continue measures requested per the [facility]. Call your doctor if you observe: Fever of 101 or Higher, Inability to urinate, Inability to have a bowel movement, Shortness of breath, Dizziness, Fainting spells, Chest pain, Uncontrolled pain Instructions: Urinary Tract Infections in Women, Understanding Urinary Tract Infections (UTIs) Additional Instructions: Urinary Tract Infection Discharge Instructions: (1) Please continue the renally dosed levaquin as written. This will also treat any possible pneumonia, although we had felt likely chest x-ray findings were associated with your implant. (2) Please have follow-up basic metabolic panel with your primary care physician at follow-up. COVID-19 testing pending upon discharge. Please contact the [facility] regarding your results if you have not heard by 02/18/20 for an update. COVID-19 DISCHARGE PLAN: . General discharge information: ?Patient needs to be able to call for assistance if worsens. ?Household members must have access to PPE and willing to adhere to precaution measures at home. ?The patient needs to have access to a separate bedroom and bathroom. ?Must be able to be transported by private vehicle and putaway driver abide personal PPE. Home going instructions: ?Patient to continue similar isolation as in hospital and those also in the home to continue precautions until isolation complete or if COVID-19 testing is negative. ?Patient must continue twice daily temperature checks, in the AM and evening and notify the health department of any changes (If COVID-19 positive or their primary care if pending testing). Transmission-based Precaution Timeline: ?Patients with a confirmed or high suspicion of COVID-19 should remain under home isolation precautions for 7 days or until 72 hours after complete resolution of fever and symptoms (cough, dyspnea, myalgia, sore throat) without antipyretic medication. ?Further testing is not required beyond this unless there was noted organ dysfunction. ?If COVID-19 testing is pending upon discharge, [facility] ([facility]) will contact you if the result is positive. Please contact hospital for results if you have not heard from [facility] by 02/18/20. Follow-up Care: ?The primary care should be informed of a COVID-19 positive test if resulted while in the hospital. ?Please consider early virtual primary visit follow-up upon their discharge and follow-up to review temperature journal and symptom review, especially if testing results positive. Allergies/Adverse Reactions: Allergies Sulfa (Sulfonamide Antibiotics) Allergy (Verified 02/14/20 10:32) Itching soap Adverse Reaction (Intermediate, Verified 02/14/20 10:32) Pre-operative: Itching gabapentin [From Neurontin] Adverse Reaction (Verified 02/14/20 10:32) Nausea Medications to take at Discharge Pregabalin [Lyrica] 50 mg PO DAILY 06/13/19 citalopram 20 mg tablet 20 mg PO DAILY 06/20/19 aspirin 81 mg tablet,delayed release 81 mg PO DAILY #30 tab 06/22/19 hydrocodone 5 mg-acetaminophen 325 mg tablet 1 tab PO Q8H PRN tab 06/22/19 meloxicam 15 mg tablet 15 mg PO DAILY 06/29/19 gemfibrozil 600 mg tablet 600 mg PO DAILY tab 07/23/19 metoprolol succinate 50 mg tablet,extended release 24 hr 50 mg PO DAILY #90 tab 09/25/19 alprazolam 0.25 mg tablet 0.25 mg PO BID PRN 10/22/19 furosemide 40 mg tablet 20 mg PO Q OTHER DAY tab 10/22/19 clopidogrel 75 mg tablet 75 mg PO DAILY #90 tab 11/02/19 losartan 25 mg tablet 25 mg PO DAILY #30 tab 11/09/19 coenzyme Q10 100 mg capsule 100 mg PO DAILY 11/29/19 famotidine 20 mg tablet 20 mg PO BID PRN tab 11/29/19 lactobacillus combination no.9 4 billion cell capsule 4,000 mmu cells PO DAILY 11/29/19 Levofloxacin [Levaquin] 750 mg PO QODAY #3 tab 02/16/20 The following prescriptions were given: Levofloxacin [Levaquin] 750 mg PO QODAY #3 tab Transmission Status: Pending to [facility] Primary Care Physician: Candis Lawler MD [Primary Care Provider] - Please follow up with your Primary Care Physician in: Please follow-up within 3-5 days to review admission. Test Results: Test results from this visit will be discussed in further detail at your follow-up appointment, if applicable. Proposed Discharge Date: 02/16/20
[2020-02-16 10:40] VITALS: O2SAT 94; O2SAT 97
--- NOTE | 2020-02-16 10:48 | DS.PCM_ITS ---
Discharge Date and Diagnosis - Problem List Patient Problems: Active and Suspected Problems (Last Reviewed 11/29/19 @ 14:53 by Tesha Kingsley) Pneumonia (Acute) UTI (urinary tract infection) (Acute) Date of Admission: 02/14/20 Date of Discharge: 02/16/20 - Primary Discharge Diagnosis 1. Acute Malaise, Nausea, Emesis, Diarrhea, Fever, Chills with Incidentally noted Hypoxia, L Midlung Infiltrate (Lower suspicion) versus Artifact with L breast implant versus Possible Acute Viral Syndrome, COVID-19 (Lower suspicion), more likely secondary to #2 2. Acute E. Coli Urinary Tract Infection 3. Chronic pain syndrome 4. Hx of Pericardial Effusion 5. PAF 6. Chronic anemia 7. CAD, Hx STEMI 8. Hypertension 9. Hyperlipidemia 10. Anxiety and depression 11. Chronic Kidney Disease Stage III/IV 12. History of breast cancer 13. GERD - Secondary Discharge Diagnosis Chronic Problems (Last Reviewed 11/29/19 @ 14:53 by Tesha Kingsley) HLD (hyperlipidemia) (Chronic) Anxiety and depression (Chronic) Status post pericardiocentesis (Chronic 06/14/19) History of acute anterior wall myocardial infarction (Chronic 06/13/19) Atherosclerosis of coronary artery of [place] heart without angina pectoris (Chronic) Segmented LV systolic dysfunction- Moderate LVEF: by LV gram 50 % Elevated Left Ventricular End Diastolic Pressure Single vessel CAD of the MID LAD Non obstructive coronary arteries Successful PTCA/LUTHER Mid LAD with thrombectome, utilizing a 2.25 x 32 Promus Synergy, followed immediately distally with a 2.25 x 8 Promus Synergy x 2, followed immediately upstream from initial stent with a 2.5 x 32 Promus Synergy; 100%-->0%, no dissection. Successful emergent IABP for cardiogenic shock and hypoxia. Stented coronary artery (Chronic 06/14/19) Segmented LV systolic dysfunction- Moderate; LVEF: by LV gram 50 %; Elevated Left Ventricular End Diastolic Pressure; 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 Successful emergent IABP for cardiogenic shock and hypoxia. Spinal stenosis (Chronic) IBS (irritable bowel syndrome) (Chronic) Benign essential HTN (Chronic) Hospital Course and Treatment Summary of Care Provided: The patient is a 79 y/o F w/ PMHx: Chronic anemia, PAF, Former Tobacco use, Hx Breast CA s/p mastectomy, CKD stage III/IV, Anxiety and Depression, IBS, GERD, Hx pericardial effusion s/p pericardial window, Hx STEMI, CAD s/p PCI, HTN, HLD, Chronic back pain with spinal stenosis who presented to the [facility] ED on 02/14/20 with history of several days of significant fatigue, malaise, poor oral intake with chills, elevated temperatures at home (100.4) but no specific cough or dyspnea with recent nausea and dry heaves and an episode of loose stools on day of ED presentation in addition to a frontal throbbing headache rated at 5-10 in severity history of prior similar headaches but not improving. Patient with lymphopenia, CXR with new focus of increased markings in left midlung, although urinalysis notable with concern for UTI concurrently, admitted to the COVID unit, maintained on oxygen with wean as tolerated to room air, continue MDI inhaler, maintained on IV Rocephin and Azithromycin, HOB, IS parameters. Repeat 02/15/2020 a.m. chest x-ray with hazy opacification left perihilar lung exaggerated by breast prosthesis. Additional labs obtained including normal ferritin 42, normal LDH is 172, elevated CRP 27.10, elevated procalcitonin 6.10, negative respiratory panel, negative urine antigens, E. Coli evidence UTI on urine culture. D-dimer also obtained and noted to be 0.76 however when age- adjusted is normal. Given possibility of pneumonia as well as evidence Acute E. Coli UTI, likely etiology for her presentation given notable improvement, patient transitioned at discharge to oral renally dosed Levaquin regimen. Encouraged follow-up with her PCP and BMP at follow-up given medication usage as noted. Discussed discharge plan also with patient Daughter. Noted COVID testing still pending at discharge with instructions for care given prior to discharge. Patient Problems: Active and Suspected Problems (Last Reviewed 11/29/19 @ 14:53 by Tesha Kingsley) Pneumonia (Acute) UTI (urinary tract infection) (Acute) - Physical Exam Vitals/I&O's: Vital Signs Temp Pulse Resp BP Pulse Ox 98.2 F 76 16 155/97 H 97 02/16/20 07:34 02/16/20 09:27 02/16/20 07:34 02/16/20 07:34 02/16/20 10:40 Oxygen Flow Rate (L/min) 2 Oxygen Delivery Method Room Air Weight: 145 lb 4.554 oz Body Mass Index (BMI) 25.7 Intake and Output for Last 24 Hours 02/14/20 02/15/20 02/16/20 23:59 23:59 23:59 Intake Total 220 / 320 3625 / 3625 1391.66 / 1391.66 Output Total 700 / 700 300 / 300 Balance 220 / 320 2925 / 2925 1091.66 / 1091.66 Microbiology Past 72 Hours 02/14/20 11:19 Urine Catheter - Catheter Urine Culture - Final Presumptive E. coli 02/14/20 11:19 Urine Catheter - Catheter Streptococcus pneumoniae Antigen (M - Final 02/14/20 11:19 Urine Catheter - Catheter Legionella Antigen - Final 02/14/20 12:40 Mucosa - Nose Respiratory Panel (PCR) - Final 02/14/20 12:40 Mucosa - Nose Influenza Types A,B Direct FA (GIFTY) - Final Laboratory Results 02/15/20 13:35: D-Dimer Quant (PE/DVT) 0.76 H* 02/16/20 06:12: D-Dimer Quant (PE/DVT) 0.64 H* Current Medications Acetaminophen (Tylenol) 650 mg PO Q6H PRN PRN PRN Reason: Pain Score 1-10/Temp > 100.7 F Last Admin: 02/15/20 09:19 Dose: 650 mg Documented by: Hydrocodone Bitart/Acetaminophen ([place] 5mg-325mg) 1 tablet PO Q8H PRN PRN PRN Reason: 4-1010 Last Admin: 02/15/20 20:41 Dose: 1 tablet Documented by: Al Hydroxide/Mg Hydroxide (Mylanta Ii) 30 ml PO Q6H PRN PRN PRN Reason: Gastric Burning Albuterol Sulfate (Ventolin Aerosols) 2.5 mg INHALATION Q4H PRN PRN PRN Reason: Dyspnea, wheezing Alprazolam (Xanax) 0.25 mg PO BID PRN PRN Reason: ANXIETY Last Admin: 02/15/20 20:41 Dose: 0.25 mg Documented by: Aspirin (Ecotrin) 81 mg PO DAILY [facility] Last Admin: 02/16/20 09:27 Dose: 81 mg Documented by: Azithromycin (Zithromax) 500 mg PO Q24 [facility] Last Admin: 02/16/20 09:27 Dose: 500 mg Documented by: Citalopram Hydrobromide (Celexa) 20 mg PO DAILY [facility] Last Admin: 02/16/20 09:27 Dose: 20 mg Documented by: Clopidogrel Bisulfate (Plavix) 75 mg PO DAILY [facility] Last Admin: 02/16/20 09:27 Dose: 75 mg Documented by: Dextrose (D50w Syringe) 0 gm IV X1 PRN; Protocol PRN Reason: Hypoglycemia Famotidine (Pepcid) 20 mg PO DAILY PRN PRN Reason: ACID REFLUX Furosemide (Lasix) 20 mg PO QODAY@1000 [facility] Last Admin: 02/15/20 09:18 Dose: 20 mg Documented by: Gemfibrozil (Lopid) 600 mg PO DAILY [facility] Last Admin: 02/16/20 09:27 Dose: 600 mg Documented by: Glucagon () 1 mg IM .X1 PRN PRN Reason: Hypoglycemia Guaifenesin (Robitussin) 20 ml PO Q4H PRN PRN PRN Reason: COUGH Heparin Sodium (Porcine) (Heparin Na) 5,000 unit SC Q12 [facility] Last Admin: 02/16/20 09:28 Dose: 5,000 unit Documented by: Hydralazine HCl (Apresoline Iv) 10 mg IV Q4H PRN PRN PRN Reason: SBP > 160 Last Admin: 02/15/20 09:00 Dose: 10 mg Documented by: Ceftriaxone Sodium 2 gm/ (Sodium Chloride) 50 mls @ 100 mls/hr IV Q24 [facility] Last Infusion: 02/16/20 10:19 Dose: Infused Documented by: Lactobacillus Acidophilus (Acidophilus) 1 tablet PO TID [facility] Last Admin: 02/16/20 05:12 Dose: 1 tablet Documented by: Losartan Potassium (Cozaar) 25 mg PO DAILY [facility] Last Admin: 02/16/20 09:27 Dose: 25 mg Documented by: Magnesium Hydroxide (Milk Of Magnesia) 30 ml PO DAILY PRN PRN PRN Reason: Constipation Melatonin (Melatonin) 3 mg PO QHS PRN PRN PRN Reason: INSOMNIA Meloxicam (Mobic) 15 mg PO DAILY [facility] Last Admin: 02/16/20 09:27 Dose: 15 mg Documented by: Metoprolol Succinate (Toprol Xl (Beta Alessandra)) 50 mg PO DAILY [facility] Last Admin: 02/16/20 09:27 Dose: 50 mg Documented by: Morphine Sulfate () 2 mg IV Q3H PRN PRN PRN Reason: Pain Score 6-10/10 Nitroglycerin (Nitrostat) 0.4 mg SUBLINGUAL Q5M PRN PRN Reason: CARDIAC/CHEST PAIN Ondansetron HCl (Zofran) 4 mg IV Q8H PRN PRN PRN Reason: NAUSEA/VOMITING Last Admin: 02/15/20 08:21 Dose: 4 mg Documented by: Pregabalin (Lyrica) 50 mg PO DAILY [facility] Last Admin: 02/16/20 09:28 Dose: 50 mg Documented by: Prochlorperazine Edisylate (Compazine Iv) 5 mg IV Q4H PRN PRN PRN Reason: Breakthrough nausea/vomiting Psyllium Hydrophilic Mucilloid (Metamucil) 1 packet PO DAILY PRN PRN PRN Reason: Constipation Senna/Docusate Sodium (Senokot-S, Nayely-Colace) 2 tablet PO BID PRN PRN PRN Reason: Constipation Sodium Chloride () 10 - 40 ml IV UD PRN PRN Reason: SALINE FLUSH Throat Lozenges (Cepacol Sore Throat Lozenge) 1 lozenge MUCOUS MEM Q2H PRN PRN PRN Reason: SORE THROAT Discharge Activity: - - Encourage routine activity in your home with assist dev ices as needed. Please maintain home quarantine pending COVID testing results and also for your safety continue measures requested per the [facility]. Call your doctor if you observe: Fever of 101 or Higher, Inability to urinate, Inability to have a bowel movement, Shortness of breath, Dizziness, Fainting spells, Chest pain, Uncontrolled pain Home Medications: Medications to take at Discharge Pregabalin [Lyrica] 50 mg PO DAILY 06/13/19 citalopram 20 mg tablet 20 mg PO DAILY 06/20/19 aspirin 81 mg tablet,delayed release 81 mg PO DAILY #30 tab 06/22/19 hydrocodone 5 mg-acetaminophen 325 mg tablet 1 tab PO Q8H PRN tab 06/22/19 meloxicam 15 mg tablet 15 mg PO DAILY 06/29/19 gemfibrozil 600 mg tablet 600 mg PO DAILY tab 07/23/19 metoprolol succinate 50 mg tablet,extended release 24 hr 50 mg PO DAILY #90 tab 09/25/19 alprazolam 0.25 mg tablet 0.25 mg PO BID PRN 10/22/19 furosemide 40 mg tablet 20 mg PO Q OTHER DAY tab 10/22/19 clopidogrel 75 mg tablet 75 mg PO DAILY #90 tab 11/02/19 losartan 25 mg tablet 25 mg PO DAILY #30 tab 11/09/19 coenzyme Q10 100 mg capsule 100 mg PO DAILY 11/29/19 famotidine 20 mg tablet 20 mg PO BID PRN tab 11/29/19 lactobacillus combination no.9 4 billion cell capsule 4,000 mmu cells PO DAILY 11/29/19 Hydrocodone Bitart/Apap 5-325 [[place] 5/325] 1 tab PO Q8H PRN PRN 5 Days #15 tab 02/16/20 Levofloxacin [Levaquin] 750 mg PO QODAY #3 tab 02/16/20 Following Prescrptions Were Given to Patient: Levofloxacin [Levaquin] 750 mg PO QODAY #3 tab Transmission Status: Received by [facility] Hydrocodone Bitart/Apap 5-325 [[place] 5/325] 1 tab PO Q8H PRN PRN 5 Days #15 tab PRN Reason: Transmission Status: Received by [facility] Primary Care Physician: Candis Lawler MD [Primary Care Provider] - Please follow up with your Primary Care Physician in: Please follow-up within 3- 5 days to review admission. Patient Instructions: Urinary Tract Infections in Women, Understanding Urinary Tract Infections (UTIs) Disposition: Home Minutes spent on discharge:: 35 Patient Condition:: Fair Medical Necessity - Tobacco Use Smoking Status: Former smoker Tobacco Use: Non-smoker Meaningful Use Info Meaningful Use Diagnoses (Choose all that apply): None applicable Inpatient E&M: 18070 [facility]
--- NOTE | 2020-02-16 11:43 | NURSING ---
called daughter about discharge info.
--- NOTE | 2020-02-18 14:02 | CASEMGMT ---
ISAMAR BURGESS Discharge Follow-up Phone Call: AMANDAJavier: 10 Strata: 3 Call Date: 02/18/2020 Discharge Date: 02/16/2020 Time of Call: 1400 Duration: 3 min Admitting Diagnosis: PNA, hypoxia, UTI, Covid neg ISAMAR BURGESS completed follow-up phone call after recent hospitalization. Patient states she is doing well and had no questions regarding discharge instructions. Patient was able to fill prescriptions without any issues. Patient has follow-up appt with PCP on Tuesday at 330. Patient denied any further needs or concerns at this time.
== END 2020-02-16 12:58 | disposition home or self-care (01) | DRG 689 ==
LOC: ED 11:52 → MS3 13:06 → ICU 14:13 → MS2 02-15 11:44
PROVIDERS: Admitting Provider Family Medicine; Emergency Provider Emergency Medicine; PCP Family Medicine; Visit Provider Family Medicine
DX: N39.0 Urinary tract infection, site not specified (principal); J18.9 Pneumonia, unspecified organism; N18.4 Chronic kidney disease, stage 4 (severe); B96.20 Unspecified Escherichia coli [E. coli] as the cause of diseases classified elsewhere; R09.02 Hypoxemia; R53.81 Other malaise; R19.7 Diarrhea, unspecified; R11.2 Nausea with vomiting, unspecified; G89.4 Chronic pain syndrome; I48.0 Paroxysmal atrial fibrillation; D64.9 Anemia, unspecified; I25.2 Old myocardial infarction; I25.10 Atherosclerotic heart disease of native coronary artery without angina pectoris; I12.9 Hypertensive chronic kidney disease with stage 1 through stage 4 chronic kidney disease, or unspecified chronic kidney disease; E78.5 Hyperlipidemia, unspecified; F32.9 Major depressive disorder, single episode, unspecified; F41.9 Anxiety disorder, unspecified; K21.9 Gastro-esophageal reflux disease without esophagitis; Z85.3 Personal history of malignant neoplasm of breast; Z79.82 Long term (current) use of aspirin; Z79.899 Other long term (current) drug therapy; Z87.891 Personal history of nicotine dependence; Z79.02 Long term (current) use of antithrombotics/antiplatelets
CPT/HCPCS: 36415; 71045; 80053; 81001; 82728; 83605; 83615; 83735; 84145; 84484; 85025; 85379; 85610; 85730; 86140; 87040; 87086; 87088; 87186; 87449; 87633; 87635; 87804; 93005; 99251; 99285; J7030; J7040; A4216; G0463; J0696; J2405; U0004

== ENCOUNTER → 2020-02-20 | Outpatient (CLI) | payer MEDICARE, SELFPAY ==
[2019-06-14 10:04] VITALS: BMI 28.0
[2020-02-14 14:41] VITALS: BMI 25.7
[2020-02-20 18:10] LABS: Albumin, Serum 3.4 g/dL (3.2-5.0); BUN 36 mg/dL (7-18); BUN/Creat Ratio 11.8 RATIO (10-20); Calcium,Total 8.5 mg/dL (8.5-10.1); Chloride 107 mmol/L (98-107); Creatinine, Serum 3.04 mg/dL (0.55-1.02); EST Glomerular Filtration Rate 16 mL/min (>60); Est Glom Filt Rate - Afr Amer 19 mL/min (>60); Glucose 113 mg/dL (74-106); Phosphorus 4.3 mg/dL (2.5-4.9); Potassium 3.8 mmol/L (3.5-5.1); Sodium Level 139 mmol/L (136-145)
== END | disposition home or self-care (01) ==
LOC: MTLAB 16:34
PROVIDERS: PCP Family Medicine; Referring Provider Family Medicine; Visit Provider Family Medicine
DX: I10 Essential (primary) hypertension (principal)
CPT/HCPCS: 36415; 80069

== ENCOUNTER → 2020-03-04 | Outpatient (CLI) | payer MEDICARE, SELFPAY ==
[2019-06-14 10:04] VITALS: BMI 28.0
[2020-02-14 14:41] VITALS: BMI 25.7
--- OUTSIDE RECORDS SUMMARY | 2020-08-05 09:22 | XMS RPT_ITS | CCD ---
:1940 External Reference #:[id number] Author Organization [employer] Care Team Providers Name Role Phone PROVIDER Admitting Unavailable PROVIDER Attending Unavailable Results Result Name Value Range Unit Interpretation Flag Date Location progress on 2019-05 PROGRESS HNO ID: [id number] Normal 06-17-2019 Hawa Hernandez Author: [facility] Service: Pulmonary Disease ([id number]) Author Type: Physician Type: Progress Notes Filed: 06/17/2019 9:31 AM Note Text: CRITICAL CARE PROGRESS NOTE SERVICE DATE: June 17, 2019 SERVICE TIME: 9:29 AM Admission Date: 06/14/2019 AGE: [age] year old LOS: 3 days REASON FOR ICU ADMISSION: STEMI Pericardial effusion Hypertension Irritable Bowel Syndrome Spinal stenosis Subjective Patient is sleeping comfortably in bed. I did not wake the p atient. Objective 24 hour Intake AND Output: Intake/Output Summary (Last 24 hours) at 06/17/2019 0929 Last data filed at 06/17/2019 0600 Gross per 24 hour Intake 640 ml Output 550 ml Net 90 ml PHYSICAL EXAM: VITAL SIGNS: BP 144/84 Pulse 86 Temp 36 ?C (96.8 ?F) (Te mporal) Resp 25 Ht 167.6 cm (5' 6) Wt 78.4 kg (172 lb 13.5 oz) SpO2 95% BMI 27.90 kg/m? RRR Clear to auscultation without wheezing bilaterally anteriorl y. Scattered bowel sounds, soft, nondistended. No peripheral edema. Dry, intact skin with fair turgor. Lines, Drains, and Airways Line Central Line Triple Lumen 06/14/19 Right Neck 3 days Peripheral 06/14/19 1200 Admission to Hospital Right Forearm 2 days Drain External Collection Device 06/16/19 2000 less than 1 day INPATIENT MEDICATIONS: Current Facility-Administered Medications Medication Dose Route Frequency - perflutren lipid microspheres 1.1 mg/mL 1.3 mL injection ( DEFINITY) 1.3 mL INTRAVENOUS DIRECTED PRN - acetaminophen 650 mg tab(s) (TYLENOL) 650 mg ORAL q 6 H AR N - clopidogrel 75 mg tab(s) (PLAVIX) 75 mg ORAL DAILY - perflutren lipid microspheres 1.1 mg/mL 1.3 mL injection ( DEFINITY) 1.3 mL INTRAVENOUS DIRECTED PRN - fentaNYL 50 mcg/mL 25 mcg injection (SUBLIMAZE) 25 mcg INT RAVENOUS q 2 H PRN - atropine 0.4 mg injection 0.4 mg INTRAVENOUS PRN(NO DISPEN SE) - pregabalin 50 mg cap(s) (LYRICA) 50 mg ORAL DAILY - citalopram 20 mg tab(s) (CeleXA) 20 mg ORAL DAILY - famotidine 20 mg tab(s) (PEPCID) 20 mg ORAL DAILY - atorvastatin 20 mg tab(s) (LIPITOR) 20 mg ORAL AT BEDTIME - apixaban 2.5 mg tab(s) (ELIQUIS) 2.5 mg ORAL BID - metoprolol succinate ER 100 mg tab(s) (TOPROL XL) 100 mg O RAL DAILY - loperamide 2 mg cap(s) (IMODIUM) 2 mg ORAL TID PRN Assessment/Plan ASSESSMENT: STEMI S/P PCI Hemorrhagic pericardial effusion S/P pericardiocentesis with pericardial drain placed, POD # 3 Multiple chronic medical problems PLAN: Hemodynamically stable without IABP or pressors or high rate IV fluids. Continue to monitor pericardial drain output which is marked ly improved. Continue supportive care. Continue ICU care and monitoring. PROGNOSIS: Guarded Code status: Full Code. Discussed with Registered Nurse in detail. Critical Care Documentation: The patient has the following o rgan/system impairment(s): Acute blood loss and STEMI, Hemorrhagic peric ardial effusion Time spent providing critical care services: 10 minutes. SIGNATURE: Uli Tejeda MD [facility] PAGER:[phone] DATE of SERVICE: June 17, 2019 TIME of SERVICE: 9:29 AM hemogram on 2019-05 Erythrocyte distribution 15.7 11.7-14.4 % High 06-17 [facility] width (RBC) [Ratio] System ([id number]) Comment: Performed By: #### APTT #### [place] [id number] Hematocrit (Bld) [Volume 27.4 34.1-44.9 % Low 06-17 [facility]] System (00 000) Comment: Performed By: #### APTT #### [facility] [address] [place], [place] [address] Hemoglobin (Bld) [Mass/Vol] 8.9 11.2-15.7 g/dL Low [facility] (00 000) Comment: Performed By: #### APTT #### [facility] [address] [place], [place] [address] MCH (RBC) [Entitic mass] 32.2 25.6-32.2 pg Normal 06-17 [facility] (00 000) Comment: Performed By: #### APTT #### [facility] [address] [place], [place] [address] MCHC (RBC) [Mass/Vol] 32.5 31.6-34.8 % Normal 06-17-20 19 [facility] (03538) Comment: Performed By: #### APTT #### [facility] [address] [place], [place] [address] MCV (RBC) [Entitic vol] 99.3 79.4-94.8 fl High 2018 [facility] ([address]283) Comment: Performed By: #### APTT #### [facility] [address] [place], [place] [address] Platelet mean volume (Bld) 10.2 9.4-12.3 fl Normal [facility] [Entitic vol] System (34642) Comment: Performed By: #### APTT #### [facility] [address] [place], [place] [address] Platelets (Bld) [#/Vol] 134 182-369 thou/cmm Low 2018 [facility] (00 000) Comment: Performed By: #### APTT #### [facility] [address] [place], [place] [address] RBC (Bld) [#/Vol] 2.76 3.93-5.22 mil/cmm Low 06-17-2019 [facility] ([address]) Comment: Performed By: #### APTT #### [facility] [address] [place], [place] [address] RDW SD 56.4 36.4-46.3 fl High 06-17-2019 [facility] (98781) Comment: Performed By: #### APTT #### [facility] [address] [place], [place] [address] WBC (Bld) [#/Vol] 8.63 3.98-10.04 thou/cmm Normal 06-17-2019 [facility] (00 000) Comment: Performed By: #### APTT #### [facility] [address] [place], [place] [address] progress on 2019-05 PROGRESS HNO ID: [id number] Normal 06-16-2019 [place] Author: Wilmer Garcia [facility] Service: Cardiovascular Medicine Medical Author Type: Physician Center Type: Progress Notes ([id number]) Filed: 06/16/2019 1:50 PM Note Text: Attestation signed by Pro Moreno at 06/18/2019 12:21 PM Single anti-platelet therapy with clopidogrel, and apixaban for stroke prevention in atrial fibrillation; continue metoprolol succinate 100 mg once daily. Patient personally seen and examined. Ca se discussed with resident and team. I agree with documentation. Pro Moreno MD, FACP, FACC, [facility] Staff Cardiovascular Medicine [facility] of Interven tional Cardiology at [facility] [address], [address] [place], [place] [address] P: [phone] F: [phone] Cardiovascular Intensive Care Progress Note June 16, 2019 Patient Name: Giovanny Barcenas Patient Location: [id number]/ [facility]-324* Admission Date: 06/14/2019 Length of Stay: 2 Primary Service: Cardiovascular Intensive Care Case Background: 79 year old White female PMHx: HTN, IBS, spinal stenosis?HLD, GERD,?Atrial Fibrillati on?non smoker Presented on 06/14/2019 with the complaint of SOB. Admitted for pleural effusion post cath with multiple stent placement at [facility] on 06/13. Brought to the CVICU for hemorrhagic pleural effusion. No current facility-administered medications on file prior t o encounter. Current Outpatient Medications on File Prior to Encounter: ranitidine (ZANTAC) 75 mg tablet Take 75 mg by mouth every m orning. pregabalin (LYRICA) 50 mg capsule Take 50 mg by mouth once d aily. citalopram (CELEXA) 20 mg tablet Take 20 mg by mouth once da maricarmen. metoprolol succinate ER (TOPROL XL) 50 mg 24 hr tablet Take 50 mg by mouth once daily. meloxicam (MOBIC) 15 mg tablet Take 15 mg by mouth once pricila y. HYDROCODONE-ACETAMINOPHEN 5 MG-500 MG TAB Take TWO (2)tablet every four(4) hours as needed for pain. CHOLESTYRAMINE-ASPARTAME 4 GRAM PACKET 1 PACK QDAY oxycodone hcl/acetaminophen(PERCOCET 5 MG-325 MG TAB) as nec essary for back pain meloxicam(MOBIC 7.5 MG TAB) Take one(1) tablet daily. escitalopram oxalate(LEXAPRO 20 MG TAB) Take one(1) tablet d aily. esomeprazole mag trihydrate(NEXIUM 40 MG CAP) Take one(1) ca psule daily. simvastatin(ZOCOR 20 MG TAB) Take one(1) tablet daily at bed time. ATENOLOL 50 MG TAB Take one(1) tablet daily. Interval History for 06/16/19: Patient seen and examined in the AM. Patient's heart rate in creased overnight and patient went into atrial fibrillation. Patient was given metoprolol tartate which resolved it but it increased hours later. Patient also had her drain pulled as there was only 15 cc that drain ed from it overnight. Patient denied any nausea, vomiting, diarrhea, ch est pain, SOB or any other questions or concerns at this time. Review of Systems: Review of Systems Respiratory: Negative for shortness of breath. Cardiovascular: Negative for chest pain. Gastrointestinal: Negative for abdominal pain, diarrhea, davin sea and vomiting. 06/16/19 1000 06/16/19 1100 06/16/19 1200 06/16/19 1259 BP: 132/79 121/84 106/87 Pulse: 87 92 106 100 Resp: 30 27 27 22 Temp: TempSrc: SpO2: 89% 90% 91% 92% Weight: Height: Physical Exam Constitutional: She is oriented to person, place, and time a nd well-developed, well-nourished, and in no distress. No distr ess. Cardiovascular: Irregular rhythm and rate was 130s in AM No murmurs, rubs or gallops Pulmonary/Chest: Effort normal and breath sounds normal. No respiratory distress. She has no wheezes. She has no rales. Abdominal: Soft. Bowel sounds are normal. There is no tender ness. Drain present with minimal amount of bright red blood Musculoskeletal: She exhibits no edema. No edema in lower extremities Neurological: She is alert and oriented to person, place, an d time. Skin: She is not diaphoretic. Labs reviewed: Hg 9.1, 9.7 yesterday Plt 122 WBC 9.3 Serum creatinine: 1.59 mg/dL (H) 06/15/19 0445 Estimated creatinine clearance: 29.3 mL/min (A) Telemetry: A. Fib with RVR EKG: No new EKG Intake/Output Summary (Last 24 hours) at 06/16/2019 1335 Last data filed at 06/16/2019 1200 Gross per 24 hour Intake 1478 ml Output 1595 ml Net -117 ml Assessment/Plan Reviewed in its entirety and amended as appropriate on 06/16 ASSESSMENT ANDPLAN Pericardial Effusion-Resolved -Taken to public works laborer on 06/14. No active coronary perforation s een, 350 cc of maribell blood drained, balloon pump and drain removed already. Only drained 15 cc overnight. -Repeat Echo on 06/15 showed trivial amount of pericardial ef fusion -Hg stable at 9.3 today -Will transfuse PRN for anemia ? CAD- -Post multiple stent placement at [place] on 06/13 -Continue plavix, stopped aspirin as eliquis was started tod ay for a. fib -Atorvastatin 40 mg -Continuous Telemetry? -Started metoprolol 25 mg q6 with holding parameters for hyp otension. ?-Continue heart healthy diet ? HTN -Metoprolol succinate 100 mg ? A. Fib, ChadVasc over 4 -Started metoprolol 100 mg succinate, will monitor throughou t today and tomorrow. If stable, will discharge on this medication but i f not, may add digoxin. -started eliquis due to chadvasc score, stopped aspirin to a void bleeding ? HLD- -Continue patient on 40 mg atorvastatin ? GERD -Continue PPI ? Maintenance: VTE Prophylaxis:?Continous sequential compression devices, s tarted eliquis today Nutrition:?NPO for procedure ? Full Code Signed: Wilmer Garcia MD, PGY-2 Pager: [phone] [facility] Date: June 16, 2019 Time: 1:35 PM Recommendations are not finalized until co-signed by Staff reina hull. PROGRESS HNO ID: [id number] Normal 06-16-2019 Hawa Author: Uli Tejeda [facility] Service: Pulmonary Disease Medical Author Type: Physician Center Type: Progress Notes ([id number]) Filed: 06/17/2019 9:32 AM Note Text: CRITICAL CARE PROGRESS NOTE SERVICE DATE: June 16, 2019 SERVICE TIME: 10:55 AM Admission Date: 06/14/2019 AGE: [age] year old LOS: 2 days REASON FOR ICU ADMISSION: STEMI Pericardial effusion Hypertension Irritable Bowel Syndrome Spinal stenosis Subjective Patient is resting comfortably lying flat in bed without any current dyspnea or chest pain/pressure/discomfort. Patient is awake, alert, lucid, and conversant without any c urrent complaints. Objective 24 hour Intake AND Output: Intake/Output Summary (Last 24 hours) at 06/16/2019 1055 Last data filed at 06/16/2019 0730 Gross per 24 hour Intake 1644 ml Output 1770 ml Net -126 ml PHYSICAL EXAM: VITAL SIGNS: BP 125/77 Pulse 87 Temp 36 ?C (96.8 ?F) R marimar 30 Ht 167.6 cm (5' 6) Wt 78.4 kg (172 lb 13.5 oz) SpO2 89% BMI 27.90 kg/m? RRR Clear to auscultation without wheezing bilaterally anteriorl y. Scattered bowel sounds, soft, nontender, nondistended. No peripheral edema. Dry, intact skin with fair turgor. Lines, Drains, and Airways Line Central Line Triple Lumen 06/14/19 Right Neck 2 days IABP 06/14/19 1200 1 day Peripheral 06/14/[address] [facility] Right Forearm 1 day Peripheral 06/14/[address] [facility] Right Wrist 2 2 Gauge 1 day Drain Indwelling Urinary Catheter 06/14/19 1200 Admission to [facility] 16 Fr 1 day INPATIENT MEDICATIONS: Current Facility-Administered Medications Medication Dose Route Frequency - perflutren lipid microspheres 1.1 mg/mL 1.3 mL injection ( DEFINITY) 1.3 mL INTRAVENOUS DIRECTED PRN - acetaminophen 650 mg tab(s) (TYLENOL) 650 mg ORAL q 6 H AR N - clopidogrel 75 mg tab(s) (PLAVIX) 75 mg ORAL DAILY - perflutren lipid microspheres 1.1 mg/mL 1.3 mL injection ( DEFINITY) 1.3 mL INTRAVENOUS DIRECTED PRN - fentaNYL 50 mcg/mL 25 mcg injection (SUBLIMAZE) 25 mcg INT RAVENOUS q 2 H PRN - atropine 0.4 mg injection 0.4 mg INTRAVENOUS PRN(NO DISPEN SE) - pregabalin 50 mg cap(s) (LYRICA) 50 mg ORAL DAILY - citalopram 20 mg tab(s) (CeleXA) 20 mg ORAL DAILY - famotidine 20 mg tab(s) (PEPCID) 20 mg ORAL DAILY - atorvastatin 20 mg tab(s) (LIPITOR) 20 mg ORAL AT BEDTIME - apixaban 2.5 mg tab(s) (ELIQUIS) 2.5 mg ORAL BID - [START ON 06/17/2019] metoprolol succinate ER 100 mg tab(s) (TOPROL XL) 100 mg ORAL DAILY Assessment/Plan ASSESSMENT: STEMI S/P PCI Hemorrhagic pericardial effusion S/P pericardiocentesis with pericardial drain placed, POD # 2 Multiple chronic medical problems PLAN: Hemodynamically stable without pressors or high rate IV flui ds. IABP removed 06/15/19. Pericardial drain is well secured in place. Continue to monitor pericardial drain output. Continue supportive care. Continue ICU care and monitoring. PROGNOSIS: Guarded Code status: Full Code. Discussed with Registered Nurse in detail. Critical Care Documentation: The patient has the following o rgan/system impairment(s): Acute blood loss and STEMI, Hemorrhagic peric ardial effusion Time spent providing critical care services: 12 minutes. SIGNATURE: Uli Tejeda MD [facility] PAGER:[phone] DATE of SERVICE: June 16, 2019 TIME of SERVICE: 10:55 AM hemogram on 2019-05 Erythrocyte distribution 15.5 11.7-14.4 % High 06-16 [facility] width (RBC) [Ratio] System (91902) Comment: Performed By: #### APTT #### [address] [address] Hematocrit (Bld) [Volume 28.4 34.1-44.9 % Low 06-16 [facility]] System (00 000) Comment: Performed By: #### APTT #### [address] [address] Hemoglobin (Bld) [Mass/Vol] 9.1 11.2-15.7 g/dL Low [facility] (00 000) Comment: Performed By: #### APTT #### [address] [address] MCH (RBC) [Entitic mass] 31.9 25.6-32.2 pg Normal 06-16 [facility] (00 000) Comment: Performed By: #### APTT #### [facility] [address] [place], [place] [address] MCHC (RBC) [Mass/Vol] 32.0 31.6-34.8 % Normal 06-16-20 19 [facility] (94597) Comment: Performed By: #### APTT #### [address] [address] MCV (RBC) [Entitic vol] 99.6 79.4-94.8 fl High 2018 [facility] (14923) Comment: Performed By: #### APTT #### [facility] [address] [place], [place] [address] Platelet mean volume (Bld) 10.2 9.4-12.3 fl Normal [facility] [Entitic vol] System (98549) Comment: Performed By: #### APTT #### [facility] [address] [place], [place] [address] Platelets (Bld) [#/Vol] 122 182-369 thou/cmm Low 2018 [facility] (00 000) Comment: Performed By: #### APTT #### [facility] [address] [place] [id number] RBC (Bld) [#/Vol] 2.85 3.93-5.22 mil/cmm Low 06-16-2019 [facility] ([address]37) Comment: Performed By: #### APTT #### [facility] [address] [place] [address] RDW SD 56.2 36.4-46.3 fl High 06-16-2019 [facility] (66456) Comment: Performed By: #### APTT #### [facility] [address] [place], [place] [address] WBC (Bld) [#/Vol] 9.36 3.98-10.04 thou/cmm Normal 06-16-2019 [facility] (00 000) Comment: Performed By: #### APTT #### [facility] [address] [place], [place] [address] xr chest 1v frontal on 2019-06-15 XR CHEST 1V * * *Final Report* * * Normal 06-15 [facility] DATE OF EXAM: Jun 15 2019 8:04 [facility] 5290 - XR CHEST 1V FRONTAL / (18265) PROCEDURE REASON: Evaluate tube, line or lead position * * * * Physician Interpretation * * * * EXAMINATION: CHEST RADIOGRAPH (SINGLE VIEW AP OR PA) CLINICAL HISTORY: Evaluate tube, line or lead position MQ: XC1_5 Comparison: None. RESULT: Lines, tubes, and devices: Right IJ central venous catheter tip projected in the lower SVC. Lungs and pleura: Low lung volumes. There are bilateral inte rstitial infiltrates consistent with interstitial edema vs. fluid ove rload. Probable small bilateral pleural effusions with adjacent ate lectasis. No focal consolidative opacities. No pneumothorax. Cardiomediastinal silhouette: Normal cardiomediastinal silho uette. Other: No bony abnormalities. IMPRESSION: Interval right IJ central venous catheter placement, tip pro jecting over the lower SVC. No pneumothorax. Probable small bilateral pleural effusions with adjacent ate lectasis. Configuration Management Architect: PSCB Transcribe Date/Time: Jun 15 2019 8:09A Dictated by : PREETI DACOSTA MD This examination was interpreted and the report reviewed and electronically signed by: PREETI DACOSTA MD on Jun 15 2019 8:10AM EST type and screen on 2019-06-15 ABO group Nom (Bld) A Normal 06-15-2019 [facility] ([id number]) Comment: Performed By: #### APTT #### [place] [address] Comment See Below Normal 06-15-2019 [facility] (55657) Comment: Result Comment: Screen &/or Xmatch expires in 3 days at 12 midnight. Redraw patient at that time. Performed By: #### APTT #### [place] [address] RH Type Positive Normal 06-15-2019 [facility] ([address]221) Comment: Performed By: #### APTT #### [place] [address] troponin i on 06-15 Troponin I.cardiac 12.300 0.015-0.045 ng/ml Critically high [facility] [Mass/Vol] [facility] ([address]) Comment: Performed By: #### TROP #### [place] [address] progress on 2019-05 PROGRESS HNO ID: [id number] Normal 06-15-2019 [place] Author: Wilmer (Lulu Garcia General Service: Cardiovascular Medicine Medical Author Type: Physician Center Type: Progress Notes ([id number]) Filed: 06/15/2019 12:03 PM Note Text: Attestation signed by Shady Mosley at 06/15/2019 2:26 P M Attending Note: Coley findings confirmed. Patient examined. Discus sed with the resident, PA and the patient. Plan as outlined. Interval history: Patient is feeling much better. No chest pain or pressure. S he has some shortness of breath on deep inspiration. Physical exam Vital signs reviewed Gen.: Patient alert awake oriented ?3. No distress Pulmonary: Lungs are clear and the anterolateral lung goncalves Cardiovascular: Normal S1 and S2 no murmurs rubs or gallops. Extremities: Right lower pulses are difficult to palpate but dopplerable. The left lower extremity pulses are one plus. Pericardial drain: 250 mL of sanguinous fluid out overnight. Assessment and plan 79-year-old woman with an anterior wall myocardial infarctio n and emergent drug-eluting stents the LAD complicated by micro perforation in the distal LAD bed. Patient status post pericardiocentesis. Pericardial effusion: Limited 2-D echo is pending. Decreased pericardial drainage today. Likely discontinue drain in 24 hours if no f urther output Coronary artery disease: Doing well on Plavix therapy. Cardiogenic shock: Resolved with pericardiocentesis. We'll p george to remove intra-aortic balloon pump today. Shady Mosley MD Cardiovascular Intensive Care Progress Note June 15, 2019 Patient Name: Giovanny Barcenas Patient Location: [id number]/ [facility]-324* Admission Date: 06/14/2019 Length of Stay: 1 Primary Service: Cardiovascular Intensive Care Case Background: 79 year old White female PMHx: HTN, IBS, spinal stenosis HLD, GERD, Atrial Fibrillati on non smoker Presented on 06/14/2019 with the complaint of SOB. Admitted for pleural effusion post cath with multiple stent placement at [facility] on 06/13. Brought to the CVICU for hemorrhagic pleural effusion. No current facility-administered medications on file prior t o encounter. Current Outpatient Medications on File Prior to Encounter: ranitidine (ZANTAC) 75 mg tablet Take 75 mg by mouth every m orning. pregabalin (LYRICA) 50 mg capsule Take 50 mg by mouth once d aily. citalopram (CELEXA) 20 mg tablet Take 20 mg by mouth once da maricarmen. metoprolol succinate ER (TOPROL XL) 50 mg 24 hr tablet Take 50 mg by mouth once daily. meloxicam (MOBIC) 15 mg tablet Take 15 mg by mouth once pricila y. HYDROCODONE-ACETAMINOPHEN 5 MG-500 MG TAB Take TWO (2)tablet every four(4) hours as needed for pain. CHOLESTYRAMINE-ASPARTAME 4 GRAM PACKET 1 PACK QDAY oxycodone hcl/acetaminophen(PERCOCET 5 MG-325 MG TAB) as nec essary for back pain meloxicam(MOBIC 7.5 MG TAB) Take one(1) tablet daily. escitalopram oxalate(LEXAPRO 20 MG TAB) Take one(1) tablet d aily. esomeprazole mag trihydrate(NEXIUM 40 MG CAP) Take one(1) ca psule daily. simvastatin(ZOCOR 20 MG TAB) Take one(1) tablet daily at bed time. ATENOLOL 50 MG TAB Take one(1) tablet daily. Interval History for 06/15/19: Patient seen and examined in the AM. Patient went to the cat h lab yesterday and no active perforation of the coronary artery w as seen. 350 cc of maribell blood was removed at that time and a balloon pum p was placed. Patient has continued to drain a small amount overnight. Anne-Marie ceja stated she had some SOB over night but no chest pain, nausea, vomit ing, or diarrhea. Review of Systems: Review of Systems Respiratory: Positive for shortness of breath. Cardiovascular: Negative for chest pain. Gastrointestinal: Negative for abdominal pain, diarrhea, davin sea and vomiting. 06/15/19 1000 06/15/19 1111 06/15/19 1117 06/15/19 1142 BP: Pulse: 84 86 84 Resp: 29 28 30 Temp: 36.5 ?C (97.7 ?F) 36.5 ?C (97.7 ?F) 36.4 ?C (97.5 ?F) TempSrc: SpO2: 99% Weight: Height: Physical Exam Constitutional: She is well-developed, well-nourished, and i n no distress. No distress. HENT: Head: Normocephalic and atraumatic. Pulmonary/Chest: Effort normal and breath sounds normal. No respiratory distress. She has no wheezes. Abdominal: There is no tenderness. Drain present in upper abdomen with small amount of bright r ed blood present in bag Musculoskeletal: She exhibits no edema (no sacral edema pres ent in lower extremities ). Skin: She is not diaphoretic. Labs reviewed: WBC 9.7 Hg 9.8, 10.8 yesterday Plt 88 Serum creatinine: 1.59 mg/dL (H) 06/15/19 0445 Estimated creatinine clearance: 29.3 mL/min (A) Telemetry: PVCs present today EKG: No new EKG Intake/Output Summary (Last 24 hours) at 06/15/2019 1148 Last data filed at 06/15/2019 1142 Gross per 24 hour Intake 1698 ml Output 1340 ml Net 358 ml Assessment/Plan Reviewed in its entirety and amended as appropriate on 06/15 ASSESSMENT ANDPLAN Pericardial Effusion- -Taken to public works laborer on 06/14. No active coronary perforation s een, 350 cc of maribell blood drained, balloon pump placed and drain left in p lace post procedure -Will repeat echo today, if no effusion present, will consid er removed balloon pump with possible removal of drain tomorrow if blee ding stops. -Hg 13 at baseline and 9.8 today which was 10.8 before proce dure yesterday. -Will transfuse PRN for anemia ? CAD- -Post multiple stent placement at [place] on 06/13 -Continue plavix and aspirin daily -Atorvastatin 40 mg -Continuous Telemetry -No heparin due bleed risk -Started metoprolol 25 mg q6 with holding parameters for hyp otension. ?-Continue heart healthy diet HTN -Started metoprolol 25 mg q6 ? A. Fib, ChadVasc 2 -Started metoprolol -Not on anticoagulation currently at home, would hold off du e to current bleed risk ? HLD- -Continue patient on 40 mg atorvastatin ? GERD -Continue PPI ? Maintenance: VTE Prophylaxis: Continous sequential compression devices, N o pharmacological prophylaxis due to bleed risk Nutrition: NPO for procedure Full Code Signed: Wilmer Garcia MD, PGY-2 Pager: [phone] [facility] Date: June 15, 2019 Time: 11:48 AM Recommendations are not finalized until co-signed by Staff reina hull. PROGRESS HNO ID: [id number] Normal 06-15-2019 [place] Author: Kevin Amador (Pa) General Service: Cardiovascular Surgery Medical Author Type: Physician [facility] Type: Progress Notes ([id number]) Filed: 06/15/2019 4:40 PM Note Text: INTERVENTIONAL CARDIOLOGY PROGRESS NOTE SERVICE DATE: 06/15/2019 SERVICE TIME: 10:26 AM Patient seen with attending, Dr. Mosley. Doing well with IA BP. Excellent hemodynamics. Will change IABP to 1:2 and monitor. If still stable will plan to remove today. Platelets low at 88. In co njunction with the ongoing sanguinous drainage from pericardial drain, will transfuse 5 pack platelets in attempt to reduce further risk of bleeding. Central line was also requiring additional suturing to stabi lize line. Patient provided 3 mL of Lidocaine and line secured under st erile technique. Chlorhexidine dressing applied. SIGNATURE: Kevin Amador PA-C PATIENT NAME: Giovanny Barcenas DATE: June 15, 2019 TIME: 10:26 AM PAGER/CONTACT #: [phone] ETX#[id number] Addendum #1 [id number] 06/15/2019 Patient drain removed at 12:25 this AM under direct supervis ion of Dr. Mosley. EBL 10 mL. There was a small localized hematoma abo ut 5 cm in diameter. DP 1-2+ after procedure. Patient tolerated procedu re, no other acute complications. Upon reevaluation, hematoma resolving. DP 1-2+. Will continue to monitor overnight. Awaiting repeat echo tod ay. CBC tomorrow. Assessment/ plan: -AMI (STEMI) s/p LUTHER to LAD at [facility] complicated by perforation: ASA/ plavix/ atorvastatin 40/ metoprolol -Pericardial effusion/ tamponade: s/p pericardiocentesis wit h drain placement: Monitor drain, check echo -Thrombocytopenia: 88, s/p 5 pack platelet 06/15: CBC 06/16 -Acute blood loss anemia: 2/2 perforation: No indication for transfusion. Monitor. -Obstructive shock: 2/2 tamponade. s/p IABP removal 06/15. -MARIELLE vs CKD: Unknown baseline. If acute likely from ATN re: shock. It is on the earlier side to see a decrease in kidney function due to contrast from cath. Avoid hypotension, nephrotoxins. Kevin Amador PA-C PROGRESS HNO ID: [id number] Normal 06-15-2019 [place] Author: Uli Hernandez Service: Pulmonary Disease Medical Author Type: Physician Center Type: Progress Notes ([id number]) Filed: 06/15/2019 10:22 AM Note Text: CRITICAL CARE PROGRESS NOTE SERVICE DATE: June 15, 2019 SERVICE TIME: 10:12 AM Admission Date: 06/14/2019 AGE: [age] year old LOS: 1 days REASON FOR ICU ADMISSION: STEMI Pericardial effusion Hypertension Irritable Bowel Syndrome Spinal stenosis Subjective Patient is resting comfortably lying flat in bed without any current dyspnea or chest pain/pressure/discomfort. Patient is awake, alert, lucid, and conversant without any c urrent complaints. Objective 24 hour Intake AND Output: Intake/Output Summary (Last 24 hours) at 06/15/2019 1012 Last data filed at 06/15/2019 0700 Gross per 24 hour Intake 1252 ml Output 1065 ml Net 187 ml PHYSICAL EXAM: VITAL SIGNS: BP 120/67 Pulse 84 Temp 36.5 ?C (97.7 ?F) Resp 29 Ht 167.6 cm (5' 6) Wt 78.4 kg (172 lb 13.5 oz) SpO2 99% BMI 27.90 kg/m? RRR Clear to auscultation without wheezing bilaterally anteriorl y. Scattered bowel sounds, soft, nontender, nondistended. No peripheral edema. Dry, intact skin with fair turgor. Alert and oriented x 3. No focal deficits Lines, Drains, and Airways Line Central Line Triple Lumen 06/14/19 Right Neck 1 day IABP 06/14/19 1200 less than 1 day Peripheral 06/14/19 1200 Admission to Hospital Right Forearm less than 1 day Peripheral 06/14/19 1200 Admission to Hospital Right Wrist 2 2 Gauge less than 1 day Drain Drain/Tube 06/14/19 Assessment Pericardial Drain #1 1 day Indwelling Urinary Catheter 06/14/19 1200 Admission to [facility] 16 Fr less than 1 day INPATIENT MEDICATIONS: Current Facility-Administered Medications Medication Dose Route Frequency - perflutren lipid microspheres 1.1 mg/mL 1.3 mL injection ( DEFINITY) 1.3 mL INTRAVENOUS DIRECTED PRN - acetaminophen 650 mg tab(s) (TYLENOL) 650 mg ORAL q 6 H AR N - atorvastatin 40 mg tab(s) (LIPITOR) 40 mg ORAL AT BEDTIME - aspirin 81 mg chewable tab(s) 81 mg ORAL DAILY - clopidogrel 75 mg tab(s) (PLAVIX) 75 mg ORAL DAILY - perflutren lipid microspheres 1.1 mg/mL 1.3 mL injection ( DEFINITY) 1.3 mL INTRAVENOUS DIRECTED PRN - pantoprazole DR 40 mg tab(s) (PROTONIX) 40 mg ORAL DAILY ( 6 AM) - fentaNYL 50 mcg/mL 25 mcg injection (SUBLIMAZE) 25 mcg INT RAVENOUS q 2 H PRN - metoprolol tartrate (short acting) 25 mg tab(s) (LOPRESSOR ) 25 mg ORAL q 6 H Assessment/Plan ASSESSMENT: STEMI S/P PCI Hemorrhagic pericardial effusion S/P pericardiocentesis with pericardial drain placed Multiple chronic medical problems PLAN: Hemodynamically stable without pressors or high rate IV flui ds. IABP in place. May be removed this AM as per Cardiology. Pericardial drain is well secured in place. Continue to monitor pericardial drain output. Continue supportive care. Continue ICU care and monitoring. This patient has a high probability of sudden, clinically si gnificant deterioration, which requires the highest level of physician preparedness to intervene urgently. I managed/supervised life or organ yanez pporting interventions that required frequent physician assessment. I devoted my full attention to the direct care of this patient for the am ount of time indicated below. Time I spent with family or surrogate(s) is included only if the patient was incapable of providing the necessary information or participating in medical decision making. Time devoted to teaching and to any procedures I billed separately is not included. PROGNOSIS: Guarded Code status: Full Code. Discussed with Registered Nurse in detail. Critical Care Documentation: The patient has the following o rgan/system impairment(s): Acute blood loss and STEMI, Hemorrhagic peric ardial effusion Time spent providing critical care services: 22 minutes. SIGNATURE: Uli Tejeda MD [facility] PAGER:[phone] DATE of SERVICE: June 15, 2019 TIME of SERVICE: 10:12 AM plan of care on 201 07-01-23 PLAN OF CARE HNO ID: [id number] [place] 06-15-20 [facility] Author: Michelle Cartagena ([place]) Center ([id number]) Service: ? Author Type: ? Type: Plan of Care Filed: 06/15/2019 5:12 PM Note Text: FACILITY PLANNER BEDSIDE DELIVERY SURVEY 1. Patient to use [facility] Bedside Delivery - YES Insurance Information as follows: 2. Insurance card on file - YES 3. Credit card for payment - N/A Patient elected to use bedside delivery. No prescriptions cu rrently written. Please call pharmacy bedside delivery at [phone] or [phone] when patient has discharge orders and prescript ions are ready to be filled and delivered prior to discharge. Thank you. Michelle Cartagena ([place]) PLAN OF CARE HNO ID: [id number] [place] 06-15-20 [facility] Author: Tanisha Shanks (Pharmacist) Center ([id number]) Service: ? Author Type: Pharmacist Type: Plan of Care Filed: 06/15/2019 2:34 PM Note Text: MEDICATION HISTORY AND MEDICATION RECONCILIATION Patient Name:Gutierrez Barcenas : 1940 Source of history:Patient: Reliability of source: Appears re liable, clearly identified: Medication name, Medication dose and Med ication frequency and Pharmacy records: [facility] [employer] fill recor ds Medication Nonadherence Identified: No barriers noted The above information represents the best possible medicatio n history: Yes Reconciliation completed? 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 addressed by LIP Additional comments: Lsrgh-ec-Oxhaaljdv Medication List Adjustments: Medication Regimen Changes: Meloxicam changed from 7.5 mg to 15 mg based on fill history Medications Added: Ranitidine 75 mg once daily Pregabalin 50 mg once daily Citalopram 20 mg once daily Metoprolol succinate 50 mg once daily Medications Removed: Oxycodone-APAP (does not take anymore) Cholestyramine (does not take anymore) Escitalopram (does not take anymore) Esomeprazole (does not take anymore) Simvastatin (does not take anymore) Atenolol (does not take anymore) Patient is a 30 day readmission: No Patient Interested in Bedside Delivery: Yes Time Spent Reviewing Patient's Medications: 30 minutes Allergies: ALLERGIES Allergen Reactions - Neurontin [Gabapent* Itching - Soap Itching PRE OP SOAP - Sulfa (Sulfonamide * Swelling, Itching Preferred Pharmacy: [facility] ([address] Current RADIO INTERFERENCE EXPERT Medications: Prior to Admission medications as of 06/15/19 1037 Medication Sig Last Dose Taking ranitidine (ZANTAC) 75 mg tablet Take 75 mg by mouth every m orning. Yes pregabalin (LYRICA) 50 mg capsule Take 50 mg by mouth once d aily. Yes citalopram (CELEXA) 20 mg tablet Take 20 mg by mouth once da maricarmen. Yes metoprolol succinate ER (TOPROL XL) 50 mg 24 hr tablet Take 50 mg by mouth once daily. Yes meloxicam (MOBIC) 15 mg tablet Take 15 mg by mouth once pricila y. Yes HYDROCODONE-ACETAMINOPHEN 5 MG-500 MG TAB Take TWO (2)tablet every four(4) hours as needed for pain. Yes No No No No No No No Tanisha Shanks, Pharmacist June 15, 2019 10:35 AM pheresed platelets on 2019-06-15 Pheresed Plts unit 1 Done Normal 9 [facility] ([id number]) Comment: Performed By: #### APTT #### [address] [address] mdrd gfr on 2019-05 GFR/1.73 sq M 31.15 >60mL/min/1.73m2 mL/min/{1.73_m2} Normal [place] predicted among Gene ral non-blacks MDRD Heal th (S/P/Bld) [Vol Syste m rate/Area] (20518) Comment: Result Comment: If the patie nt is , multiply the result by 1.210. Performed By: #### GFR #### [address] [address] hemogram on 2019-05 Erythrocyte distribution 15.9 11.7-14.4 % High 06-15 [facility] width (RBC) [Ratio] System (52951) Comment: Performed By: #### CBC1 #### [facility] [address] [place], [place] [address] Hematocrit (Bld) [Volume 31.5 34.1-44.9 % Low 06-15 [facility] fraction] System (00 000) Comment: Performed By: #### CBC1 #### [facility] [address] [place] [address] Hemoglobin (Bld) [Mass/Vol] 9.8 11.2-15.7 g/dL Low [facility] ( 000) Comment: Performed By: #### CBC1 #### [place] [address] MCH (RBC) [Entitic mass] 31.5 25.6-32.2 pg Normal 06-15 [facility] System (00 000) Comment: Performed By: #### CBC1 #### [place] [address] MCHC (RBC) [Mass/Vol] 31.1 31.6-34.8 % Low 06-15-20 19 [facility] ([address]352) Comment: Performed By: #### CBC1 #### [place] [address] MCV (RBC) [Entitic vol] 101.3 79.4-94.8 fl High 2018 [facility] (00 000) Comment: Performed By: #### CBC1 #### [place] [id number] Platelet mean volume (Bld) 10.6 9.4-12.3 fl Normal [facility] [Entitic vol] System (60097) Comment: Performed By: #### CBC1 #### [place] [id number] Platelets (Bld) [#/Vol] 88 182-369 thou/cmm Low 2018 [facility] (00 000) Comment: Result Comment: Smear scanne d tech agrees with platelet count Performed By: #### CBC1 #### [facility] [address] [place], [place] [address] RBC (Bld) [#/Vol] 3.11 3.93-5.22 mil/cmm Low 06-15-2019 [facility] ([address]) Comment: Performed By: #### CBC1 #### [facility] [address] [place], [place] [address] RDW SD 58.7 36.4-46.3 fl High 06-15-2019 [facility] (33421) Comment: Performed By: #### CBC1 #### [facility] [address] [place], [place] [address] WBC (Bld) [#/Vol] 9.76 3.98-10.04 thou/cmm Normal 06-15-2019 [facility] (00 000) Comment: Performed By: #### CBC1 #### [address] [address] comprehensive panel on 2019-06-15 ALP [Catalytic activity/Vol] 62 45-117 U/L Normal 0 06-15-2019 [facility] (00 000) Comment: Performed By: #### P14 #### [facility] [address] [place], [place] [address] Bilirubin [Mass/Vol] 0.3 0.2-1.0 mg/dL Normal 9 [facility] (78472) Comment: Performed By: #### P14 #### [facility] [address] [place], [place] [address] Protein [Mass/Vol] 5.0 6.4-8.2 g/dL Low 06-15-2019 [facility] (435[address]) Comment: Performed By: #### P14 #### [facility] [address] [place], [place] [address] ALT [Catalytic activity/Vol] 249 12-78 U/L High 0 06-15-2019 [facility] (00 000) Comment: Performed By: #### P14 #### [facility] [address] [place], [place] [address] AST [Catalytic activity/Vol] 147 15-37 U/L High 0 06-15-2019 [facility] (00 000) Comment: Performed By: #### P14 #### [facility] [address] [place], [place] [address] Creatinine [Mass/Vol] 1.59 0.51-0.95 mg/dL High 06-15-20 19 [facility] (00 000) Comment: Performed By: #### P14 #### [facility] [address] [place], [place] [address] Albumin [Mass/Vol] 2.2 3.4-5.0 g/dL Low 06-15-2019 [facility] (46881) Comment: Performed By: #### P14 #### [facility] [address] [place], [place] [address] Anion gap [Moles/Vol] 11 8-16 mmol/L Normal 06-15-20 19 [facility] (51156) Comment: Performed By: #### P14 #### [facility] [address] [place], [place] [address] CO2 [Moles/Vol] 20 21-32 mEq/L Low 06-15-2019 [facility] (26877) Comment: Performed By: #### P14 #### [facility] [address] [place], [place] [address] Glucose [Mass/Vol] 104 70-99 mg/dL High 06-15-2019 [facility] (46850) Comment: Performed By: #### P14 #### [facility] [address] [place], [place] [address] Calcium [Mass/Vol] 7.3 8.5-10.1 mg/dL Low 06-15-2019 [facility] (76531) Comment: Performed By: #### P14 #### [facility] [address] [place], [place] [address] Urea nitrogen [Mass/Vol] 24 7-18 mg/dL High 06-15 [facility] (76970) Comment: Performed By: #### P14 #### [facility] [address] [place], [place] [address] Chloride [Moles/Vol] 118 98-107 mEq/L High 9 [facility] ([address]) Comment: Performed By: #### P14 #### [facility] [address] [place], [place] [address] Potassium [Moles/Vol] 4.5 3.5-5.1 mEq/L Normal 06-15-20 19 [facility] (68645) Comment: Performed By: #### P14 #### [facility] [address] [place], [place] [address] Sodium [Moles/Vol] 144 136-145 mEq/L Normal 06-15-2019 [facility] (42927) Comment: Performed By: #### P14 #### [facility] [address] [place], [place] [address] case mgt init asses on 2019-06-15 CASE MGT INIT HNO ID: [id number] Normal 019 [facility] Author: Adelia (Rn) [facility] Service: ? 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 Last Discharge Date: N/A Is this Within the Past 30 days? 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 How often do you need to have someone help you when you r ead instructions, pamphlets, or other written material from your doctor or pharmacy? Never - 1 2. How confident are you filling out medical forms by yourse lf? Extremely - 1 If Patient scores > 3 on either question, the following inte rventions were put into place: Patient did not score > 3 FUNCTIONAL AND COGNITIVE/BEHAVIORAL PRIOR TO ADMISSION: Baseline Mental Status: Alert AND Oriented, Person, Place , Time and Situation Functional Status: Independent Does Patient Currently Receive Any Community Services or Keith e Care? None Equipment Prior to Admission: Cane - Straight Has the Patient Been in a [facility] in the [facility] 30 days? No SOCIAL: Living Arrangement: Home Lives With: Spouse and Daughter Financial Resources: Retired Primary Contact: Extended Emergency Contact Information Primary Emergency Contact: Barcenas,Jack Address: [address] [place] [address] Relation: Spouse Secondary Emergency Contact: Twyla Barcenas/Ramiro Mobile Relation: Son Supportive: Yes Other Important Patient Contacts: None Caregiver Assessment: Caregiver is ready, willing and able to meet the patient's n eeds as recommended by the inter-professional team? Yes Patient's transition needs and plan for meeting these needs: home, self care, family assist as needed Does the patient have an acute stroke diagnosis, or has the patient had a stroke during this admission? No Medication Adherence: I am convinced of the importance of my prescription medicati on: Agree completely - 0 I worry that my prescription medication will do more harm th an good to me Disagree completely - 0 I feel financially burdened by my xky-rf-sulmjl expenses for my prescription medication: Disagree completely - 0 Patient is categorized as low risk < 2 Are you interested in bedside delivery of your medications? No Food Concerns: In the Last Month, Have You had Trouble Getting Food? No tro uble getting food During the Last Month, Have You Worried Whether Your Food Wo uld Run Out Before You Had Enough Money to Buy More? No Is the Patient Psychosocially Complex? No ASSESSMENT AND PLAN: Medical Needs: None Psychosocial Needs: None FREEDOM OF CHOICE EXPLAINED: N/A POTENTIAL TRANSITION PLANS Home Met with pt, explained CM role. 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 Plan is to return home at [facility]. Cont to follow fro transitional care needs. SIGNATURE: Adelia Romeo RN PATIENT NAME: Giovanny Barcenas DATE: June 15, 2019 TIME: 11:10 AM PAGER/CONTACT #: [phone] abo/rh confirmation on 2019-06-15 ABO group Nom (Bld) A Normal 06-15-2019 [facility] ([id number]) Comment: Performed By: #### APTT #### [facility] [address] [place] [id number] RH Type Positive Normal 06-15-2019 [facility] ([address]) Comment: Performed By: #### APTT #### [facility] [address] [place], [place] [address] protime on INR Coag (PPP) [Relative 1.01 0.90-1.30 {INR} Normal 06-14 [facility] time] System (00 000) Comment: Result Comment: Vitamin K An tagonist (VKA) Therapeutic Range: INR 2 to 3 (Target INR of 2.5) Note: For patients treated w ith VKA drugs, such as warfarin, the [place] [employer] 2012 Guideline recommends a therapeutic INR range of 2 to 3 (target INR of 2.5). This recommendation includes high -risk patients with antiphospholipid syndrome with previous arter ial or venous thromboembolism, current-generation mechanica l or bioprosthetic aortic heart valve replacement. VKA Therapeutic Range for so me Mechanical Valve Replacement: INR 2.5 to 3.5 (Target INR o f 3) Note: Patients with aerospace mechanic al aortic valve replacement and additional risk factors for thromboembolic events (atrial fibrillation, previous throm boembolism, LV dysfunction, hypercoagulable conditions) or an older generation mechanical AVR (i.e., ball in-Cage) or any mechanical MVR should have a INR therapeutic range of 2 .5 to 3.5 target INR of 3). Cassie GH, et al. Chest 2012 ; 141:7S-47S Daria RA et al. JACC 20 17; 70: 252-289 Performed By: #### PT #### [facility] [address] [place], [place] [address] PT Coag (PPP) [Time] 10.5 9.7-13.0 sec Normal 9 [facility] ([id number]) Comment: Performed By: #### PT #### [facility] [address] [place] [id number] progress on 2019-05 PROGRESS HNO ID: [id number] Normal 06-14-2019 [facility] Author: [facility] Service: Pulmonary Disease ([id number]) Author Type: Physician Type: Progress Notes Filed: 06/14/2019 3:33 PM Note Text: CRITICAL CARE PROGRESS NOTE SERVICE DATE: June 14, 2019 SERVICE TIME: 2:48 PM Admission Date: 06/14/2019 AGE: [age] year old LOS: 0 days REASON FOR ICU ADMISSION: STEMI Pericardial effusion Hypertension Irritable Bowel Syndrome Spinal stenosis Subjective Patient is an 79 year old woman with a past medical history of hypertension, IBS,and spinal stenosis who presented to [facility] on 06/14/2019 S/P PCI for STEMI at [facility]. Reportedly, during the PCI, the patient developed a small co ronary artery perforation leading to a suspected hemorrhagic pericardial e ffusion. She also had an IABP placed while at [place]. She has been hemod ynamically stable without any vasoactive agents being used. Patient is resting comfortably lying flat in bed without any current dyspnea or chest pain/pressure/discomfort. Patient is awake, alert, lucid, and conversant without any c urrent complaints. Objective 24 hour Intake AND Output: No intake or output data in the 24 hours ending 06/14/19 144 8 PHYSICAL EXAM: VITAL SIGNS: LS=398, RR=21, YL=665/53 (72) RRR Clear to auscultation without wheezing bilaterally anteriorl y. Scattered bowel sounds, soft, nontender, nondistended. No peripheral edema. Dry, intact skin with fair turgor. Alert and oriented x 3. No focal deficits Lines, Drains, and Airways Line IABP 06/14/19 1200 less than 1 day Peripheral 06/14/19 1200 Admission to Hospital Right Forearm less than 1 day Peripheral 06/14/[address] [facility] Right Wrist 2 2 Gauge less than 1 day Drain Indwelling Urinary Catheter 06/14/19 1200 Admission to [facility] 16 Fr less than 1 day INPATIENT MEDICATIONS: Current Facility-Administered Medications Medication Dose Route Frequency - perflutren lipid microspheres 1.1 mg/mL 1.3 mL injection ( DEFINITY) 1.3 mL INTRAVENOUS DIRECTED PRN Assessment/Plan ASSESSMENT: STEMI S/P PCI Hemorrhagic pericardial effusion Multiple chronic medical problems PLAN: Hemodynamically stable without pressors or high rate IV flui ds. IABP in place. Will place TLC for better IV access and, if necessary, for p ressors. Continue to monitor patient's hemodynamics/oxygenation. Intubate if necessary. Need and timing for further intervention as per Intervention al Cardiology. Continue supportive care. Continue ICU care and monitoring. This patient has a high probability of sudden, clinically si gnificant deterioration, which requires the highest level of physician preparedness to intervene urgently. I managed/supervised life or organ yanez pporting interventions that required frequent physician assessment. I devoted my full attention to the direct care of this patient for the am ount of time indicated below. Time I spent with family or surrogate(s) is included only if the patient was incapable of providing the necessary information or participating in medical decision making. Time devoted to teaching and to any procedures I billed separately is not included. PROGNOSIS: Guarded Code status: Full Code. Discussed with Registered Nurses and Dr. Mitali Mosley ([facility]) in detail. Critical Care Documentation: The patient has the following o rgan/system impairment(s): Acute blood loss and STEMI, Hemorrhagic peric ardial effusion Time spent providing critical care services: 40 minutes. SIGNATURE: Uli Tejeda MD [facility] PAGER:[phone] DATE of SERVICE: June 14, 2019 TIME of SERVICE: 2:48 PM nursing prog on 201 07-01-22 NURSING PROG HNO ID: [id number] Normal 06-14-20 [facility] Author: Josué Goddard) ISAMAR Rangel [place] ([id number]) Service: Nursing Author Type: Registered Nurse Type: Nursing Progress Note Filed: 06/14/2019 7:59 PM Note Text: Patient had arrived from [facility] at 13:45 . Equipment transferred over from [place] equipment to this hospital e quipment. Patient is awake and oriented x3 and moves all extremities. Complaints of dull aching chest pain 2/10. Non-radiating. Has not increase d since leaving [facility]. IABP insertion site to right groin. Small amount of bloody d rainage on dressing. Pedal pulses verified with doppler signals. Both k nees have some mottling present. Cool extremities with normal capillary ref ill. IV access is minimal. The IV that the patient had with blood infusing had clotted off during transport and was unable to be flushed. T he #22 in the right hand is able to be flushed but does not aspirate blood . 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 Plan is to obtain central line access. Patient was taken to the public works laborer shortly after her arrival to he unit for pericardial window/drain. Obtained >250 ml of dark red blood . RIJ central line was also placed under flouroscopy in the public works laborer. Vers ed, fentanyl and plavix were administered in the public works laborer. Afterward, the patient was transported back to CVICU 3243. Prieto Mosley spoke with the family post procedure. The patient is resting comfortably and shift hand off is com plete. Vitals and assessment as documented in Epic. NURSING PROG HNO ID: [id number] Normal 06-14-20 19 [facility] Medical Author: Josué BelloRn) ISAMAR Rangel [place] ([id number]) Service: Nursing Author Type: Registered Nurse Type: Nursing Progress Note Filed: 06/14/2019 12:33 PM Note Text: Report received from [facility] TALENT ADVISOR. Expecting Life Flight withi n 30 minutes. Patient to be transported directly to CVICU 3243 upon arriva l from [facility]. hosp on 2019-06-14 HOSP Patient:Giovanny Barcenas Normal 019 [facility] MRN: Medical Ce nter Height:No patient height recorded for this patient. ([id number]) Weight:No patient weight recorded within the last 30 days. Outpatient Medications as of 06/14/19: HYDROCODONE-ACETAMINOPHEN 5 MG-500 MG TAB CHOLESTYRAMINE-ASPARTAME 4 GRAM PACKET oxycodone hcl/acetaminophen(PERCOCET 5 MG-325 MG TAB) meloxicam(MOBIC 7.5 MG TAB) escitalopram oxalate(LEXAPRO 20 MG TAB) esomeprazole mag trihydrate(NEXIUM 40 MG CAP) simvastatin(ZOCOR 20 MG TAB) ATENOLOL 50 MG TAB Admission/Clinic Administered Medications as of 06/14/19: perflutren lipid microspheres 1.1 mg/mL 1.3 mL injection (DE FINITY) Problem List: No problem list on file for this patient. Allergies: Neurontin [Gabapentin] Soap Sulfa (Sulfonamide Antibiotics) Date Verified: 06/14/19 Lab Values Lab Value Units Date High Low SHIRLEY* 34.0 % 06/14/2019 44.9 34.1 Progress Notes (): Josué Rangel, RN, RN 06/14/2019 12:33 PM Signed Report received from [facility] TALENT ADVISOR. Expecting Life Flight withi n 30 minutes. Patient to be transported directly to CVICU 3243 upon arriva l from [facility]. Uli Tejeda MD 06/14/2019 3:33 PM Signed CRITICAL CARE PROGRESS NOTE SERVICE DATE: June 14, 2019 SERVICE TIME: 2:48 PM Admission Date: 06/14/2019 AGE: [age] year old LOS: 0 days REASON FOR ICU ADMISSION: STEMI Pericardial effusion Hypertension Irritable Bowel Syndrome Spinal stenosis Subjective Patient is an 79 year old woman with a past medical hi story of hypertension, IBS,and spinal stenosis who presented to [facility] on 06/14/2019 S/P PCI for STEMI at [facility]. Reportedly, during the PCI, the patient developed a small coronary artery perforation leading to a suspected hemorrhagic pericardial effu joe. She also had an IABP placed while at [place]. She has been hemodynamically stable without any vasoactive agents being used. Patient is resting comfortably lying flat in bed witho ut any current dyspnea or chest pain/pressure/discomfort. Patient is awake, alert, lucid, and conv ersant without any current complaints. Objective 24 hour Intake AND Output: No intake or output data in the 24 hours ending 06/14/19 144 8 PHYSICAL EXAM: VITAL SIGNS: II=820, RR=21, EF=808/53 (72) RRR Clear to auscultation without wheezing bilaterally anteriorl y. Scattered bowel sounds, soft, nontender, nondistended. No peripheral edema. Dry, intact skin with fair turgor. Alert and oriented x 3. No focal deficits Lines, Drains, and Airways Line IABP 06/14/19 1200 less than 1 day Peripheral 06/14/19 1200 Admission to Hospital Right F orearm less than 1 day Peripheral 06/14/[address] [facility] Right Wrist 22 Gauge less than 1 day Drain Indwelling Urinary Catheter 06/14/19 1200 Admission to Hospital [facility] 16 Fr less than 1 day INPATIENT MEDICATIONS: Current Facility-Administered Medications Medication Dose Route Frequency - perflutren lipid microspheres 1.1 mg/mL 1.3 mL injec tion (DEFINITY) 1.3 mL INTRAVENOUS DIRECTED PRN Assessment/Plan ASSESSMENT: STEMI S/P PCI Hemorrhagic pericardial effusion Multiple chronic medical problems PLAN: Hemodynamically stable without pressors or high rate IV flui ds. IABP in place. Will place TLC for better IV access and, if necessary, for p ressors. Continue to monitor patient's hemodynamics/oxygenation. Intubate if necessary. Need and timing for further intervention as per Intervention al Cardiology. Continue supportive care. Continue ICU care and monitoring. This patient has a high probability of sudden, clinically si gnificant deterioration, which requires the highest level of phy sician preparedness to intervene urgently. I manage d/supervised life or organ supporting interventions that required frequent physi simi assessment. I devoted my full attention to the direct care of this patient for the amount of time indicated below. Time I spent with family or surroga te(s) is included only if the patient was incapable of providing the necessary information or participating in medical decision making. Time devoted to teaching and to any proc edures I billed separately is not included. PROGNOSIS: Guarded Code status: Full Code. Discussed with Registered Nu gregory and Dr. Mitali Mosley (Interventional Cardiology) in detail. Critical Care Documentation: The patient has the following o rgan/system impairment(s): Acute blood loss and STEMI, Hemorrhagic per icardial effusion Time spent providing critical care services: 40 minutes. SIGNATURE: Uli Tejeda MD [facility] PAGER:[phone] DATE of SERVICE: June 14, 2019 TIME of SERVICE: 2:48 PM Wilmer Garcia MD 06/14/2019 3:43 PM Incomplete [facility] History and Physical Patient Name: Giovanny Barcenas Date: June 14, 2019 Time: 3:33 PM Primary Care Provider: Kaylyn Aburto DO Date of Admission: 06/14/2019 Admitting Facility: [facility] enter Service: [facility] Inpatient Service Attending: Dr. Shady Mosley Reason For Admission: Small coronary artery perforation Subjective HPI: Giovanny is a 79 year old female with a his tory of HTN, IBS, spinal stenosis, non smoker who presented to the [facility] for small coronary artery perforation. Patient was at [facility] yest erday for a STEMI after an episode of crushing chest pain which the patient had multiple stents placed and a IABP placed while at [facility]. Patient was started on aspirin and brilinta for her recent stent placement. Overnight, patient developed increased SOB and was found to have small coronary artery perforation. ROS ER course: Past Medical History: SEE CHRONIC ISSSUES: PAST MEDICAL HISTORY Diagnosis Date - ATRIAL FIBRILLATION - BENIGN HYPERTENSION - CHRONIC CHOLECYSTITIS NEC - ESOPHAGEAL REFLUX - HYPERLIPIDEMIA NEC/NOS - SCIATICA Past Surgical History: PAST SURGICAL HISTORY Procedure Laterality Date - BREAST RECONSTRUCTION left - L'SCOPE CARO W/CHOLANGIOGRAPHY 01/25/08 - MASTECTOMY, RADICAL left - PAST SURGICAL HISTORY OF lung infection, clensing - TOTAL ABDOM HYSTERECTOMY Hysterectomy, NANCY Past Family History: No family history on file. Past Social History: Social History Tobacco Use - Smoking status: Never Smoker Substance Use Topics - Alcohol use: Yes Alcohol/week: 2.5 standard drinks Types: 1 Glasses of Wine (5oz) per week - Drug use: No Home Medications: HYDROCODONE-ACETAMINOPHEN 5 MG-500 MG TAB Take TWO (2)tablet every four(4) hours as needed for pain. CHOLESTYRAMINE-ASPARTAME 4 GRAM PACKET 1 PACK QDAY oxycodone hcl/acetaminophen( PERCOCET 5 MG-325 MG TAB) as necessary for back pain meloxicam(MOBIC 7.5 MG TAB) Take one(1) tablet daily. escitalopram oxalate(LEXAPRO 20 MG TAB) Take one(1) tablet d aily. esomeprazole mag trihydrate(NEXIUM 40 MG CAP) Take one(1) ca psule daily. simvastatin(ZOCOR 20 MG TAB) Take one(1) tablet daily at bed time. ATENOLOL 50 MG TAB Take one(1) tablet daily. Inpatient Medications: Current Facility-Administered Medications Medication Dose Route Frequency - perflutren lipid microspheres 1.1 mg/mL 1.3 mL injec tion (DEFINITY) 1.3 mL INTRAVENOUS DIRECTED PRN Allergies: Neurontin [Gabapentin]; Soap; Sulfa (Sulfonamide Antibiotics) Objective PHYSICAL EXAM: There were no vitals filed for this visit. No data recorded. Physical Exam {LAB CHOICE 1 DAY:8577017} EKG Results {EKG RESULTS:99476} IMAGING: No orders to display Overall Impression Patient Active Hospital Problem List: No active hospital problems. Problem Based Assessment/Plan Maintenance: VTE Prophylaxis: {VT VTE PROPHYLAXIS:50590} Nutrition: {VT NUTRITION:01213} IVF's: {VT IVF:52257} Emergency Contact Info: Extended Emergency Contact Information Primary Emergency Contact: Pierre Barcenas Address: [address] [place] [id number] Relation: Spouse Secondary Emergency Contact: Twyla Barcenas/Ramiro Mobile Relation: Son DNR/CODE Status: {DNR/CODE STATUS:826744} This note is not final until attested/signed by the attendin g physician Signature: Wilmer Garcia MD Patient Name: Giovanny Barcenas Date: June 14, 2019 Time: 3:33 PM Wilmer Garcia MD 06/14/2019 3:57 PM [facility] History and Physical Patient Name: Giovanny Barcenas Date: June 14, 2019 Time: 3:33 PM Primary Care Provider: Kaylyn Aburto DO Date of Admission: 06/14/2019 Admitting Facility: [facility] enter Service: [facility] Medicine Inpatient Service Attending: Dr. Shady Mosley Reason For Admission: Pericardial Effusion Subjective HPI: Giovanny is a 79 year old female with a his tory of HTN, IBS, spinal stenosis HLD, GERD, Atrial Fibrillation non smoker who presented to the [facility] for small coronary artery perforation. Patient was at [place] [facility] for a STEMI after an episode of crushing chest pain which patient had multiple stents placed and a IABP xu delmy while at [place]. Patient was started on aspirin and brilinta for her recent stent placement. Overnight, [place] ent developed increased SOB and was found to have a pericardia l effusion. It was noted that during patient's PCI patient had a small coronar y artery perforation which is believed to have lead to a hemorrhagic pericardial effusion. Patient was transferred from [place] directly into the CVICU [facility] down to optical laboratory mechanic. Review of Systems Constitutional: Negative for fever. Respiratory: Positive for shortness of breath (upon deep benito aths). Cardiovascular: Negative for chest pain. Gastrointestinal: Negative for diarrhea, nausea and vomiting . All other systems reviewed and are negative. Past Medical History: SEE CHRONIC ISSSUES: PAST MEDICAL HISTORY Diagnosis Date - ATRIAL FIBRILLATION - BENIGN HYPERTENSION - CHRONIC CHOLECYSTITIS NEC - ESOPHAGEAL REFLUX - HYPERLIPIDEMIA NEC/NOS - SCIATICA Past Surgical History: PAST SURGICAL HISTORY Procedure Laterality Date - BREAST RECONSTRUCTION left - L'SCOPE CARO W/CHOLANGIOGRAPHY 01/25/08 - MASTECTOMY, RADICAL left - PAST SURGICAL HISTORY OF lung infection, clensing - TOTAL ABDOM HYSTERECTOMY Hysterectomy, NANCY Past Family History: No family history on file. Past Social History: Social History Tobacco Use - Smoking status: Never Smoker Substance Use Topics - Alcohol use: Yes Alcohol/week: 2.5 standard drinks Types: 1 Glasses of Wine (5oz) per week - Drug use: No Home Medications: HYDROCODONE-ACETAMINOPHEN 5 MG-500 MG TAB Take TWO (2)tablet every four(4) hours as needed for pain. CHOLESTYRAMINE-ASPARTAME 4 GRAM PACKET 1 PACK QDAY oxycodone hcl/acetaminophen( PERCOCET 5 MG-325 MG TAB) as necessary for back pain meloxicam(MOBIC 7.5 MG TAB) Take one(1) tablet daily. escitalopram oxalate(LEXAPRO 20 MG TAB) Take one(1) tablet d aily. esomeprazole mag trihydrate(NEXIUM 40 MG CAP) Take one(1) ca psule daily. simvastatin(ZOCOR 20 MG TAB) Take one(1) tablet daily at bed time. ATENOLOL 50 MG TAB Take one(1) tablet daily. Inpatient Medications: Current Facility-Administered Medications Medication Dose Route Frequency - perflutren lipid microspheres 1.1 mg/mL 1.3 mL injec tion (DEFINITY) 1.3 mL INTRAVENOUS DIRECTED PRN Allergies: Neurontin [Gabapentin]; Soap; Sulfa (Sulfonamide Antibiotics) Objective PHYSICAL EXAM: 06/14/19 1553 Temp: 36.2 ?C (97.2 ?F) TempSrc: Temporal No data recorded. Physical Exam Constitutional: She is oriented to person, place, and time. She appears well-developed. HENT: Head: Normocephalic and atraumatic. Eyes: EOM are normal. Neck: Normal range of motion. Neck supple. Cardiovascular: Tachycardia, Distant heart sounds Pulmonary/Chest: Effort normal and breath sounds normal. No stridor. No respiratory distress. She has no wheezes. Patient on O2 NC Abdominal: Soft. Bowel sounds are normal . She exhibits no distension. There is no tenderness. Musculoskeletal: She exhibits no edema. Lower extremities cold to palpation Neurological: She is alert and oriented to person, place, and time. No cranial nerve deficit. EKG Results None yet IMAGING: No orders to display Labs- WBC 13.6 Hg 10.9 Platelet 136 Patient Active Hospital Problem List: No active hospital problems. Problem Based Assessment/Plan Maintenance: VTE Prophylaxis: {VT VTE PROPHYLAXIS:48789} Nutrition: {VT NUTRITION:91207} IVF's: {VT IVF:15114} Emergency Contact Info: Extended Emergency Contact Information Primary Emergency Contact: Pierre Barcenas Address: [address] [place] [address] Relation: Spouse Secondary Emergency Contact: Barcenas Twyla/Ramiro Mobile Relation: Son DNR/CODE Status: {DNR/CODE STATUS:147282} This note is not final until attested/signed by the attendin g physician Signature: Wilmer Garcia MD Patient Name: Giovanny Barcenas Date: June 14, 2019 Time: 3:33 PM history physical on 2019-06-14 HISTORY HNO ID: [id number] Normal 06-14-2019 [place] PHYSICAL Author: Wilmer Garcia General Service: Cardiovascular Medicine Medical Author Type: Physician Center Type: [facility] ([id number]) Filed: 06/14/2019 5:40 PM Note Text: Attestation signed by Shady Mosley at 06/14/2019 6:43 P M I performed a history and ph ysical examination of the patient and discussed the management with the resident . I reviewed the resident's note and agree with the documented findings and plan of care. 79-year-old woman with an anterior wall myocardial infarctio n an acute intervention with drug-eluting stents of the LAD . She developed a hemorrhagic pericardial effusion and was transferred for further m anagement. She has had evidence of tamponade on echocardiogram and cardiogenic shoc k requiring intra-aortic balloon pump placement. Patient was referred fo r urgent procedure. Cardiac catheterization films were outside hospital were rev iewed. Patient underwent repeat coronary angiogram. There is no evidence of perforation from the LAD. Subsequently, a pericardiocentesis was performed with removal of 350 mL of bloody fluid. Patient had marked improvement in her he modynamics. Coronary artery disease: I have changed her Ticagelor to Xu vix due to her bleeding risk. She'll be placed on high-dose statin Pericardial effusion, pericardial drain is in place. Repeat limited 2-D echocardiogram in the a.m. If no accumulation of fluid will consider discontinuation of pericardial drain Cardiogenic shock: Improved with pericardiocentesis. Likely discontinue intra-aortic balloon pump in the a.m. Shady Mosley MD [facility] History and Physical Patient Name: Giovanny Barcenas Date: June 14, 2019 Time: 3:33 PM Primary Care Provider: Kaylyn Aburto DO Date of Admission: 06/14/2019 Admitting Facility: [facility] enter Service: [facility] Family Medicine Inpatient Service Attending: Dr. Shady Mosley Reason For Admission: Pericardial Effusion Subjective HPI: Giovanny is a 79 year old female with a history of HTN, IBS, sp inal stenosis HLD, GERD, Atrial Fibrillation non smoker who presented to [facility] for small coronary artery perforation. Patient was at [facility] yesterday for a STEMI after an episode of crushing chest rigoberto n which the patient had multiple stents placed and a IABP placed while a t [place]. Patient was started on aspirin and brilinta for her recent s tent placement. Overnight, patient developed increased SOB and wa s found to have a pericardial effusion. [facility] had a small coronary artery perforation which is bel ieved to have lead to a hemorrhagic pericardial effusion. Patient was palafox sferred from [place] directly into the CVICU and taken down to optical laboratory mechanic. Review of Systems Constitutional: Negative for fever. Respiratory: Positive for shortness of breath (upon deep benito aths). Cardiovascular: Negative for chest pain. Gastrointestinal: Negative for diarrhea, nausea and vomiting . All other systems reviewed and are negative. Past Medical History: SEE CHRONIC ISSSUES: PAST MEDICAL HISTORY Diagnosis Date - ATRIAL FIBRILLATION - BENIGN HYPERTENSION - CHRONIC CHOLECYSTITIS NEC - ESOPHAGEAL REFLUX - HYPERLIPIDEMIA NEC/NOS - SCIATICA Past Surgical History: PAST SURGICAL HISTORY Procedure Laterality Date - BREAST RECONSTRUCTION left - L'SCOPE CARO W/CHOLANGIOGRAPHY 01/25/08 - MASTECTOMY, RADICAL left - PAST SURGICAL HISTORY OF lung infection, clensing - TOTAL ABDOM HYSTERECTOMY Hysterectomy, NANCY Past Family History: No family history on file. Past Social History: Social History Tobacco Use - Smoking status: Never Smoker Substance Use Topics - Alcohol use: Yes Alcohol/week: 2.5 standard drinks Types: 1 Glasses of Wine (5oz) per week - Drug use: No Home Medications: HYDROCODONE-ACETAMINOPHEN 5 MG-500 MG TAB Take TWO (2)tablet every four(4) hours as needed for pain. CHOLESTYRAMINE-ASPARTAME 4 GRAM PACKET 1 PACK QDAY oxycodone hcl/acetaminophen(PERCOCET 5 MG-325 MG TAB) as nec essary for back pain meloxicam(MOBIC 7.5 MG TAB) Take one(1) tablet daily. escitalopram oxalate(LEXAPRO 20 MG TAB) Take one(1) tablet d aily. esomeprazole mag trihydrate(NEXIUM 40 MG CAP) Take one(1) ca psule daily. simvastatin(ZOCOR 20 MG TAB) Take one(1) tablet daily at bed time. ATENOLOL 50 MG TAB Take one(1) tablet daily. Inpatient Medications: Current Facility-Administered Medications Medication Dose Route Frequency - [MAR Hold due to Transfer] perflutren lipid microspheres 1 .1 mg/mL 1.3 mL injection (DEFINITY) 1.3 mL INTRAVENOUS DIRECTED PRN Allergies: Neurontin [Gabapentin]; Soap; Sulfa (Sulfonamide Antibiotics) Objective PHYSICAL EXAM: 06/14/19 1553 Temp: 36.2 ?C (97.2 ?F) TempSrc: Temporal No data recorded. Physical Exam Constitutional: She is oriented to person, place, and time. She appears well-developed. HENT: Head: Normocephalic and atraumatic. Eyes: EOM are normal. Neck: Normal range of motion. Neck supple. Cardiovascular: Tachycardia, Distant heart sounds Pulmonary/Chest: Effort normal and breath sounds normal. No stridor. No respiratory distress. She has no wheezes. Patient on O2 NC Abdominal: Soft. Bowel sounds are normal. She exhibits no di stension. There is no tenderness. Musculoskeletal: She exhibits no edema. Lower extremities cold to palpation Neurological: She is alert and oriented to person, place, an d time. No cranial nerve deficit. EKG Results None yet IMAGING: No orders to display Labs- WBC 13.6 Hg 10.9 Platelet 136 Patient Active Hospital Problem List: No active hospital problems. Problem Based Assessment/Plan Pericardial Effusion- -Taken to public works laborer for diagnostic/treatment purposes, decisi on will be made intraoperatively about treatment of coronary peforation -Echo performed, small pericardial effusion present, officia l read pending -Hg 13 at baseline and dropped to 8.3 post procedure, receiv ed 1 unit of PRBCs and hg 10.9 currently, will continue to monitor hemody namic status with CBC and repeat vitals -Will transfuse PRN for anemia CAD- -Post multiple stent placement at [place] on 06/13 -Will switch patient from brilinta to plavix and will contin ue aspirin daily -Atorvastatin 40 mg -Continuous Telemetry -No heparin due bleed risk -No beta tee due to hypotension HTN -Holding Atenolol due to hypotension and will restart when a ppropriate A. Fib?-Documented in history, would confirm with patient fi rst. ChadVasc 2 -Will restart atenolol when appropriate -Not on anticoagulation currently at home, would hold off du e to current bleed risk HLD- -Will start patient on 40 mg atorvastatin GERD -Will restart PPI Maintenance: VTE Prophylaxis: Continous sequential compression devices, N o pharmacological prophylaxis due to bleed risk Nutrition: NPO for procedure Emergency Contact Info: Extended Emergency Contact Information Primary Emergency Contact: Pierre Barcenas Address: [address] [place] [address] Relation: Spouse Secondary Emergency Contact: Twyla Barcenas/Ramiro Mobile Relation: Son DNR/CODE Status: FULL CODE This note is not final until attested/signed by the attendin liz physician Signature: Wilmer Garcia MD Patient Name: Giovanny Barcenas Date: June 14, 2019 Time: 3:33 PM hgb on 2019-06-14 Hemoglobin (Bld) [Mass/Vol] 10.8 11.2-15.7 g/dL Low [facility] (00 000) Comment: Performed By: #### HGBI #### [place] [address] hemogram/diff on 11-06-22 Abs Immature Grans 0.11 0.00-0.05 thou/cmm High 06-14-2019 [facility] (00 000) Comment: Performed By: #### CBCD1 ### # [place] [address] Abs Neut (ANC) 11.14 1.56-6.13 thou/cmm High 06-14-2019 [facility] ([id number]) Comment: Performed By: #### CBCD1 ### # [place] [address] Abs. Baso 0.01 0.01-0.08 thou/cmm Normal 06-14-2019 [facility] ([id number]) Comment: Result Comment: Smear jorge monet; reji agrees with automated differential Performed By: #### CBCD1 ### # [place] [address] Abs. [place] 1.16 0.27-0.70 thou/cmm High 06-14-2019 [facility] ([id number]) Comment: Performed By: #### CBCD1 ### # [place] [address] Basophils/100 WBC (Bld) 0.1 % Normal 2018 [facility] ([id number]) Comment: Performed By: #### CBCD1 ### # [address] [place] [address] Eosinophils (Bld) 0.00 0.00-0.31 thou/cmm Normal 06-14-2019 [facility] ([id number]) Comment: Performed By: #### CBCD1 ### # [facility] [address] [place], [place] [address] Eosinophils/100 WBC (Bld) 0.0 % Normal 05-25 [facility] ([id number]) Comment: Performed By: #### [id number] ### # [facility] [address] [place], [place] [address] Immature Grans 0.80 % Normal 06-14-2019 [employer] [facility] ([id number]) Comment: Performed By: #### [id number] ### # [facility] [address] [place], [place] [address] Lymphocytes (Bld) 1.23 1.18-3.74 thou/cmm Normal 06-14-2019 [employer] [#/Vol] [facility] tem (75644) Comment: Performed By: #### [id number] ### # [facility] [address] [place], [place] [address] Lymphocytes/100 WBC (Bld) 9.0 % Normal 05-25 [employer] [facility] (97505) Comment: Performed By: #### [id number] ### # [facility] [address] [place], [place] [address] Monocytes/100 WBC (Bld) 8.5 % Normal 2018 [employer] [facility] (04438) Comment: Performed By: #### [id number] ### # [facility] [address] [place], [place] [address] Seg Neutrophil 81.6 % Normal 06-14-[address] [employer] [facility] (72532) Comment: Performed By: #### [id number] ### # [facility] [address] [place], [place] [address] Erythrocyte distribution 15.9 11.7-14.4 % High 06-14 [employer] width (RBC) [Ratio] System (36674) Comment: Performed By: #### CBCD1 ### # [facility] [address] [place], [place] [address] Hematocrit (Bld) [Volume 34.0 34.1-44.9 % Low 06-14 [facility]] System (00 000) Comment: Performed By: #### [id number] ### # [facility] [address] [place], [place] [address] Hemoglobin (Bld) [Mass/Vol] 10.9 11.2-15.7 g/dL Low [facility] (00 000) Comment: Performed By: #### [id number] ### # [facility] [address] [place], [place] [address] MCH (RBC) [Entitic mass] 31.7 25.6-32.2 pg Normal 06-14 [facility] (00 000) Comment: Performed By: #### [id number] ### # [facility] [address] [place], [place] [address] MCHC (RBC) [Mass/Vol] 32.1 31.6-34.8 % Normal 06-14-20 19 [facility] (61334) Comment: Performed By: #### [id number] ### # [facility] [address] [place], [place] [address] MCV (RBC) [Entitic vol] 98.8 79.4-94.8 fl High 2018 [facility] (95766) Comment: Performed By: #### [id number] ### # [facility] [address] [place], [place] [address] Platelet mean volume (Bld) 10.2 9.4-12.3 fl Normal [facility] [Entitic vol] System (43644) Comment: Performed By: #### [id number] ### # [facility] [address] [place], [place] [address] Platelets (Bld) [#/Vol] 136 182-369 thou/cmm Low 2018 [facility] (00 000) Comment: Performed By: #### [id number] ### # [facility] [address] [place], [place] [address] RBC (Bld) [#/Vol] 3.44 3.93-5.22 mil/cmm Low 06-14-2019 [facility] (24053) Comment: Performed By: #### CBCD1 ### # [facility] [address] [place], [place] [address] RDW SD 56.8 36.4-46.3 fl High 06-14-2019 [facility] (78212) Comment: Performed By: #### CBCD1 ### # [facility] [address] [place], [place] [address] WBC (Bld) [#/Vol] 13.65 3.98-10.04 thou/cmm High 06-14-2019 [facility] (00 000) Comment: Performed By: #### CBCD1 ### # [facility] [address] [place], [place] [address] hct on 2019-06-14 Hematocrit (Bld) [Volume 33.7 34.1-44.9 % Low 06-14 [facility]] System (00 000) Comment: Performed By: #### HCTI #### [facility] [address] [place], [place] [address] brief op not on 201 07-01-22 BRIEF OP NOT HNO ID: [id number] Normal 06-14-20 19 [facility] Author: Shady Mosley [facility] Service: Interventional Cardiology ([id number]) Author Type: Physician Type: Brief Op Note Filed: 06/14/2019 5:35 PM Note Text: CARDIAC CATHETERIZATION REPORT PATIENT NAME: Giovanny Barcenas SERVICE DATE: 06/14/2019 SERVICE TIME: 5:30 PM Nut Sifter: Dr Mitali Mc Attending: Shady Mosley RECOMMENDATIONS: Pericardial drain to be maintained until re peat echocardiogram can be completed. Continue dual antiplatelet therapy and risk factor modification. Continuing ongoing treatment for c ardiogenic shock. Pre-Procedure Diagnosis: 79-year-old woman admitted last [facility] and was [facility] with an anterior wall myocardial infarction. She underwent acute intervention of the LAD with multiple stents placed. She developed worsening cardiogenic shock and an echocardiogram demonstrated moderate pericardial effusion with possible to have the LAD. She was transferred for evaluation for possible pericardiocentesis. Post- Procedure Diagnosis: Patent stents in the proximal to distal LAD without evidence of perforation. Large pericardial effusion with removal of 350 mL of maribell blood. Procedure: Insertion of right internal jugular central venou s catheter, coronary angiography, pericardiocentesis Access: LFA Procedure risks, benefits were discussed with the patient an d her family in detail at the bedside. Patient was brought to the cathete r lab in guarded condition. The right internal jugular area was prepp ed and draped in usual sterile fashion. The areas anesthetized with 2% lid ocaine. Using ultrasound guidance will right internal jugular vein w as entered with a micropuncture needle. A triple-lumen catheter was xu delmy under fluoroscopy. Attention was turned to the left femoral artery . Under Local anesthesia the LFA was entered by Modified Seldinger's technique using a micro puncture needle. A 6F sheath was introduced in to the LFA . Selective injections were made of the LAD using an EBU 3.5 g uiding catheter. Once confirmation that there was no further on a p erforation attention was turned to the subxiphoid region. The area had been prepped and draped. Was anesthetized with 1% lidocaine. A micropunct ure needle was used to gain access to the pericardial space. The tract was dilated up to 8 Monegasque. The pericardial drain was placed. 350 mL of blood was removed. The pigtail catheter was sutured into place. The le ft femoral sheath was removed and hemostatsis was established using Ang ioseal closure device. There was no bleeding at the end of the procedure. T he pt was returned to the recovery room in a stable condition. FINDINGS: Coronary Angiography: Left Main: No significant disease Left Anterior Descending: Moderate caliber vessel with paten t stents from the proximal to the distal vessel. No evidence of perfo ration was identified. Circumflex: Large dominant vessel with minimal disease Right Coronary Artery: Not injected Complications: None SIGNATURE: Shady Mosley MD DATE: June 14, 2019 TIME: 5:30 PM activated ptt on 11-06-22 aPTT Coag (Bld) [Time] 23.9 23.0-32.4 sec Normal 019 [facility] (00 000) Comment: Result Comment: Unfractionat ed Heparin Therapeutic Ranges: Standard Heparin Nomogram: 53 to 78 seconds (anti-Xa le evi of 0.3 to 0.7 U/mL) Low Dose/ACS Nomogram: 49 to 67 seconds (anti-Xa le evi of 0.2 to 0.5 U/mL) Stroke Treatment Nomogram: 49 to 67 seconds (anti-Xa le evi of 0.2 to 0.5 U/mL) Note: The APTT therapeutic r gwyn has been determined for the current lot of laboratory AP TT reagent in use throughout the [facility]. Performed By: #### APTT #### [facility] [address] [place], [place] [address] xr fluoro guidance for therapy injection on 2019-05-26 XR FLUORO GUIDANCE ORIGINAL Normal 05-26-2019 [facility] THERAPY INJECTION [facility] ([place]) Images acquired, not reported on this accession number. ([id number]) xr fluoro guidance for therapy injection on 2019-04-12 XR FLUORO GUIDANCE ORIGINAL Normal 04-12-2019 [facility] THERAPY INJECTION [facility] ([place]) Images acquired, not reported on this accession number. ([id number]) Encounters Date Type Reason Provider Location 06-14-2019 - Patient encounter [facility] procedure UNKNOWN PROVIDER Procedures Procedure Name Date Provider Location Antibody screen 06-15-2019 [facility] ([address]) Comment: Performed By: #### APTT #### [place] [address] Payers Payer Name Policy Number Location [employer] CHO[employer] PPO/HMO [id number] [facility] ([id number]) [id number] [facility] ([id number]) The following information is from the original human readable contentNo Payer Records FoundNo Payer Records FoundNo Payer Records FoundNo Payer Records FoundNo Payer Records Found Summary Purpose Family History No Family History Records FoundNo Family History Records FoundNo Family History Records FoundNo Family History Records Found Advance Directives No Advanced Directives Records FoundNo Advanced Directives Records FoundNo Advanced Directives Records FoundNo Advanced Directives Records Found Additional Source Comments FOR RECORDS PERTAINING TO PATIENTS WHO ARE OR HAVE BEEN ENROLLED IN A CHEMICAL DEPENDENCY/SUBSTANCE ABUSE PROGRAM, SOME INFORMATION MAY BE OMITTED. This clinical summary was aggregated from multiple sources. Caution should be exercised in using it in the provision of clinical care. This summary normalizes information from multiple sources, and as a consequence, information in this document may materially changethe coding, format and clinical context of patient data. In addition, data may be omittedin some cases. CLINICAL DECISIONS SHOULD BE BASED ON THE PRIMARY CLINICAL RECORDS. [facility] provides no warranty or guarantee of the accuracy or completeness of information in this document. UNRECOGNIZED CONTENT PROVIDED BELOW FOR UNRECOGNIZED SECTION INFORMATION SOURCE DATE CREATED AUTHOR AUTHOR'S ORGANIZATIO N 06/14/2019 [facility] DATE CREATED AUTHOR AUTHOR'S ORGANIZATIO N 06/17/2019 [facility] DATE CREATED AUTHOR AUTHOR'S ORGANIZATIO N 07/25/2019 [facility] DATE CREATED AUTHOR AUTHOR'S ORGANIZATIO N 03/21/[address] [facility] ([place])
== END | disposition home or self-care (01) ==
LOC: LABSPEC 14:11
PROVIDERS: PCP Family Medicine; Referring Provider Family Medicine; Visit Provider Family Medicine
DX: N39.0 Urinary tract infection, site not specified (principal)
CPT/HCPCS: 87086; 87088

== ENCOUNTER → 2020-04-10 08:54 | Outpatient (CLI) | payer MEDICARE, SELFPAY ==
[2019-06-14 10:04] VITALS: BMI 28.0
[2020-04-04 09:04] VITALS: BMI 26.4
[2020-04-10 10:40] LABS: AST(SGOT) 16 U/L (15-37); Alanine Aminotransfer ALT/SGPT 17 U/L (13-56); Albumin, Serum 3.4 g/dL (3.2-5.0); Alkaline Phosphatase 81 U/L (45-117); Anion Gap 7 (5-15); BUN 32 mg/dL (7-18); BUN/Creat Ratio 16.5 RATIO (10-20); Bilirubin, Direct 0.18 mg/dL (0.00-0.30); Calcium,Total 8.9 mg/dL (8.5-10.1); Chloride 108 mmol/L (98-107); Cholesterol 208 mg/dL (200); Creatinine, Serum 1.94 mg/dL (0.55-1.02); EST Glomerular Filtration Rate 26 mL/min (>60); Est Glom Filt Rate - Afr Amer 32 mL/min (>60); Globulin 3.8 g/dL (2.2-4.2); Glucose 89 mg/dL (74-106); High Density Lipoprotein 52 mg/dL; Potassium 4.2 mmol/L (3.5-5.1); Protein, Total 7.2 g/dL (6.4-8.2); Sodium Level 142 mmol/L (136-145); Triglycerides 108 mg/dL; Very Low Density Lipoprotein 22 mg/dL (5-40)
== END ==
PROVIDERS: PCP Family Medicine; Referring Provider Internal Medicine Cardiovascular Disease; Visit Provider Internal Medicine Cardiovascular Disease
DX: E78.5 Hyperlipidemia, unspecified (principal); I25.10 Atherosclerotic heart disease of native coronary artery without angina pectoris
CPT/HCPCS: 36415; 80048; 80061; 80076

== ENCOUNTER → 2020-08-08 | Outpatient (CLI) | payer MEDICARE, SELFPAY ==
[2019-06-14 10:04] VITALS: BMI 28.0
[2020-04-04 09:04] VITALS: BMI 26.4
[2020-08-08 17:41] LABS: Absolute Lymphocyte Count 0.72 X10^3/uL (0.83-4.51); Basophil# 0.03 X10^3/uL; Basophil% 0.7 % (0-1); Eosinophils% 2.3 % (0-5); Hematocrit 35.6 % (37-47); Hemoglobin 10.4 g/dL (12.0-15.0); Lymphocyte # 0.72 X10^3/ul (4.0); Lymphocyte % 16.3 % (19-41); Mean Corp Hgb Conc 29.2 g/dL (32-36); Monocyte# 0.53 X10^3/uL; NRBC Flagged by Analyzer 0 % (0-5); Neutrophil # 3.02 X10^3/uL (2.7-7.7); Neutrophil % 68.5 % (47-70); Platelet Count 153 K/mm3 (150-450); RBC Distribution Width CV 15.6 % (11.6-14.6); Red Blood Count 3.36 M/mm3 (4.2-5.4); White Blood Count 4.4 K/mm3 (4.4-11.0)
== END | disposition home or self-care (01) ==
LOC: MFPLAB 11:57
PROVIDERS: PCP Family Medicine; Referring Provider Family Medicine; Visit Provider Family Medicine
DX: M25.559 Pain in unspecified hip (principal); W19.XXXA Unspecified fall, initial encounter
CPT/HCPCS: 36415; 85025

== ENCOUNTER → 2020-08-22 | Outpatient (CLI) | payer MEDICARE, SELFPAY ==
[2019-06-14 10:04] VITALS: BMI 28.0
[2020-08-20 14:05] VITALS: BMI 24.3
== END | disposition home or self-care (01) ==
PROVIDERS: PCP Family Medicine; Visit Provider Family Medicine
DX: Z20.828 Contact with and (suspected) exposure to other viral communicable diseases (principal)
CPT/HCPCS: 87635; U0003

== ENCOUNTER → 2021-03-05 14:06 | Outpatient (CLI) | payer MEDICARE, SELFPAY ==
[2019-06-14 10:04] VITALS: BMI 28.0
[2020-08-20 14:05] VITALS: BMI 24.3
[2021-02-03 14:41] VITALS: BMI 26.1
--- NOTE | 2021-03-05 14:07 | BD_ITS ---
STUDY: DUAL ENERGY X-RAY ABSORPTIOMETRY / DXA REASON FOR EXAM: Female, 80 years old. M85.89. Early menopause. TECHNIQUE: Bone Mineral Density (BMD) measurements of lumbar spine and right forearm were obtained. The patient is status post bilateral hip replacement. COMPARISON: None. FINDINGS: Lumbar Spine (L1-L4): g/cm2 (0.866) / T-score (-2.8) / Z-score (-0.9) Findings are suggestive of osteoporosis with a high fracture risk. Right Forearm: g/cm2 (0.581) / T-score (-3.4) / Z-score (-0.4) BD/Dexa Bone Density Study IMPRESSION: The patient is considered osteoporotic as outlined below according to World Hilario Organization (WHO) criteria with a high fracture risk. Reference Information: The T-score is the number of standard deviations above or below the standard which is normal for young adults at their peak bone mineral density. The World Health Organization (WHO) interprets the T-scores as follows: Above -1 Normal bone density Between -1 and -2.5 Osteopenia Equal to / or below -2.5 Osteoporosis As a practical clinical guideline, osteopenia may be graded as follows: Mild -1 through -1.5 Moderate -1.6 through -2.0 Severe -2.1 through -2.4 The Z-score is the number of standard deviations above or below age-matched controls. A Z-score of less than -1.5 would be considered abnormal. References: 1. NIH Osteoporosis and Related Bone Diseases www osteo.org 2. International Society for Clinical Densitometry www iscd.org 3. National Osteoporosis Foundation www nof.org Electronically Signed: Bayron Tucker MD at 15:38 EDT , Service support ,
== END ==
PROVIDERS: PCP Family Medicine; Referring Provider Family Medicine; Visit Provider Family Medicine
DX: Z78.0 Asymptomatic menopausal state (principal); M85.89 Other specified disorders of bone density and structure, multiple sites
CPT/HCPCS: 77080

== ENCOUNTER 2021-04-19 11:28 | Emergency (ER) | payer MEDICARE, SELFPAY ==
[2019-06-14 10:04] VITALS: BMI 28.0
[2021-02-03 14:41] VITALS: BMI 26.1
[2021-04-19] VITALS (7 sets, daily range): BP systolic 121–150; BP diastolic 67–90; PULSE 62–69; RESP 12–20; TEMP 36.4; O2SAT 94–99; BMI 29.2
--- NOTE | 2021-04-19 11:49 | RAD_ITS ---
STUDY: X-RAY - RIGHT WRIST REASON FOR EXAM: Female, 80 years old. Injury, fall, pain TECHNIQUE: 3 view(s) of the wrist were obtained. COMPARISON: None. FINDINGS: Colles'' type fracture, nondisplaced fracture through the base of the ulnar styloid, impacted and dorsally angle related fracture of the distal radial metadiaphysis without visible involvement of the articular surface. The distal radioulnar joint is maintained. The radiocarpal articulation is maintained. Intercarpal articulations are maintained. Bones of the wrist and proximal hand appear acutely intact. RAD/Wrist min 3 Views IMPRESSION: Colles'' type fracture of the distal radius and ulna. Electronically Signed: Isaiah Galeano MD at 13:13 EDT Tel , Service support ,
--- NOTE | 2021-04-19 11:49 | EDS_ITS ---
HPI History of Present Illness Chief Complaint: Upper Extremity Injury Detail of Chief Complaint: Fall with right wrist injury that occurred approximately 11:30 PM last nigh Informant: patient Onset/Context/Timing Onset: Yesterday Narrative Narrative: Patient had a fall with head injury that occurred last evening. She states that she was going into the bathroom while using her cane and she stubbed her toe and she fell. No loss of consciousness. She injured her right wrist. She hit her head but refused to come in last evening. Patient states she bruises very easily. Patient denies head or neck pain. She denies chest pain or shortness of breath. [facility] Medical History (Updated 04/19/21 @ 15:[address] David Espitia, DO) Acute WI, anterior wall, initial episode of care Anxiety and depression Atherosclerosis of coronary artery of [place] heart without angina pectoris COVID-19 virus detected (08/22/20) Essential (primary) hypertension History of acute anterior wall myocardial infarction (06/13/19) History of ST elevation myocardial infarction (STEMI) (06/13/19) HLD (hyperlipidemia) IBS (irritable bowel syndrome) Pericardial effusion without cardiac tamponade (06/14/19) Shock, cardiogenic (06/13/19) Spinal stenosis Home Medications pregabalin 50 mg PO DAILY 06/13/19 [History Last Taken 1 Day Ago ~06/13/19] citalopram 20 mg tablet 20 mg PO DAILY 06/20/19 [History Last Taken Unknown] hydrocodone-acetaminophen 5-325mg 5mg-325mg 1 tab PO Q8H PRN tab 06/22/19 [History Last Taken Unknown] coenzyme Q10 100 mg capsule 100 mg PO DAILY 11/29/19 [History Last Taken Unknown] metoprolol succinate 50 mg tablet,extended release 24 hr 50 mg PO DAILY #90 tab 08/11/20 [Rx Last Taken Unknown] aspirin 81 mg tablet,delayed release 81 mg PO DAILY 08/20/20 [History Last Taken Unknown] losartan 25 mg tablet 25 mg PO DAILY #90 tab 11/03/20 [Rx Last Taken Unknown] furosemide 40 mg tablet 20 mg PO Q OTHER DAY PRN tab 02/03/21 [History Last Taken Unknown] alprazolam 0.5 mg PO BID 04/19/21 [History Last Taken Unknown] hydrocodone-acetaminophen 1 tab PO Q4H PRN PRN 2 Days #15 tablet 04/19/21 [Rx Last Taken Unknown] Allergy/AdvReac Type Severity Reaction Status Date / Time ezetimibe [From Zetia] Allergy Intermediate itching Verified 02/03/21 14:43 Sulfa (Sulfonamide Allergy Itching Verified 02/03/21 14:43 Antibiotics) gemfibrozil AdvReac Severe Severe Verified 02/03/21 14:43 myalgias in back and legs, also dizziness soap AdvReac Intermediate Pre-operative: Verified 02/03/21 14:43 Itching chocolate flavor AdvReac Diarrhea Verified 02/03/21 14:43 gabapentin [From Neurontin] AdvReac Nausea Verified 02/03/21 14:43 Surgical History History of coronary artery stent placement (06/13/19) Status post pericardiocentesis (06/14/19) Social History (Updated 02/03/21 @ 15:[address] Keith Ibarra MD) Smoking Status: Former smoker ROS ROS ED Constitutional Constitutional ED: Reports systems reviewed and no addt'l complaints, except as documented; Denies body ache(s), change in weight or chills Eyes Eyes: Denies acute decrease in peripheral vision, change in vision, double vision or loss of vision ENT ENT ED: Reports none; Denies ear pain, lip swelling, loss taste/smell, neck pain, otalgia or sore throat Cardiovascular Cardiovascular: Reports none; Denies abdominal pain, chest pain with activity, leg edema, lightheadedness, palpitations, rapid heart rate or syncope Respiratory/Chest Respiratory/Chest: Reports none; Denies change in mental status, dry cough, dyspnea, hemoptysis, shortness of breath at rest or shortness of breath with exertion Gastrointestinal Gastrointestinal: Reports none; Denies abdominal pain, change in stool character, diarrhea, hematemesis, hematochezia, melena, rectal bleeding or vomiting Genitourinary Genitourinary ED: Reports none; Denies abdominal discomfort, anuria, dysuria, genital pain or polyuria Musculoskeletal Musculoskeletal: Reports none and other Details: Right wrist injury ; Denies arthralgias, back pain, difficulty walking, extremity pain, muscle weakness or myalgias Integumentary Reports none; Denies abscess or rash Neurologic Neurologic: Reports none; Denies abnormal gait, confusion, focal weakness, frequent falls, headache(s), loss of vision, numbness, paresthesias, radicular pain, vertigo or weakness Psychiatric Psychiatric: Reports systems reviewed and no addt'l complaints, except as documented and none; Denies behavioral changes, confusion, difficulty concentrating, hallucinations, suicidal ideation, tactile hallucinations or visual hallucinations Endocrine Endocrinology: Denies none, cold intolerance, excessive sweating, fatigue or heat intolerance Hematologic/Lymphatic Hematologic/Lymphatic: Reports none; Denies anemia, easy bleeding or easy bruising Allergic/Immunologic Allergic/Immunologic ED: Denies as per HPI, none, lip swelling, mouth swelling, throat swelling, tongue swelling or hives EXAM Physical Exam Const Vital Signs: 04/19/21 11:29 Temperature 97.5 F L Temperature Source Temporal Pulse Rate 65 Respiratory Rate 16 Blood Pressure 147/80 H Blood Pressure Mean 102 Pulse Ox 94 Oxygen Delivery Method Room Air Positive well nourished and well developed General Appearance ED: well developed and NAD HEENT Reports TM's clear and moist mucous membranes HEENT Narrative: Patient has ecchymosis and bruising noted to the left forehead as well as the left side of the chin. She has a healing laceration to the mucosal surface of the lower lip. No dental trauma noted. She has no tenderness over the mandible. normocephalic and atraumatic; Negative for trauma or tenderness Tympanic Membrane ED: Yes TM's clear Eyes PERRL and EOMs intact bilaterally General Eye ED: Negative for pale conjunctiva or scleral icterus Neck no lymphadenopathy, supple and no JVD General: Negative for tenderness Chest Wall inspection of chest normal and palpation of chest normal Chest: Negative for tenderness Resp normal respiratory effort and clear to auscultation bilaterally Effort and Inspection: Negative for respiratory distress or pain with movement Auscultation: Negative for rhonchi, wheezes or diminished lung sounds Cardio regular rate, regular rhythm, S1 normal heart sound, S2 normal heart sound and no murmurs Peripheral Pulses: pulses 2+ throughout GI normal to inspection, nondistended, normoactive bowel sounds, soft to palpation, non-tender, non-distended and no masses Back/Spine no CVA tenderness and no thoracic nor lumbar tenderness Extremity Extremity Narrative: Evaluation of the right wrist reveals diffuse soft tissue swelling and deformity. There is ecchymosis and bruising noted. Neurovascular intact distally. No open skin noted. General Extremety ED: Yes edema General Extremity: edema Neuro oriented x3, CN's II-XII intact bilaterally, no sensory deficits noted and gait normal Sensorium / Orientation: awake, alert, oriented to person, oriented to place and oriented to time Motor Exam: strength 5/5 throughout and strength abnormal Psych mental status grossly normal Skin no rashes or lesions noted and no wounds MDM MDM MDM Narrative Medical decision making narrative: Case discussed with orthopedic surgeon on- call Dr. Lynn. He asked me to perform a closed reduction of the distal radius. Patient had procedural sedation and reduction performed by myself. Post reduction x-rays obtained. Orthopedic surgeon reevaluated the post reduction films. At this point he she has a good reduction in will be seen in the office. Patient will be given a prescription for [place] for pain. Procedures Upper Extremity Splints Upper Extremity Splint: Orthoglass and Volar Splint Fabrication: Fabricated Location: Right Other Procedures Procedure(s): Procedural sedation Patient was given propofol 80 mg IV. Good sedation was obtained. I was able to easily reduce the distal radius and post reduction x-rays obtained interpreted by myself as good reduction of the distal radius with improved position of the distal fragment and improvement of length. Discharge Plan Triage Chief Complaint: Upper Extremity Injury ED Provider: David Espitia Dx/Rx/DC Orders Clinical Impression: Closed head injury, Closed fracture of right distal radius Prescriptions: New hydrocodone-acetaminophen [hydrocodone-acetaminophen] 1 TABLET tablet 1 tab PO Q4H PRN PRN (Reason: Pain) 2 Days Qty: 15 RF: 0 No Action citalopram 20 mg tablet 20 mg PO DAILY RF: 0 hydrocodone-acetaminophen [[place]] 5-325 mg tablet 1 tab PO Q8H PRN (Reason: Pain Or Fever) RF: 0 coenzyme Q10 [CoQ-10] 100 mg capsule 100 mg PO DAILY RF: 0 aspirin [Adult Aspirin Regimen] 81 mg tablet,delayed release (DR/EC) 81 mg PO DAILY RF: 0 pregabalin 50 MG capsule 50 mg PO DAILY RF: 0 alprazolam 0.25 mg tablet 0.5 mg PO BID RF: 0 metoprolol succinate 50 mg tablet extended release 24 hr 50 mg PO DAILY Qty: 90 RF: 3 losartan [Cozaar] 25 mg tablet 25 mg PO DAILY Qty: 90 RF: 3 furosemide [Lasix] 40 mg tablet 20 mg PO Q OTHER DAY PRN (Reason: Edema) RF: 0 Primary Care Provider: Candis Lawler Referrals: Candis Lawler MD [Primary Care Provider] - Aneudy Lynn MD [STAFF PHYSICIAN] - 3-5 Days Disposition Disposition: Home, Self Care
--- NOTE | 2021-04-19 11:49 | CT_ITS ---
STUDY: CT BRAIN WITHOUT CONTRAST REASON FOR EXAM: Female, 80 years old. Head trauma, bruising to the left zoroastrianism and chin. RADIATION DOSAGE (If Supplied By Facility): DLP = ( 796.11 ) mGycm TECHNIQUE: Transaxial CT imaging of the brain was performed without administration of intravenous contrast material. Sagittal and coronal 2-D MPR. Individualized dose optimization techniques were used for this CT. COMPARISON: CT head 07/06/2017 FINDINGS: Visualized facial osseous structures within the field of view are acutely intact. Calvarium intact. Sinuses clear. There is mild left lateral periorbital superficial soft tissue swelling, consistent with superficial contusion with no significant cephalohematoma. Orbital contents are normal. The brain exhibits mild features of age-related atrophy, prominent diffuse and confluent low-density changes in the deep white matter consistent with chronic microvascular ischemic disease bifrontal and biparietal. Old infarction of the right frontal centrum semiovale white matter. These features are not substantially changed compared to imaging of 2017. There is no acute intracranial bleed, mass or mass effect nor any specific evidence of acute territorial infarction. CT/Brain/Head without Contrast IMPRESSION: Left lateral periorbital superficial soft tissue contusion. No fracture. No acute cranial process. Old right infarction. Severe chronic white matter disease. Mild atrophy. Electronically Signed: Isaiah Galeano MD at 12:32 EDT Tel , Service support ,
[2021-04-19] MEDS: Ondansetron 4 MG/2 ML Vial IV (14:02)
[2021-04-19] MEDS: Morphine 4 MG/ML Syringe IV (14:02)
[2021-04-19] MEDS: Propofol 200 MG/20 ML Vial IV BOLUS (14:03)
--- NOTE | 2021-04-19 15:21 | RAD_ITS ---
STUDY: X-RAY - RIGHT WRIST REASON FOR EXAM: Female, 80 years old. Post reduction TECHNIQUE: 3 view(s) of the wrist were obtained. COMPARISON: 04/19/21 FINDINGS: The patient is status post reduction and casting of the previously seen fractures of the distal radius and distal ulna. The alignment is improved. There are no radiodense foreign bodies. RAD/Wrist min 3 Views IMPRESSION: Status post reduction and casting with improved alignment. Electronically Signed: Aneudy Hammonds MD at 16:05 EDT Tel , Service support ,
== END 2021-04-19 16:14 | disposition home or self-care (01) ==
PROVIDERS: Emergency Provider Emergency Medicine; PCP Family Medicine
DX: S52.531A Colles' fracture of right radius, initial encounter for closed fracture (principal); S00.83XA Contusion of other part of head, initial encounter; F41.9 Anxiety disorder, unspecified; F32.9 Major depressive disorder, single episode, unspecified; I25.10 Atherosclerotic heart disease of native coronary artery without angina pectoris; I10 Essential (primary) hypertension; E78.5 Hyperlipidemia, unspecified; Z79.899 Other long term (current) drug therapy; Z87.891 Personal history of nicotine dependence; W18.09XA Striking against other object with subsequent fall, initial encounter; Y93.01 Activity, walking, marching and hiking; Y92.008 Other place in unspecified non-institutional (private) residence as the place of occurrence of the external cause; Y99.8 Other external cause status
CPT/HCPCS: 25605; 70450; 73110; 96374; 96375; 99152; 99284; A4216; J2405

== ENCOUNTER → 2021-04-21 | Outpatient (CLI) | payer MEDICARE, SELFPAY ==
[2019-06-14 10:04] VITALS: BMI 28.0
[2021-04-19 11:29] VITALS: BMI 29.2
== END | disposition home or self-care (01) ==
PROVIDERS: Visit Provider Registered Nurse
DX: N39.0 Urinary tract infection, site not specified (principal)
CPT/HCPCS: 87086; 87088; 87186

== ENCOUNTER → 2021-09-11 10:01 | Outpatient (CLI) | payer MEDICARE, SELFPAY ==
[2019-06-14 10:04] VITALS: BMI 28.0
== END ==
PROVIDERS: PCP Family Medicine; Referring Provider Family Medicine; Visit Provider Family Medicine
DX: I10 Essential (primary) hypertension (principal)
CPT/HCPCS: 36415; 80048; 80061

== ENCOUNTER → 2022-03-03 | Outpatient (CLI) | payer MEDICARE, SELFPAY ==
[2019-06-14 10:04] VITALS: BMI 28.0
[2022-03-03 07:12] LABS: Anion Gap 3 (5-15); BUN 34 mg/dL (7-18); BUN/Creat Ratio 15.7 RATIO (10-20); Calcium,Total 8.9 mg/dL (8.5-10.1); Chloride 106 mmol/L (98-107); Creatinine, Serum 2.17 mg/dL (0.55-1.02); EST Glomerular Filtration Rate 23 mL/min (>60); Est Glom Filt Rate - Afr Amer 28 mL/min (>60); Glucose 97 mg/dL (74-106); Potassium 4.5 mmol/L (3.5-5.1); Sodium Level 140 mmol/L (136-145)
[2022-03-03 08:04] LABS: BNP,B-Type NATRIURETIC PEPTIDE 90.5 pg/mL (0-100)
--- NOTE | 2022-03-03 18:00 | STRESSREP_ITS ---
Stress Test Report Pharmacologic myocardial perfusion stress test. 81-year-old lady with a history of chest pain. Stress protocol: Resting EKG demonstrates sinus bradycardia with a rate of 55 bpm normal intervals are noted resting blood pressure is 110/72 mmHg. 0.4 mg of regadenoson was infused per usual protocol followed by Intravenous saline flush injection continuous EKG monitoring was performed. At rest there were no ST or T wave changes noted to suggest abnormal flow reserve and at peak infusion nonspecific ST changes were noted which did not meet the criteria for ischemia. The maximum heart rate was 80 bpm which was 58% of max impact at heart rate. The final blood pressure was 102/72 mmHg. Myocardial perfusion protocol. 11.9 mCi of technetium 99m sestamibi was injected at rest. 0.4 mg of regadenoson was infused per usual protocol. At peak infusion 33.7 mCi of technetium 99m sestamibi was injected stress images were obtained stress and rest images were reconstructed and compared in the short axis vertical long and horizontal long axis. Gated images were also obtained. Perfusion SPECT analysis: Review of the stress images demonstrate normal uptake of tracer noted in all areas of the myocardium. The anterior wall is normally perfused. The rest of the faustin appear to be normally perfused on the rest images as well. No areas o f reversibility are noted to suggest ischemia no previous infarct is noted. Gated SPECT analysis: The gated ejection fraction is 86%. Conclusion: Normal pharmacologic myocardial perfusion stress test. Preserved ejection fraction.
== END | disposition home or self-care (01) ==
LOC: CVS 06:10
PROVIDERS: PCP Family Medicine; Referring Provider Nurse Practitioner Gerontology; Visit Provider Nurse Practitioner Gerontology
DX: R06.00 Dyspnea, unspecified (principal); R07.89 Other chest pain
CPT/HCPCS: 36415; 78452; 80048; 83880; 93017; A9500; A4216; J2785

== ENCOUNTER → 2022-03-16 | Outpatient (CLI) | payer MEDICARE, SELFPAY ==
[2019-06-14 10:04] VITALS: BMI 28.0
--- NOTE | 2022-03-16 11:21 | ECHOD_ITS ---
Reason For Study: DYSPNEA Procedure This was a 2D Doppler, Color Flow transthoracic echocardiogram. Exam performed in department. Left Ventricle Normal LV size. Left ventricular systolic function is normal. The estimated ejection fraction is 60 %. Stage 1 diastolic dysfunction. No regional wall motion abnormalities noted. Right Ventricle Normal RV size. Normal systolic function. Atria Normal left atrium. Normal right atrium. Mitral Valve Normal mitral valve. Tricuspid Valve Normal tricuspid valve. Aortic Valve Trisinus/trileaflet aortic valve. Pulmonic Valve Normal pulmonic valve. Great Vessels Normal aortic root. The pulmonary artery is normal size. Normal inferior vena cava. Pericardium/Pleural No pericardial effusion. MMode/2D Measurements & Calculations LAV(MOD-bp): 37.6 ml LVAd ap4: 20.0 cm2 SV(MOD-sp4): 29.9 ml LAV(MOD-bp) Indexed: 21.8 ml/m2 LVLd ap4: 6.3 cm LAV(MOD-sp2): 55.5 ml EDV(MOD-sp4): 55.3 ml LAV(MOD-sp4): 24.2 ml EDV(sp4-el): 54.0 ml LVAs ap4: 12.1 cm2 LVLs ap4: 5.2 cm ESV(MOD-sp4): 25.4 ml ESV(sp4-el): 23.9 ml EF(MOD-sp4): 54.1 % EF(sp4-el): 55.8 % SV(sp4-el): 30.1 ml LA A4 area: 11.3 cm2 RA A4 area: 13.8 cm2 Doppler Measurements & Calculations MV E max kvng: 85.2 cm/sec Lat Peak E' Kvng: 7.4 cm/sec Med Peak E' Kvng: 5.6 cm/sec MV A max kvng: 100.3 cm/sec E/E' lat: 11.5 E/E' med: 15.2 MV E/A: 0.85 Ao V2 max: 166.9 cm/sec LV V1 max: 75.0 cm/sec Ao max P.1 mmHg LV V1 max P.2 mmHg ECHO/Echo Complete Interpretation Summary Normal LV size. Left ventricular systolic function is normal. The estimated ejection fraction is 60 %. Stage 1 diastolic dysfunction. Ordering Physician: Maria L Collins Referring Physician: Candis Lawler M.D. Performed By: Neida Escamilla RCS
== END | disposition home or self-care (01) ==
LOC: CVS 11:21
PROVIDERS: PCP Family Medicine; Visit Provider Nurse Practitioner Gerontology
DX: R06.02 Shortness of breath (principal)
CPT/HCPCS: 93306

== ENCOUNTER → 2022-08-19 | Outpatient (CLI) | payer MEDICARE, SELFPAY ==
[2019-06-14 10:04] VITALS: BMI 28.0
[2022-08-19 17:55] LABS: Mucous, Urine 0 SEEN /hpf (<or=2+)
[2022-08-19 19:01] LABS: Glucose, Dipstick Normal (Normal); Ketone-Dipstick 5 mg/dl (Negative); Leukocyte Esterase-Dipstick 500 /ul (Negative); Nitrite-Dipstick Negative (Negative); Occult Blood-Urine 50 /ul (Negative); Protein-Dipstick 15 mg/dl (Negative); Specific Gravity, Urine 1.025 (1.002-1.030); Urine Bilirubin Dipstick Negative (Negative); Urine Urobilinogen 1 mg/dl (Normal)
[2022-08-19 19:14] LABS: Color, Urine Amber (Yellow); Urine Clarity Cloudy (Clear)
[2022-08-19 19:19] LABS: Hyaline Cast 10-25 SEEN /lpf (0-5); Squamous Epithelial Cells - UA 10-25 SEEN /hpf (5-10)
[2022-08-19 19:20] LABS: Red Blood Cells-Urine 5-10 SEEN /hpf (0-5); White Blood Cells 10-25 SEEN /hpf (0-5)
[2022-08-19 19:21] LABS: Bacteria 1+ /hpf (None Seen)
== END | disposition home or self-care (01) ==
PROVIDERS: PCP Family Medicine; Visit Provider Nurse Practitioner Family
DX: R39.89 Other symptoms and signs involving the genitourinary system (principal)
CPT/HCPCS: 81001; 87086; 87088

== ENCOUNTER → 2022-10-12 | Outpatient (CLI) | payer MEDICARE, SELFPAY ==
[2019-06-14 10:04] VITALS: BMI 28.0
--- NOTE | 2022-10-12 12:31 | RAD_ITS ---
STUDY: X-RAY CHEST REASON FOR EXAM: Female, 82 years old. Shortness of breath. Dry cough. TECHNIQUE: Frontal and lateral views of the chest. COMPARISON: February 15, 2020. FINDINGS: Mild hyperinflation of the right lung with flattening of the hemidiaphragms. Elevation of the left hemidiaphragm. There is no demonstrated pleural abnormality. Cardiomegaly. Normal mediastinum and brigitte. Normal visualized pulmonary arteries. Aortic tortuosity. Thoracic osteopenia with anterior wedge compression deformity of a lower thoracic vertebral body and increased kyphosis. Normal visualized ribs, clavicles, and shoulders. Large hiatal hernia with air-fluid level. RAD/Chest PA and Lateral IMPRESSION: Cardiomegaly with hyperinflation of the right lung and elevation of the left hemidiaphragm, unchanged. Increase in hiatal hernia with air-fluid level. No acute abnormality. Electronically Signed: Moe John, at 14:00 EST ,
[2022-10-12 12:59] LABS: Hematocrit 39.2 % (37-47); Hemoglobin 12.2 g/dL (12.0-15.0); Mean Corp Hgb Conc 31.1 g/dL (32-36); Mean Corpuscular Hgb 31.6 pg (27.0-32.0); Mean Corpuscular Volume 101.6 fL (81-99); Mean Platelet Vol. 11.4 fl (6.2-12.0); Platelet Count 153 K/mm3 (150-450); RBC Distribution Width SD 52.4 fl (35.1-43.9); Red Blood Count 3.86 M/mm3 (4.2-5.4); White Blood Count 6.4 K/mm3 (4.4-11.0)
[2022-10-12 13:19] LABS: BNP,B-Type NATRIURETIC PEPTIDE 356.4 pg/mL (0-100)
[2022-10-12 13:29] LABS: Anion Gap 3 (5-15); BUN 25 mg/dL (7-18); Calcium,Total 8.8 mg/dL (8.5-10.1); Chloride 109 mmol/L (98-107); Creatinine, Serum 1.78 mg/dL (0.55-1.02); EST Glomerular Filtration Rate 29 mL/min (>60); Est Glom Filt Rate - Afr Amer 35 mL/min (>60); Glucose 86 mg/dL (74-106); Potassium 4.6 mmol/L (3.5-5.1); Sodium Level 143 mmol/L (136-145); Thyroid Stim Hormone (TSH) 3.63 uIU/mL (0.358-3.74)
== END | disposition home or self-care (01) ==
LOC: LAB 12:19
PROVIDERS: PCP Family Medicine; Referring Provider Internal Medicine Cardiovascular Disease; Visit Provider Internal Medicine Cardiovascular Disease
DX: R60.9 Edema, unspecified (principal); R53.83 Other fatigue; R06.00 Dyspnea, unspecified; R05.8 Other specified cough; I25.10 Atherosclerotic heart disease of native coronary artery without angina pectoris; Z86.2 Personal history of diseases of the blood and blood-forming organs and certain disorders involving the immune mechanism; Z79.01 Long term (current) use of anticoagulants
CPT/HCPCS: 36415; 71046; 80048; 83880; 84443; 85027